=== PATIENT | female | born 1930 | race Caucasian/White ===

== ENCOUNTER 2018-12-03 14:21 | Inpatient (IN) ==
[2018-12-03] MEDS ORDERED: *HR* OxyCODONE Immed Rel 5 MG TABLET PO PRN (16:00)
[2018-12-03] MEDS ORDERED: Naloxone 0.4 MG/ML INJ IVP PRN (16:00)
[2018-12-03] MEDS ORDERED: Ondansetron 4 MG/2 ML VIAL IVP PRN (16:00)
[2018-12-03] MEDS ORDERED: *HR* HYDROcodone/Acet 5/325 mg TABLET PO PRN (16:00)
--- NOTE | 2018-12-03 16:16 | Internal Med History&Physical ---
Date of Encounter: 12/03/18 Time of Encounter: 17:14 Internal Medicine - H&P: HPI Chief complaint: Fall with L hip pain, L arm pain Admitted From: Emergency Dept History of present illness: Zayda Nixon is an 87 F w hx HTN, DM2, hypothyroidism, who p/w hip and shoulder pain after a fall. Patient making tea for herself this AM, turned and tripped over her shoelaces and had a mechanical fall from standing height, after which she noticed L hip pain and also that her left arm seemed sore. She denies dizziness, hitting head, N/V, CP, palpitations, SOB, or abd pain. Does have feeling in her left arm and leg. Denies current severe pain; says they treated her well at OSH ED. In the ED, vitals T 97.6, HR 62, RR 18, SBP 140-180, satting 96-98% on RA. Labs show WBC 12, Hb 10, Na 125, Cl 94, Cr 1, BG 320. XR humerus w closed minimally displaced avulsion fx greater tuberosity proximal L humerus c/w fx of rotator cuff tendon attachment. XR hip shows closed communited varus angulated IT fx proximal L femur. Past medical, surgical, social, and family histories reviewed and updated as below. No previous surgeries. Past Med Surg Social Fam HX - Past Medical History Medical history: diabetes, hypertension, thyroid disease - Social History Smoking Status: Never smoker Alcohol use: none Drug use: none - Family History Son Name: Age: 59 Family Member Ethnicity: Non- Living Status: Still Living Hx Family Cardiac Disorders: No Hx Family Respiratory Disorders: No Hx Family Cancer: No Hx Family GI Disorders: No Hx Family Genitourinary Disorders: No Hx Family Endocrine Disorder: No Hx Family Musculoskeletal Disorders: No Hx Family Neuromuscular Disorders: No Hx Family Neurologic Disorders: No Hx Family HEENT Disorders: No Hx Family Autoimmune Disorders: No Hx Family Reproductive Disorders: No Hx Family Psychosocial Disorders: No Hx Family Medical Disorders: No Internal Medicine - H&P: Meds Aspirin [Ecotrin] 325 mg PO DAILY 12/03/18 [History] Atorvastatin [Lipitor] 40 mg PO HS 12/03/18 [History] Furosemide [Lasix] 20 mg PO DAILY 12/03/18 [History] Glimepiride [Amaryl] 4 mg PO DAILY 12/03/18 [History] Levothyroxine [Synthroid] 25 mcg PO 0630 12/03/18 [History] Meloxicam [Mobic] 7.5 mg PO DAILY 12/03/18 [History] Metoprolol Succinate [Toprol Xl] 50 mg PO DAILY 12/03/18 [History] Omeprazole [PriLOSEC] 20 mg PO DAILY 12/03/18 [History] Ramipril [Altace] 10 mg PO DAILY 12/03/18 [History] Triamterene/HCTZ 37.5/25mg [Dyazide] 1 each PO DAILY 12/03/18 [History] Allergy/AdvReac Type Severity Reaction Status Date / Time celecoxib [From Celebrex] Allergy Hives Verified 12/03/18 12:31 codeine Allergy Hives Verified 12/03/18 12:31 All Systems PM: A 10-system review of systems was performed and is negative for pertinent findings except as documented above in the HPI. - Constitutional Vitals: Vital Signs Temp Pulse Resp BP Pulse Ox 12/03/18 17:06 98.3 F 78 16 171/80 96 Intake and Output 12/03/18 12/03/18 12/03/18 07:59 15:59 23:59 Other: Weight 72.5 kg Patient Weight 12/03/18 23:59 Weight 72.5 kg Exam: General: NAD, good eye contact, well appearing, elderly Head: Atraumatic, normocephalic. Face symmetric Eyes: EOMI, sclerae anicteric ENT: Mucous membranes dry. Normal oral mucosa. Trachea midline. Thoracic: No visible chest wall deformities. Normal breath sounds b/l, no wheezing or crackles Cardio: Normal S1 and S2, regular rate and rhythm Abdomen: Soft, nontender, nondistended. Extremities: Warm, well perfused. DP pulses 2+ b/l. No clubbing, cyanosis. No edema. L hip shortened and externally rotated, L arm in sling Skin: Intact. No rashes, bruises, or ulcers Neuro: Awake, fully oriented. Good memory, concentration, attention. Speech fluent. CN II-XII grossly intact. Strength 5/5 in b/l UE and LE - Summary of Assessment and Plan Summary of Assessment and Plan: Zayda Nixon is an 87 F w hx HTN, DM2, hypothyroidism, who p/w L [facility]R showing acute fracture L fem neck and L humerus. L hip fx: - Ortho consulted for likely OR tomorrow - SW consult - PT/OT for after surgery - supportive care with pain and nausea meds L humerus fx: - Ortho consulted Hyponatremia: hypovolemic, w hypochloremia, - will hold lasix and triamterene/hctz - give fluids overnight - recheck in AM DM2: uncontrolled, w hyperglycemia, holding glimepiride and use SSI pe rioperatively HTN: uncontrolled likely 2/2 pain, home toprol 50 daily HLD: home statin and ASA Hypothyroidism: home synthroid PPx: SCDs, then lovenox post-op Tele: yes Activity: per Ortho FEN: ADA then NPO@MN, no MIVF Lines: PIV Consults: Ortho Code: Full Dispo: patient requires inpatient eval and management at this time, anticipate 2-3 days, will likely need SNF
[2018-12-03] MEDS ORDERED: *HR* Dextrose 50 % in Water (Syg) 50 ML SYRINGE IVP PRN (17:22)
[2018-12-03] MEDS ORDERED: D5% in Water 1,000 ML IVC PRN (17:22)
[2018-12-03] MEDS ORDERED: Dextrose Gel 15 GM/37.5 ML TUBE PO PRN ×2 (17:22)
[2018-12-03] MEDS ORDERED: 0.9 % Sodium Chloride 1,000 ML IVC SCH (17:30)
--- NOTE | 2018-12-03 20:31 | Orthopedic Consult Note ---
Date of Encounter: 12/03/18 Time of Encounter: 20:26 History of Present Illness Chief complaint: Left shoulder and left hip pain HPI: Ms. Nixon is a 87 year old [id number] female sustained a fall in her home earlier today. She had immediate pain especially in her left hip and to a lesser degree in her shoulder. She ultimately presented to the emergency room where x-rays taken revealed evidence of a left hip that a left proximal humerus fracture. She is admitted for definitive management of her injuries. Patient denies dizziness, vertigo, blackouts. Patient sustained a mechanical fall resulting in the injuries. I reviewed the patient's completed history and physical exam as well as the completed medical record from both [facility] and [facility]. Pertinent orthopedic examination was a pleasant 87-year-old woman with her left upper extremity in a sling. She has tenderness about the shoulder proximal humerus. Left lower extremity is held in a shortened and rotated position. Distal neurosensory exam is grossly intact. I reviewed x-rays, left shoulder x-rays reveals a small avulsion-type fracture off the greater tuberosity region. X-rays of the left hip reveal a markedly displaced peritrochanteric-type fracture. Laboratory data includes a hemoglobin of 10.3 with a white blood cell count of 12.7. Platelet count is normal at 274. Chemistries include a low sodium of 125 with a normal BUN and creatinine. Blood sugars elevated at 300. Impression: 1. Displaced peritrochanteric fracture left proximal femur 2. Nondisplaced fracture greater tuberosity left proximal humerus Recommendation: In regards to her proximal humerus fracture no surgical intervention is anticipated. Would recommend use of a sling and gentle range of motion exercises as tolerated. Unfortunately, the femoral fracture will require surgical intervention. I discussed with the patient and her daughter that the best treatment option for her would be placement of an intramedullary nail. This would allow the fracture to be stabilized and for her to begin immediate ambulation. We discussed the surgical procedure as well as potential risks and complications including but not limited to bleeding, infection, nerve injury, stiffness, blood clots, nonunion or malunion as well as more commonly seen leg length or rotational deformities. Patient and family understand and agree to proceed with surgery as outlined. Informed consent has been signed. Anticipate proceeding with surgery tomorrow when operating time is available. Thank you very much for allowing me to see and care for Mrs. Nixon. Sincerely, Jose Baldwin,DO Past Med Surg Social Fam HX - Past Medical History Medical history: arthritis, diabetes, hypertension, thyroid disease - Social History Smoking Status: Never smoker Smokeless Tobacco Status: No Alcohol use: none Drug use: none - Family History Son Name: Age: 59 Family Member Ethnicity: Non- Living Status: Still Living Hx Family Cardiac Disorders: No Hx Family Respiratory Disorders: No Hx Family Cancer: No Hx Family GI Disorders: No Hx Family Genitourinary Disorders: No Hx Family Endocrine Disorder: No Hx Family Musculoskeletal Disorders: No Hx Family Neuromuscular Disorders: No Hx Family Neurologic Disorders: No Hx Family HEENT Disorders: No Hx Family Autoimmune Disorders: No Hx Family Reproductive Disorders: No Hx Family Psychosocial Disorders: No Hx Family Medical Disorders: No Medications and Allergies Aspirin [Ecotrin] 325 mg PO DAILY 12/03/18 [History] Atorvastatin [Lipitor] 40 mg PO HS 12/03/18 [History] Furosemide [Lasix] 20 mg PO DAILY 12/03/18 [History] Glimepiride [Amaryl] 4 mg PO DAILY 12/03/18 [History] Levothyroxine [Synthroid] 25 mcg PO 0630 12/03/18 [History] Meloxicam [Mobic] 7.5 mg PO DAILY 12/03/18 [History] Metoprolol Succinate [Toprol Xl] 50 mg PO DAILY 12/03/18 [History] Omeprazole [PriLOSEC] 20 mg PO DAILY 12/03/18 [History] Ramipril [Altace] 10 mg PO DAILY 12/03/18 [History] Triamterene/HCTZ 37.5/25mg [Dyazide] 1 each PO DAILY 12/03/18 [History] Allergy/AdvReac Type Severity Reaction Status Date / Time celecoxib [From Celebrex] Allergy Hives Verified 12/03/18 12:31 codeine Allergy Hives Verified 12/03/18 12:31 All Systems Reviewed: The remainder of the systems were reviewed and are negative Physical Exam - Constitutional Vitals: Temp Pulse Resp BP Pulse Ox 98.7 F 102 18 168/73 94 12/03/18 18:38 12/03/18 18:38 12/03/18 18:38 12/03/18 18:38 12/03/18 18:38 Results - Labs Labs: All other labs normal. - Diagnostic results Shoulder x-ray: image reviewed Hip x-ray: image reviewed Consult Discharge Plan - Plan Referrals: Julio Castillo CNP [Primary Care Provider] -
[2018-12-03] MEDS: Insulin LISPRO 300 UNITS/3 ML VIAL SQ SCH (20:36)
[2018-12-03] MEDS ORDERED: Insulin LISPRO 300 UNITS/3 ML VIAL SQ SCH (21:00)
[2018-12-03] MEDS: Acetaminophen 325 MG TABLET PO PRN (21:45)
[2018-12-04 01:38] LABS: Hematocrit 29.5 % (35.3-44.9); Hemoglobin 9.5 g/dL (11.5-15.4); Mean Corpuscular HGB Conc 32.2 g/dL (31.6-35.5); Mean Corpuscular Hemoglobin 26.9 pg (28.0-33.3); Mean Corpuscular Volume 83.6 fL (83.0-100.0); Mean Platelet Volume 11.1 fL (9.4-12.4); Platelet Count 197 K/mcL (140-400); Red Blood Count 3.53 M/mcL (3.82-4.97); White Blood Count 9.6 K/mcL (4.3-11.1)
[2018-12-04 01:45] LABS: INR 1.1; Prothrombin Time 12.7 Seconds (9.4-12.1)
[2018-12-04 02:02] LABS: BUN/Creatinine Ratio 25 (6-26); Blood Urea Nitrogen 19 mg/dL (8-23); Carbon Dioxide 19 mEq/L (23-29); Chloride 96 mEq/L (98-107); Glucose 171 mg/dL (70-105); Magnesium 1.8 mg/dL (1.6-2.6); Osmolality,Calculated 268 (280-300); Potassium 4.3 mEq/L (3.5-5.1); Sodium 126 mEq/L (136-145); eGFR For African Americans > 60 (> 60); eGFR For Non-African Americans > 60 (> 60)
[2018-12-04] MEDS: Acetaminophen 325 MG TABLET PO PRN ×2 (03:37→08:51)
[2018-12-04] MEDS ORDERED: Levothyroxine 25 MCG TABLET PO SCH (06:30)
[2018-12-04] MEDS: Insulin LISPRO 300 UNITS/3 ML VIAL SQ SCH ×2 (08:59→13:27)
[2018-12-04] MEDS ORDERED: Aspirin Enteric Coated 325 MG Tablet PO SCH (09:00)
[2018-12-04] MEDS ORDERED: Metoprolol XL (24 HR) Succ 50 MG TAB.ER.24H PO SCH (09:00)
--- NOTE | 2018-12-04 11:47 | Internal Med Progress Note ---
Hospitalist Progress Note - Encounter Date of Encounter: 12/04/18 Time of Encounter: 11:44 - Subjective Interval History: Patient was seen and examined at bed side today. She reports left shoulder pain which is aching, 7/10 in severity nonradiating. Pt also c/p left hip pain as well s/p fall. Pain is 9/10 in severity, sharp and aching, non radiating and worsened with movement of left hip. - Exam Vitals: Temp Pulse Resp BP Pulse Ox 99.5 F 78 16 138/65 95 12/04/18 07:00 12/04/18 07:00 12/04/18 07:00 12/04/18 07:00 12/04/18 07:00 Exam: General: NAD, good eye contact, well appearing, elderly Head: Atraumatic, normocephalic. Face symmetric RS: No visible chest wall deformities. Normal breath sounds b/l, no wheezing or crackles Cardio: Normal S1 and S2, regular rate and rhythm Abdomen: Soft, nontender, nondistended. Extremities: L hip shortened and externally rotated, L arm in sling. Left shoulder and left hip tenderness. Limited range of motion of left shoulder and left hip joint. Skin: Intact. No rashes, bruises, or ulcers Neuro: Awake, fully oriented. Good memory, concentration, attention. Speech fluent. CN II-XII grossly intact. Strength 5/5 in right LE and UE. Cannot perform left UE and LEexam due to pain due to fracture. - Assessment and Plan (1) Closed left hip fracture Current Visit: No Status: Acute Assessment and Plan: Patient is status post mechanical fall. Patient has a left hip x-ray done which showed markedly displaced peritrochanteric type fracture. Patient is currently on pain management. Orthopedic surgery and soft. PT and OT consult. Pt will need SNF placement after discharge. (2) Left humeral fracture Current Visit: No Status: Acute Assessment and Plan: Continue pain management. Per ortho conservative management. (3) DM2 (diabetes mellitus, type 2) Current Visit: Yes Status: Acute Assessment and Plan: Continue bolus insulin regimen. (4) HTN (hypertension) Current Visit: Yes Status: Acute Assessment and Plan: Continue metoprolol. (5) Hypothyroidism Current Visit: Yes Status: Acute Assessment and Plan: Continue Synthyroid 25 g. DVT Prophylaxis: TEDHose - Time Spent with Patient Total time spent is greater than 50% in coordination of care (as documented) at patient's floor/unit and/or counseling patient: 25 - 35 minutes Plan of Care Discussed with: patient Internal Medicine: Result - Labs CBC & Chem 7: 12/04/18 00:53 12/04/18 00:53 Labs: Short CBC 12/04/18 Range/Units 00:53 WBC 9.6 (4.3-11.1) K/mcL Hgb 9.5 L (11.5-15.4) g/dL Hct 29.5 L (35.3-44.9) % Plt Count 197 (140-400) K/mcL BMP 12/04/18 00:53 Sodium 126 L Potassium 4.3 Chloride 96 L Carbon Dioxide 19 L BUN 19 Creatinine 0.77 Glucose 171 H Calcium 9.0 - ABG Interpretation ABG results: PT/INR, D-dimer PT 12.7 Seconds (9.4-12.1) H 12/04/18 00:53 Consult Discharge Plan - Plan Referrals: Julio Castillo, [employer] [Primary Care Provider] - (1) Closed left hip fracture Qualifiers: Encounter type: initial encounter Qualified Code(s): S72.002A - Fracture of unspecified part of neck of left femur, initial encounter for closed fracture (2) Left humeral fracture Qualifiers: Encounter type: initial encounter Humerus Location: greater tuberosity Fracture type: closed Fracture alignment: nondisplaced Qualified Code(s): S42.255A - Nondisplaced fracture of greater tuberosity of left humerus, initial encounter for closed fracture (5) Hypothyroidism Qualifiers: Hypothyroidism type: acquired Qualified Code(s): E03.9 - Hypothyroidism, unspecified
[2018-12-04] MEDS ORDERED: *HR* Propofol 200 MG/20 ML VIAL IVP ONE (17:19)
[2018-12-04] MEDS ORDERED: Lidocaine -MPF 4% 5 ML AMPUL ONE (17:19)
[2018-12-04] MEDS ORDERED: Ondansetron 4 MG/2 ML VIAL ONE (17:19)
[2018-12-04] MEDS ORDERED: *HR* Succinylcholine 200 MG/10 ML VIAL IVP ONE (17:19)
[2018-12-04] MEDS ORDERED: Lidocaine -MPF 2% 2 ML VIAL ONE (17:19)
[2018-12-04] MEDS ORDERED: *HR* FentaNYL (PF) 100 MCG/2 ML VIAL ONE ×2 (17:20→20:17)
--- NOTE | 2018-12-04 18:16 | Anesthesia Evaluation PreOp ---
Date of Encounter: 12/04/18 Time of Encounter: 18:14 - Past History Planned Operation: Left Hip IM Nailing Cardiac History: HTN, Hyperlipidemia Pulmonary History: Denies Any Significant HX OCCASIONAL BABYSITTER History: Denies Any Significant HX Other Medical History: Diabetes Type II, Thyroid, Other (hyponatremia) Anesthesia History: Past Anesthesia (no prior surgery) Alcohol Use: none Drug use: none Medications and Allergies Aspirin [Ecotrin] 325 mg PO DAILY 12/03/18 [History] Atorvastatin [Lipitor] 40 mg PO HS 12/03/18 [History] Furosemide [Lasix] 20 mg PO DAILY 12/03/18 [History] Glimepiride [Amaryl] 4 mg PO DAILY 12/03/18 [History] Levothyroxine [Synthroid] 25 mcg PO 30 12/03/18 [History] Meloxicam [Mobic] 7.5 mg PO DAILY 12/03/18 [History] Metoprolol Succinate [Toprol Xl] 50 mg PO DAILY 12/03/18 [History] Omeprazole [PriLOSEC] 20 mg PO DAILY 12/03/18 [History] Ramipril [Altace] 10 mg PO DAILY 12/03/18 [History] Triamterene/HCTZ 37.5/25mg [Dyazide] 1 each PO DAILY 12/03/18 [History] Loratadine [Claritin] 1 tab PO DAILY 12/04/18 [History] Potassium Chloride [K-Tab ER] 8 meq PO DAILY 12/04/18 [History] Allergy/AdvReac Type Severity Reaction Status Date / Time celecoxib [From Celebrex] Allergy Hives Verified 12/04/18 10:49 codeine Allergy Hives Verified 12/04/18 10:49 - Meds/Allergy Pre-op Review Medications Reviewed: Yes Allergies Reviewed: Yes Beta Blockers on Current Med List: Yes If Beta Blockers taken, Date/Time (Last Dose taken): 12/04/2018 at 0851 Anesthesia Results - Labs 12/04/18 00:53 12/04/18 00:53 - Imaging EKG: report reviewed (12/04/2018 sinus rhythm) Anesthesia Exam Vital Signs/O2 Sat/Glucose, Most Recent Temp Pulse Resp BP Pulse Ox 97.6 F 78 16 139/60 96 12/04/18 15:02 12/04/18 15:02 12/04/18 15:02 12/04/18 15:02 12/04/18 15:02 Blood Glucose* 101 Height: 5'6''/1.68m Weight: 159 lbs NPO (# of Hours): 8 Pain Scale: 6 Pain Scale Used: Numeric (1 - 10) - HEENT Pupil (Motor): EOMI Mallampati: II Teeth: Edentulous Oral Opening: Greater than 3 - OCCASIONAL BABYSITTER LOC: Oriented OCCASIONAL BABYSITTER Motor: Normal RUE, Normal LUE, Normal RLE, Normal LLE, Normal Face OCCASIONAL BABYSITTER Sensory: Normal: RUE, LUE, RLE, LLE, Face - Cardiac Rhythm: Regular Murmur: None - Pulmonary Breath Sounds: bilateral Clear Respiratory Effort: Symmetrical Anesthesia Assess/Plan ASA Score: 3 Level of consciousness: Cooperative, Oriented, Tranquil Anesthetic Plan: General Monitoring Plan: Standard Monitors Recovery Plan: PACU
[2018-12-04] MEDS ORDERED: *HR* HYDROmorphone (PF) 1 MG/ML SYRINGE IVP PRN (19:24)
[2018-12-04] MEDS ORDERED: Lidocaine HCL 4 ML Topical Solution (Laryng-O-Jet Kit Sterile Pak) TP ONE (20:51)
[2018-12-04] MEDS ORDERED: Dexamethasone 4 MG/ML VIAL ONE (22:11)
[2018-12-04] MEDS ORDERED: *HR* Phenylephrine 10 MG/ML VIAL ONE (22:19)
[2018-12-04] MEDS ORDERED: *HR* Rocuronium Bromide 50 MG/5 ML VIAL ONE (22:29)
--- NOTE | 2018-12-04 23:18 | Operative Note ---
Date of procedure: 12/04/18 Pre-op diagnosis: Displaced, comminuted peritrochanteric fracture left proximal femur Post-op diagnosis: same Procedure: 1. Intramedullary nailing left hip/femur 2. Fluoroscopic guidance for IM nailing left hip/femur Implants: Synthes 12 mm x 400 mm left TFNA with a 110 mm x 11 mm helical blade and a 46 mm x 5.0 mm distal locking screw Complications: None Anesthesia: GETA Surgeon: Jose Baldwin Was there an music assistant present: No Estimated blood loss (cc): 200 Specimen: None Condition: stable Disposition: PACU Procedure in Detail: Findings: Preoperative x-rays revealed a complex comminuted peritrochanteric fracture of the left proximal femur with marked displacement. This was a very complex fracture with marked difficulty in reduction and fixation. Ultimately the fracture was able to be reduced into near anatomic position and stabilized with a long trochanteric femoral nail. Fluoroscopy was used to guide the reduction as well as placement of the nail with excellent alignment of the fracture site noted. No complicating features were encountered. Procedure: Patient was taken the operating room and while the hospital bed was administered a general anesthesia. Once adequate level anesthesia had been obtained the patient's transferred to the operating table. She was placed in left lower extremity longitudinal traction and the right lower extremity was positioned out of harm's way and well leg garcía. At this time fluoroscopy was introduced and utilized to guide a reduction. This is extremely difficult and required some hip flexion, adduction and traction and internal rotation. Position was improved considerably though not anatomic. The left hip and leg were then prepped and draped in normal standard fashion for surgery. Incision was made above the level of the trochanter dissection was carried through the subcutaneous tissue to the level of the fascia which was split and the tip of the greater trochanter was identified. Guidepin was placed and a coring type reamer was used to open up the tip of the trochanter. At this time the ball-tipped guide artemio was passed across the fracture site and down to the level of the knee. This is verified with intraoperative fluoroscopy. The canal was then essentially sounded with the flexible reamers up to and including the size 13.5. The length of the nail was measured to be a 400 mm. The 400 mm x 12 mm nail was placed on the insertion jig. It was then passed over the guidewire and care was taken to maintain a reduction on the fracture. The nail was seated. With fluoroscopic guidance and verification guidepin was placed into a central position in the femoral head. Length was measured to approximately 110. Head and neck were then reamed with the reamer and this was followed by placing the helical blade which was impacted into the subchondral bone. The helical blade was locked from rotation and then the fracture site was compressed. Insertion jig was removed. Excellent position of the proximal portion of the nails verified with multiplane are fluoroscopy. At this time attention was paid distally. The proximal most hole on the distal nail was then addressed by placing a locking screw with freehand technique utilizing fluoroscopy and "perfect circles". Multiplane fluoroscopy was now used to verify that the nail and the implants were in excellent position. Final fluoroscopic views were taken. Wounds then irrigated and closed with #1 Vicryl in the fascia and the deep subcutaneous tissue followed by multiple inverted interrupted 2-0 undyed Vicryl placing immediate subcutaneous tissue and then skin approximation with a running septic her stitches of 30 strata fix followed by skin glue and waffle foam. Patient is now transferred from the operating table hospital bed and then trans ported to the postanesthesia care unit in stable and satisfactory condition. All sponge and needle evidence for counts are correct. No specimens are sent for pathology.
--- NOTE | 2018-12-04 23:30 | Anesthesia Evaluation Post Op ---
Date of Encounter: 12/04/18 Time of Encounter: 23:30 - Vital Signs Vital Signs: Vital Signs/O2 Sat, Most Current Temp Pulse Resp BP Pulse Ox 99.8 F H 74 15 176/72 96 12/04/18 23:01 12/04/18 23:21 12/04/18 23:21 12/04/18 23:21 12/04/18 23:21 - Lungs Lungs: Clear Ascult./Percussion - Airway Airway: Non-obstructed - Cardiovascular Regular Rate - Mental Status Mental Status: Alert & Oriented, Answers Appropriately - Pain Pain Scale: 0 Pain Scale used: Numeric (1 - 10) - Nausea Vomiting Nausea Vomiting: Not Present - Hydration Hydration: NPO, Francis catheter - Discharge PostOp Status: Transfer Patient to floor
[2018-12-04] MEDS ORDERED: Acetaminophen 325 MG TABLET PO PRN (23:53)
[2018-12-04] MEDS ORDERED: Ondansetron 4 MG/2 ML VIAL IVP PRN (23:53)
[2018-12-04] MEDS ORDERED: D5% in Water 1,000 ML IVC PRN (23:53)
[2018-12-04] MEDS ORDERED: Dextrose Gel 15 GM/37.5 ML TUBE PO PRN ×2 (23:53)
[2018-12-04] MEDS ORDERED: *HR* Dextrose 50 % in Water (Syg) 50 ML SYRINGE IVP PRN (23:53)
[2018-12-04] MEDS ORDERED: Naloxone 0.4 MG/ML INJ IVP PRN (23:53)
[2018-12-05] MEDS: *HR* HYDROcodone/Acet 5/325 mg TABLET PO PRN ×2 (01:13→12:11)
[2018-12-05] MEDS ORDERED: *HR* Enoxaparin 40 MG/0.4 ML SYRINGE SQ SCH (06:00)
[2018-12-05 06:09] LABS: Basophils % 0.1 %; Hematocrit 26.5 % (35.3-44.9); Hemoglobin 8.6 g/dL (11.5-15.4); Immature Granulocytes % 0.5 % (0-4); Lymphocytes # 0.6 K/mcL (0.6-4.6); Lymphocytes % 6.9 %; Mean Corpuscular HGB Conc 32.5 g/dL (31.6-35.5); Mean Corpuscular Hemoglobin 27.6 pg (28.0-33.3); Mean Corpuscular Volume 84.9 fL (83.0-100.0); Mean Platelet Volume 10.9 fL (9.4-12.4); Monocytes # 0.6 K/mcL (0.0-1.3); Neutrophils # 7.5 K/mcL (1.6-8.9); Platelet Count 198 K/mcL (140-400); Red Blood Count 3.12 M/mcL (3.82-4.97); Red Cell Distribution Width 14.2 % (11.5-14.5); Segmented Neutrophils % 85.5 %; White Blood Count 8.7 K/mcL (4.3-11.1)
[2018-12-05 06:35] LABS: BUN/Creatinine Ratio 23 (6-26); Blood Urea Nitrogen 22 mg/dL (8-23); Calcium 8.4 mg/dL (8.6-10.3); Carbon Dioxide 24 mEq/L (23-29); Chloride 98 mEq/L (98-107); Glucose 211 mg/dL (70-105); Osmolality,Calculated 282 (280-300); Potassium 4.4 mEq/L (3.5-5.1); Sodium 131 mEq/L (136-145); eGFR For African Americans > 60 (> 60); eGFR For Non-African Americans 56 (> 60)
[2018-12-05] MEDS: Levothyroxine 25 MCG TABLET PO SCH (06:45)
[2018-12-05] MEDS: *HR* Enoxaparin 40 MG/0.4 ML SYRINGE SQ SCH (06:46)
[2018-12-05] MEDS: *HR* OxyCODONE Immed Rel 5 MG TABLET PO PRN (06:46)
[2018-12-05] MEDS: Insulin LISPRO 300 UNITS/3 ML VIAL SQ SCH ×3 (08:16→17:25)
[2018-12-05] MEDS: Furosemide 20 MG TABLET PO SCH (08:18)
[2018-12-05] MEDS: Aspirin Enteric Coated 325 MG Tablet PO SCH (08:18)
[2018-12-05] MEDS: Loratadine 10 MG TABLET PO SCH (08:18)
[2018-12-05] MEDS: Lisinopril 20 MG TABLET PO SCH (08:18)
[2018-12-05] MEDS: *HR* Glimepiride 4 MG TABLET PO SCH (08:18)
[2018-12-05] MEDS: Metoprolol XL (24 HR) Succ 50 MG TAB.ER.24H PO SCH (08:18)
--- NOTE | 2018-12-05 15:16 | Internal Med Progress Note ---
Hospitalist Progress Note - Encounter Date of Encounter: 12/05/18 Time of Encounter: 09:30 - Subjective Interval History: Patient underwent intramedullary nailing of left hip fracture done yesterday. She is stable post op and reports mild pain at surgical site. She denies palpitations, chest pain and SOB. - Exam Vitals: Temp Pulse Resp BP Pulse Ox 36.4 C 71 16 103/68 94 12/05/18 12:05 12/05/18 12:05 12/05/18 12:05 12/05/18 12:05 12/05/18 12:05 Exam: GENERAL: Not in distress. Alert and Oriented HEENT: EOMI, PERRLA MOUTH: Moist oral mucosa NECK:No JVD, No lymph nodes. CHEST AND LUNGS: Normal breath sounds, no wheezes or crackles HEART: S1 and S2 normal, no murmurs ABDOMEN: Soft, nontender, no organomegaly SKIN: Normal color, no rashes, no lesions EXTREMITIES: Clean dressing over surgical site. No active bleeding or evidence of hematoma formation observed. NEUROLOGICAL: Normal cognition, normal motor and sensory exam. - Assessment and Plan (1) Closed left hip fracture Current Visit: No Status: Acute Assessment and Plan: S/P ORIF on 12/04/2018 Patient admits mild pain at surgical site. She denies cheat pain, SOB and palpitations. To be reviewed by PT/OT to help determine next level of care (2) Acute blood loss anemia Current Visit: Yes Status: Acute Assessment and Plan: Hb drop from 9.5 to 8.6 Most likley related to intraoperative nlood loss and bleeding from fracture site. Will monitor H and H. (3) Left humeral fracture Current Visit: No Status: Acute Assessment and Plan: Continue pain management. Per ortho conservative management. (4) HTN (hypertension) Current Visit: Yes Status: Acute Assessment and Plan: Continue metoprolol. (5) DM2 (diabetes mellitus, type 2) Current Visit: Yes Status: Acute Assessment and Plan: Accucheks Insulin sliding scale (6) Hypothyroidism Current Visit: Yes Status: Acute Assessment and Plan: Continue Synthyroid 25 g. DVT Prophylaxis: SC lovenox - Time Spent with Patient Total time spent is greater than 50% in coordination of care (as documented) at patient's floor/unit and/or counseling patient: Internal Medicine: Result - Labs CBC & Chem 7: 12/05/18 05:17 12/05/18 05:17 Labs: Short CBC 12/05/18 Range/Units 05:17 WBC 8.7 (4.3-11.1) K/mcL Hgb 8.6 L (11.5-15.4) g/dL Hct 26.5 L (35.3-44.9) % Plt Count 198 (140-400) K/mcL Neutrophils # 7.5 (1.6-8.9) K/mcL BMP 12/05/18 05:17 Sodium 131 L Potassium 4.4 Chloride 98 Carbon Dioxide 24 BUN 22 Creatinine 0.95 Glucose 211 H Calcium 8.4 L - ABG Interpretation ABG results: PT/INR, D-dimer PT 12.7 Seconds (9.4-12.1) H 12/04/18 00:53 - Impressions Impressions Fluoroscopy 12/04/18 21:10 IMPRESSION: Images obtained during open reduction internal fixation of proximal left femur fracture. See procedure note for further details. D/ / Bambi Felix Cha, MD / Bambi Felix Cha, MD Interpreting Provider: Bambi Felix Cha, MD Consult Discharge Plan - Plan Referrals: Julio Castillo, BOOK CR[employer]IC [Primary Care Provider] - (1) Closed left hip fracture Qualifiers: Encounter type: initial encounter Qualified Code(s): S72.002A - Fracture of unspecified part of neck of left femur, initial encounter for closed fracture (3) Left humeral fracture Qualifiers: Encounter type: initial encounter Humerus Location: greater tuberosity Fracture type: closed Fracture alignment: nondisplaced Qualified Code(s): S42.255A - Nondisplaced fracture of greater tuberosity of left humerus, initial encounter for closed fracture (6) Hypothyroidism Qualifiers: Hypothyroidism type: acquired Qualified Code(s): E03.9 - Hypothyroidism, unspecified
--- NOTE | 2018-12-05 20:12 | Orthopedics Progress Note ---
Date of Encounter: 12/05/18 Time of Encounter: 20:10 Subjective Principal diagnosis: Peritrochanteric fracture left hip Interval history: 12/05/2018. Patient is postoperative day #1 IM nailing left peritrochanteric fracture with a long femoral nail. Patient is having anticipated pain. Vital signs are stable. Patient is afebrile. Dressings are all clean dry and intact. Neurosensory exam is intact intact. Limited strength and power in the hip secondary to pain. Hemoglobin is down to 8.6. Platelet count is normal at 198. White blood cell count normal. Impression: POD #1 IM nailing left hip fracture Recommendation: Continue with touchdown weightbearing only on the left lower extremity. If the dressings remain clean, dry and intact patient can shower. W e will need follow-up with me in about 3 weeks' time. Agree with need for short-term rehabilitation stay. Objective Vital signs: Vital Signs Temp Pulse Resp BP Pulse Ox 12/05/18 19:37 97.5 F L 75 16 104/61 95 12/05/18 15:46 97.9 F 80 16 100/65 95 12/05/18 12:05 97.6 F 71 16 103/68 94 12/05/18 08:34 91 12/05/18 08:14 98.2 F 80 16 136/71 93 12/05/18 04:39 98.5 F 64 16 144/78 98 12/05/18 03:00 98.5 F 68 14 122/66 98 12/05/18 02:07 98.7 F 71 14 110/58 93 12/05/18 01:18 97.9 F 68 16 147/74 98 12/05/18 00:37 98 12/05/18 00:34 98.5 F 67 16 153/67 98 12/04/18 23:53 98.5 F 75 14 177/75 100 12/04/18 23:31 99.7 F H 66 13 173/72 97 12/04/18 23:21 74 15 176/72 96 12/04/18 23:11 75 15 171/68 92 12/04/18 23:01 99.8 F H 74 14 170/71 98 Intake and Output 12/05/18 12/05/18 12/05/18 07:59 15:59 23:59 Intake Total 100 / 340 240 / 340 Output Total 300 / 300 Balance -200 / 40 240 / 40 Intake: IV Fluids 100 / 100 Ancef 2,000 MG In 0.9 % Sodium 100 / 100 Chloride 100 ML @ 200 mls/hr IVPB Q8HR KATIA Rx#:[id number] Oral 240 / 240 Output: Catheter 300 / 300 Other: Meal Lunch Percent of Meal Consumed 50% # Voids 1 # Bowel Movements 1 Weight 72.2 kg Blood Glucose* 178 188 Patient Weight 12/05/18 23:59 Weight 72.2 kg Incision: clean and dry - Labs CBC & BMP: 12/05/18 05:17 12/05/18 05:17 Labs: Abnormal lab results RBC 3.12 M/mcL (3.82-4.97) L 12/05/18 05:17 Hgb 8.6 g/dL (11.5-15.4) L 12/05/18 05:17 Hct 26.5 % (35.3-44.9) L 12/05/18 05:17 MCH 27.6 pg (28.0-33.3) L 12/05/18 05:17 PT 12.7 Seconds (9.4-12.1) H 12/04/18 00:53 Sodium 131 mEq/L (136-145) L 12/05/18 05:17 Chloride 96 mEq/L (98-107) L 12/04/18 00:53 Carbon Dioxide 19 mEq/L (23-29) L 12/04/18 00:53 Est GFR (Non-Af Amer) 56 (> 60) L 12/05/18 05:17 Glucose 211 mg/dL (70-105) H 12/05/18 05:17 POC Glucose 188 mg/dL (70-99) H 12/05/18 17:06 Calculated Osmolality 268 (280-300) L 12/04/18 00:53 Calcium 8.4 mg/dL (8.6-10.3) L 12/05/18 05:17 Consult Discharge Plan - Plan Referrals: Julio Castillo, NETWORK OPERATIONS SPECIALIST [Primary Care Provider] -
[2018-12-05] MEDS ORDERED: Insulin LISPRO 300 UNITS/3 ML VIAL SQ SCH (21:00)
[2018-12-06 04:10] LABS: Basophils % 0.2 %; Eosinophils % 0.2 %; Hematocrit 24.8 % (35.3-44.9); Hemoglobin 8.1 g/dL (11.5-15.4); Immature Granulocytes % 0.5 % (0-4); Lymphocytes % 17.4 %; Mean Corpuscular HGB Conc 32.7 g/dL (31.6-35.5); Mean Corpuscular Hemoglobin 27.6 pg (28.0-33.3); Mean Corpuscular Volume 84.4 fL (83.0-100.0); Mean Platelet Volume 10.4 fL (9.4-12.4); Monocytes # 1.3 K/mcL (0.0-1.3); Monocytes % 11.1 %; Neutrophils # 7.9 K/mcL (1.6-8.9); Platelet Count 205 K/mcL (140-400); Red Blood Count 2.94 M/mcL (3.82-4.97); Red Cell Distribution Width 14.5 % (11.5-14.5); Segmented Neutrophils % 70.6 %; White Blood Count 11.3 K/mcL (4.3-11.1)
[2018-12-06 04:33] LABS: Calcium 8.2 mg/dL (8.6-10.3); Potassium 4.5 mEq/L (3.5-5.1)
[2018-12-06] MEDS: *HR* Enoxaparin 40 MG/0.4 ML SYRINGE SQ SCH (05:27)
[2018-12-06] MEDS: Levothyroxine 25 MCG TABLET PO SCH (05:28)
[2018-12-06] MEDS: *HR* OxyCODONE Immed Rel 5 MG TABLET PO PRN ×3 (05:33→18:42)
[2018-12-06] MEDS: Aspirin Enteric Coated 325 MG Tablet PO SCH (08:37)
[2018-12-06] MEDS: *HR* Glimepiride 4 MG TABLET PO SCH (08:37)
[2018-12-06] MEDS: Loratadine 10 MG TABLET PO SCH (08:37)
[2018-12-06] MEDS: Lisinopril 20 MG TABLET PO SCH (08:37)
[2018-12-06] MEDS: Metoprolol XL (24 HR) Succ 50 MG TAB.ER.24H PO SCH (08:37)
[2018-12-06] MEDS: Furosemide 20 MG TABLET PO SCH (08:38)
[2018-12-06] MEDS: Insulin LISPRO 300 UNITS/3 ML VIAL SQ SCH ×3 (08:40→17:30)
[2018-12-06] MEDS: *HR* HYDROcodone/Acet 5/325 mg TABLET PO PRN (08:57)
--- NOTE | 2018-12-06 11:35 | Electrocardiograph Report ---
[place] [facility] Test Date: 2018-12-04 Pat Name: Zayda Nixon Department: 101 Room: [facility] Gender: F Camp Director: SS : 1930 Requested By: Jose Baldwin Order Number: [id number] Reading MD: Kyler Bishop Measurements Intervals [place] Rate: 74 P: 61 IL: 159 QRS: 16 QRSD: 98 T: 30 QT: 370 QTc: 397 Interpretive Statements SINUS RHYTHM wnl Electronically Signed On 12-06-2018 11:33:04 EDT by Kyler Bishop
[2018-12-06] MEDS ORDERED: 0.9 % Sodium Chloride 500 ML IVC SCH (14:00)
--- NOTE | 2018-12-06 14:00 | Internal Med Progress Note ---
Hospitalist Progress Note - Encounter Date of Encounter: 12/06/18 Time of Encounter: 08:17 - Subjective Interval History: No acute events overnight. Patient seen and examined. The patient states that she would like to stay in the hospital until her left hip heals from surgery. I explained to patient that she will need rehabilitation in order to regain function of her hip but she did not seem to like the idea of leaving the hospital - Exam Vitals: Temp Pulse Resp BP Pulse Ox 36.9 C 73 16 134/68 94 12/06/18 10:02 12/06/18 10:02 12/06/18 10:02 12/06/18 10:02 12/06/18 10:02 Exam: GENERAL: Not in distress. Alert and Oriented HEENT: EOMI, PERRLA MOUTH: Moist oral mucosa NECK:No JVD, No lymph nodes. CHEST AND LUNGS: Normal breath sounds, no wheezes or crackles HEART: S1 and S2 normal, no murmurs ABDOMEN: Soft, nontender, no organomegaly SKIN: Normal color, no rashes, no lesions EXTREMITIES: Clean dressing over surgical site. No active bleeding or evidence of hematoma formation observed. NEUROLOGICAL: Normal cognition, normal motor and sensory exam. - Assessment and Plan (1) Closed left hip fracture Current Visit: No Status: Acute Assessment and Plan: S/P ORIF on 12/04/2018 Patient admits mild pain at surgical site. She denies chest pain, SOB and palpitations. Arrangements are being made for inpatient rehabilitation after discharge. Patient likely to discharge tomorrow to a rehabilitation facility. Discussed with case management. (2) Acute blood loss anemia Current Visit: Yes Status: Acute Assessment and Plan: Hb at 8.1 g/dL today Most likley related to intraoperative nlood loss and bleeding from fracture site. Will continue to monitor H and H. (3) Left humeral fracture Current Visit: No Status: Acute Assessment and Plan: Continue pain management. Per ortho conservative management. (4) HTN (hypertension) Current Visit: Yes Status: Acute Assessment and Plan: Continue metoprolol. (5) DM2 (diabetes mellitus, type 2) Current Visit: Yes Status: Acute Assessment and Plan: Accucheks Insulin sliding scale (6) Hypothyroidism Current Visit: Yes Status: Acute Assessment and Plan: Continue Synthyroid 25 g. DVT Prophylaxis: SC lovenox - Time Spent with Patient Total time spent is greater than 50% in coordination of care (as documented) at patient's floor/unit and/or counseling patient: Internal Medicine: Result - Labs CBC & Chem 7: 12/06/18 03:53 12/06/18 03:53 Labs: Short CBC 12/06/18 Range/Units 03:53 WBC 11.3 H (4.3-11.1) K/mcL Hgb 8.1 L (11.5-15.4) g/dL Hct 24.8 L (35.3-44.9) % Plt Count 205 (140-400) K/mcL Neutrophils # 7.9 (1.6-8.9) K/mcL BMP 12/06/18 03:53 Sodium 127 L Potassium 4.5 Chloride 97 L Carbon Dioxide 23 BUN 40 H Creatinine 1.18 Glucose 177 H Calcium 8.2 L - ABG Interpretation ABG results: PT/INR, D-dimer PT 12.7 Seconds (9.4-12.1) H 12/04/18 00:53 Consult Discharge Plan - Plan Referrals: Julio Castillo, PRESSING MACHINE OPERATOR [Primary Care Provider] - (1) Closed left hip fracture Qualifiers: Encounter type: initial encounter Qualified Code(s): S72.002A - Fracture of unspecified part of neck of left femur, initial encounter for closed fracture (3) Left humeral fracture Qualifiers: Encounter type: initial encounter Humerus Location: greater tuberosity Fracture type: closed Fracture alignment: nondisplaced Qualified Code(s): S42.255A - Nondisplaced fracture of greater tuberosity of left humerus, initial encounter for closed fracture (6) Hypothyroidism Qualifiers: Hypothyroidism type: acquired Qualified Code(s): E03.9 - Hypothyroidism, unspecified
--- NOTE | 2018-12-06 16:13 | Discharge Summary ---
Date of Encounter: 12/06/18 Time of Encounter: 16:09 - Discharge Diagnosis (1) Closed left hip fracture Priority: Primary Status: Acute Qualifiers: Encounter type: initial encounter Qualified Code(s): S72.002A - Fracture of unspecified part of neck of left femur, initial encounter for closed fracture (2) Acute blood loss anemia Priority: Secondary Status: Acute (3) Left humeral fracture Priority: Secondary Status: Acute Qualifiers: Encounter type: initial encounter Humerus Location: greater tuberosity Fracture type: closed Fracture alignment: nondisplaced Qualified Code(s): S42.255A - Nondisplaced fracture of greater tuberosity of left humerus, initial encounter for closed fracture (4) HTN (hypertension) Priority: Secondary Status: Acute Qualifiers: Hypertension type: essential hypertension Qualified Code(s): I10 - Essential (primary) hypertension (5) DM2 (diabetes mellitus, type 2) Priority: Secondary Status: Acute Qualifiers: Diabetes mellitus termite control servicer insulin use: without long-term use Diabetes mellitus complication status: without complication Qualified Code(s): E11.9 - Type 2 diabetes mellitus without complications (6) Hypothyroidism Priority: Secondary Status: Acute Qualifiers: Hypothyroidism type: acquired Qualified Code(s): E03.9 - Hypothyroidism, unspecified Hospital course: Ms. Nixon is a 87 year old female Discharge discussed with: patient, family, nurse, case management - Time Spent with Patient Total time spent providing and/or coordinating discharge services: Time spent: Greater than 30 minutes (35) - Discharge Medications Prescriptions: New HYDROcodone/Acet 5/325 mg [Lewis 5-325 mg] 1 tab PO Q6H PRN 5 Days #20 tablet PRN Reason: Moderate Pain Continued Loratadine [Claritin] 1 tab PO DAILY Omeprazole [PriLOSEC] 20 mg PO DAILY Meloxicam [Mobic] 7.5 mg PO DAILY Metoprolol Succinate [Toprol Xl] 50 mg PO DAILY Glimepiride [Amaryl] 4 mg PO DAILY Ramipril [Altace] 10 mg PO DAILY Triamterene/HCTZ 37.5/25mg [Dyazide] 1 each PO DAILY Atorvastatin [Lipitor] 40 mg PO HS Aspirin [Ecotrin] 325 mg PO DAILY Levothyroxine [Synthroid] 25 mcg PO 0630 No Action Potassium Chloride [K-Tab ER] 8 meq PO DAILY Furosemide [Lasix] 20 mg PO DAILY Home Medications: Aspirin [Ecotrin] 325 mg PO DAILY 12/03/18 [History] Atorvastatin [Lipitor] 40 mg PO HS 12/03/18 [History] Furosemide [Lasix] 20 mg PO DAILY 12/03/18 [History] Glimepiride [Amaryl] 4 mg PO DAILY 12/03/18 [History] Levothyroxine [Synthroid] 25 mcg PO 0630 12/03/18 [History] Meloxicam [Mobic] 7.5 mg PO DAILY 12/03/18 [History] Metoprolol Succinate [Toprol Xl] 50 mg PO DAILY 12/03/18 [History] Omeprazole [PriLOSEC] 20 mg PO DAILY 12/03/18 [History] Ramipril [Altace] 10 mg PO DAILY 12/03/18 [History] Triamterene/HCTZ 37.5/25mg [Dyazide] 1 each PO DAILY 12/03/18 [History] Loratadine [Claritin] 1 tab PO DAILY 12/04/18 [History] Potassium Chloride [K-Tab ER] 8 meq PO DAILY 12/04/18 [History] HYDROcodone/Acet 5/325 mg [Lewis 5-325 mg] 1 tab PO Q6H PRN 5 Days #20 tablet 12/06/18 [Rx] Allergies/Adverse Reactions: Allergy/AdvReac Type Severity Reaction Status Date / Time celecoxib [From Celebrex] Allergy Hives Verified 12/04/18 10:49 codeine Allergy Hives Verified 12/04/18 10:49 Date of admission: 12/03/18 17:46 Primary care physician: Julio Castillo CNP Consults: 12/03/18 16:03 Consult to Orthopedic Surgery [CONS] Routine Consulting Provider: Jose Baldwin Reason for Consult: L hip fx, L humerus fx Call Completed: Yes 12/04/18 23:53 Consult to Occupational Therapy [CONS] Routine Comment: Evaluate, develop and implement POC Reason for Consult: post hip surgery Does patient have active BEDREST order?: No Is patient medically & hemodynamically stable?: Yes Consult to Physical Therapy [CONS] Routine Comment: Evaluate, develop and implement POC Reason for Consult: post hip surgery Does patient have active BEDREST order?: No Is patient medically & hemodynamically stable?: Yes Consult to Chocolate Refining Roller [CONS] Routine Reason for SW Consult: post -op hip fracture - Constitutional Vitals: Temp Pulse Resp BP Pulse Ox 36.9 C 73 16 134/68 94 12/06/18 10:02 12/06/18 10:02 12/06/18 10:02 12/06/18 10:02 12/06/18 10:02 Exam: GENERAL: Not in distress. Alert and Oriented HEENT: EOMI, PERRLA MOUTH: Moist oral mucosa NECK:No JVD, No lymph nodes. CHEST AND LUNGS: Normal breath sounds, no wheezes or crackles HEART: S1 and S2 normal, no murmurs ABDOMEN: Soft, nontender, no organomegaly SKIN: Normal color, no rashes, no lesions EXTREMITIES: Clean dressing over surgical site. No active bleeding or evidence of hematoma formation observed. NEUROLOGICAL: Normal cognition, normal motor and sensory exam. v - Patient Status Disposition: Transfer SNF Condition: Fair Functional capacity at discharge: wheelchair bound Overall status at discharge: patient is progressing back to baseline - Discharge Instructions Follow Up With: Julio Castillo EXTRACTOR OPERATOR SOLVENT PROCESS [Primary Care Provider] - Additional Instructions: Toe touch weight bearing to left leg - Diet and Activity Activity: as per physical therapy Diet: advance to your usual diet
--- NOTE | 2018-12-06 16:20 | Physician Discharge Referral ---
ExtendedCare Referral Info Transfer To: SNF Institutional Level of Care: Skilled - Diagnosis (1) Closed left hip fracture Priority: Primary Status: Acute (2) Acute blood loss anemia Priority: Secondary Status: Acute (3) Left humeral fracture Priority: Secondary Status: Acute (4) HTN (hypertension) Priority: Secondary Status: Acute (5) DM2 (diabetes mellitus, type 2) Priority: Secondary Status: Acute (6) Hypothyroidism Priority: Secondary Status: Acute - Transfer Medications Prescriptions: HYDROcodone/Acet 5/325 mg [[place] 5-325 mg] 1 tab PO Q6H PRN 5 Days #20 tablet PRN Reason: Moderate Pain Home Medications: Aspirin [Ecotrin] 325 mg PO DAILY 12/03/18 [History] Atorvastatin [Lipitor] 40 mg PO HS 12/03/18 [History] Furosemide [Lasix] 20 mg PO DAILY 12/03/18 [History] Glimepiride [Amaryl] 4 mg PO DAILY 12/03/18 [History] Levothyroxine [Synthroid] 25 mcg PO 0630 12/03/18 [History] Meloxicam [Mobic] 7.5 mg PO DAILY 12/03/18 [History] Metoprolol Succinate [Toprol Xl] 50 mg PO DAILY 12/03/18 [History] Omeprazole [PriLOSEC] 20 mg PO DAILY 12/03/18 [History] Ramipril [Altace] 10 mg PO DAILY 12/03/18 [History] Triamterene/HCTZ 37.5/25mg [Dyazide] 1 each PO DAILY 12/03/18 [History] Loratadine [Claritin] 1 tab PO DAILY 12/04/18 [History] Potassium Chloride [K-Tab ER] 8 meq PO DAILY 12/04/18 [History] HYDROcodone/Acet 5/325 mg [[place] 5-325 mg] 1 tab PO Q6H PRN 5 Days #20 tablet 12/06/18 [Rx] Allergies/Adverse Reactions: Allergy/AdvReac Type Severity Reaction Status Date / Time celecoxib [From Celebrex] Allergy Hives Verified 12/04/18 10:49 codeine Allergy Hives Verified 12/04/18 10:49 - Respiratory Orders Smoking Cessation: Smoking cessation has been advised. For more information, call the [place] Tobacco Quit Line at 5-689-LNGE-NOW. CERTIFICATION: I certify that the transfer of the above named patient to an Extended Care Facility is necessary for the continuing treatment of the diagnosis listed. The above information is true and accurate reflection of patient's current condition. Confidential - Redisclosure prohibited without a patient's written consent.
[2018-12-06 17:28] VITALS: BP 113/67
--- NOTE | 2018-12-06 17:58 | Orthopedics Progress Note ---
Date of Encounter: 12/06/18 Time of Encounter: 17:54 Subjective Principal diagnosis: Peritrochanteric fracture left hip Interval history: 12/05/2018. Patient is postoperative day #1 IM nailing left peritrochanteric fracture with a long femoral nail. Patient is having anticipated pain. Vital signs are stable. Patient is afebrile. Dressings are all clean dry and intact. Neurosensory exam is intact intact. Limited strength and power in the hip secondary to pain. Hemoglobin is down to 8.6. Platelet count is normal at 198. White blood cell count normal. Impression: POD #1 IM nailing left hip fracture Recommendation: Continue with touchdown weightbearing only on the left lower extremity. If the dressings remain clean, dry and intact patient can shower. W e will need follow-up with me in about 3 weeks' time. Agree with need for short-term rehabilitation stay. 12/06/2018. Patient POD #2 IM nailing left peritrochanteric fracture. Patient also with a a avulsion fracture of left greater tuberosity. No complaint referrable to the shoulder. Ambulation has been very limited thus far. Vital signs are stable. Patient is afebrile. Dressings remain clean dry and intact. Hemoglobin has dropped slightly to 8.1 g. Platelet count remains normal. White blood cell count is mildly elevated at 11.3. Impression: POD #2 IM nailing left hip fracture 2. A avulsion fracture left greater tuberosity of humerus Recommendation: Orthopedic status is stable for discharge. Continue with touchdown weightbearing on the left lower extremity. As always a dressings are dry and intact she can shower and does not require any incision care. Can start with weightbearing across the shoulder as tolerated utilizing a walker. We will need follow-up with me in about 2-3 weeks. I will not be available after today. If urgent orthopedic care is required please contact the orthopedic surgeon organic preparation technician. I will continue care as an outpatient in follow-up. Objective Vital signs: Vital Signs Temp Pulse Resp BP Pulse Ox 12/06/18 17:27 98 F 83 16 113/67 97 12/06/18 10:02 98.5 F 73 16 134/68 94 12/06/18 09:09 93 12/06/18 07:00 98.8 F 78 16 126/84 93 12/06/18 03:56 99.1 F 80 14 134/72 90 12/05/18 22:54 98.7 F 69 15 112/66 90 12/05/18 19:37 97.5 F L 75 16 104/61 95 Intake and Output 12/06/18 12/06/18 12/06/18 07:59 15:59 23:59 Intake Total 680 / 680 Output Total 500 / 500 Balance 680 / 180 -500 / 180 Intake: Oral 680 / 680 Output: Urine 500 / 500 Other: Meal Breakfast Percent of Meal Consumed 10% Weight 72.4 kg Blood Glucose* 162 191 145 Patient Weight 12/06/18 23:59 Weight 72.4 kg Incision: clean and dry - Labs CBC & BMP: 12/06/18 03:53 12/06/18 03:53 Labs: Abnormal lab results WBC 11.3 K/mcL (4.3-11.1) H 12/06/18 03:53 RBC 2.94 M/mcL (3.82-4.97) L 12/06/18 03:53 Hgb 8.1 g/dL (11.5-15.4) L 12/06/18 03:53 Hct 24.8 % (35.3-44.9) L 12/06/18 03:53 MCH 27.6 pg (28.0-33.3) L 12/06/18 03:53 PT 12.7 Seconds (9.4-12.1) H 12/04/18 00:53 Sodium 127 mEq/L (136-145) L 12/06/18 03:53 Chloride 97 mEq/L (98-107) L 12/06/18 03:53 Carbon Dioxide 19 mEq/L (23-29) L 12/04/18 00:53 BUN 40 mg/dL (8-23) H 12/06/18 03:53 Est GFR ( Amer) 53 (> 60) L 12/06/18 03:53 Est GFR (Non-Af Amer) 43 (> 60) L 12/06/18 03:53 BUN/Creatinine Ratio 34 (6-26) H 12/06/18 03:53 Glucose 177 mg/dL (70-105) H 12/06/18 03:53 POC Glucose 205 mg/dL (70-99) H 12/05/18 20:28 Calculated Osmolality 278 (280-300) L 12/06/18 03:53 Calcium 8.2 mg/dL (8.6-10.3) L 12/06/18 03:53 Consult Discharge Plan - Plan Additional Instructions: Toe touch weight bearing to left leg Referrals: Jose Baldwin DO [Non-Partnered Physician] - 12/28/18 9:30 am Julio Castillo, PARTNER [Primary Care Provider] - Prescriptions: HYDROcodone/Acet 5/325 mg [Harmony 5-325 mg] 1 tab PO Q6H PRN 5 Days #20 tablet PRN Reason: Moderate Pain
[2018-12-07] MEDS ORDERED: *HR* Enoxaparin 30 MG/0.3 ML SYRINGE SQ SCH (06:00)
== END 2018-12-06 18:46 | DRG 481 ==
LOC: PREOBSVTOIN 16:13 → 3NENU 17:46 → SUATTDRO 17:46
PROVIDERS: ADMIT Internal Medicine; ATTEND Internal Medicine

== ENCOUNTER 2018-12-08 18:41 | Inpatient (IN) ==
--- NOTE | 2018-12-08 20:23 | Internal Med History&Physical ---
<Farzana Mitchell - Last Filed: 12/09/18 01:01> Date of Encounter: 12/09/18 Time of Encounter: 20:23 Internal Medicine - H&P: HPI Chief complaint: Cardiac arrest Admitted From: Hospital to Hospital Transfer Plans for Post Hospital Care: Transfer Residential Facility History of present illness: Ms. Nixon is a 87 year old female with past medical history of diabetes, hypertension, thyroid disease who presented as a transfer from [facility] due to cardiac arrest. The patient had been a [facility] for PT/OT after a fall that resulted in left hip fracture for which she was taken to OR for intra medullary nailing of left hip due to peritrochanteric fracture. The patient had recently been complaining of left hip pain. Per medical records the patient was found to be unresponsive with no pulse and CPR was initiated. Glucose was noted to be 48 and she was given 1amp D50. It was noted that she was in V.fib. After ROSC the patient vomited and then was intubated as she was also altered. Repeat EKG showed atrial fibrillation for which she was given 20mg IV Cardizem. Next EKG showed ST elevations in V3. Then repeat EKG showed sinus rhythm. After Cardizem was given she had a systolic of 73 and was given 1L IVF and systolic improved to 92 to 102. [facility] had contacted cardiology whom recommended transferred to [facility] ICU. Patient was given 4mg versed prior to transfer. Upon my examination of the patient, she was intubated and sedated. Family were in the waiting room. The family had reported that they were at the bedside when the patient went unresponsive. They stated that the only thing she complained of was left hip pain. They stated that she had not complained of chest pain, shortness of breath, palpitations, abdominal pain. 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 Per medical records she denied smoking, drug use, alcohol use. Patient's family stated she is full code. [facility] labs on 12/08/2018: WBC 11.2, hemoglobin 7.1, platelets 215, sodium 125, potassium 3.9, magnesium 2.5, creatinine 1.12, glucose 220, AST 214, ALT 242, troponin 0.16, BNP 267, Ddimer 6032. -ABG: pH 7.29, CO2 28, O2 128, HCO3 15. -Urinalysis: blood, RBC 50-100, leukocyte esterase, WBC 50-100 -chest x-ray showing possible mediastinal widening, increased perihilar opacity that could be edema or atelectasis. Past Med Surg Social Fam HX - Past Medical History Attestation: No The following information was validated with the patient. Source: old records reviewed Medical history: arthritis, diabetes, hypertension, thyroid disease Psychiatric history: no psych history - Past Surgical History Surgical History: orthopedic, other (Left hip pinning) - Social History Smoking Status: Never smoker Smokeless Tobacco Status: No Alcohol use: none Drug use: none - Family History Son Adopted: No Family Member Ethnicity: Non- Living Status: Still Living Hx Family Cardiac Disorders: No Hx Family Respiratory Disorders: No Hx Family Cancer: No Hx Family GI Disorders: No Hx Family Endocrine Disorder: No Hx Family Neuromuscular Disorders: No Hx Family Neurologic Disorders: No Hx Family HEENT Disorders: No Hx Family Autoimmune Disorders: No Internal Medicine - H&P: Meds Aspirin [Ecotrin] 325 mg PO DAILY 12/03/18 [History] Atorvastatin [Lipitor] 40 mg PO HS 12/03/18 [History] Furosemide [Lasix] 20 mg PO DAILY 12/03/18 [History] Glimepiride [Amaryl] 4 mg PO DAILY 12/03/18 [History] Levothyroxine [Synthroid] 25 mcg PO 0630 12/03/18 [History] Meloxicam [Mobic] 7.5 mg PO DAILY 12/03/18 [History] Metoprolol Succinate [Toprol Xl] 50 mg PO DAILY 12/03/18 [History] Omeprazole [PriLOSEC] 20 mg PO DAILY 12/03/18 [History] Ramipril [Altace] 10 mg PO DAILY 12/03/18 [History] Triamterene/HCTZ 37.5/25mg [Dyazide] 1 each PO DAILY 12/03/18 [History] Loratadine [Claritin] 1 tab PO DAILY 12/04/18 [History] Potassium Chloride [K-Tab ER] 8 meq PO DAILY 12/04/18 [History] HYDROcodone/Acet 5/325 mg [Busby 5-325 mg] 1 tab PO Q4H PRN 12/06/18 [History] Allergy/AdvReac Type Severity Reaction Status Date / Time celecoxib [From Celebrex] Allergy Hives Verified 12/04/18 10:49 codeine Allergy Hives Verified 12/04/18 10:49 ROS unobtainable: due to endotracheal tube All Systems PM: A 10-system review of systems was performed and is negative for pertinent findings except as documented above in the HPI. - Constitutional Exam: Gen.: Vitals noted. No acute distress. Intubated and sedated HEENT: oropharynx clear, Normocephalic, atraumatic Neck: Supple. No adenopathy. Cardiac: RRR, no murmur, +S1/S2 Pulmonary: CTA bilaterally, no wheezes, rales or rhonchi, equal chest expansion Abdomen: soft, nontender, Bowel sounds noted, no guarding MSK: no joint swelling noted skin: incision clean and intact on left hip. No ecchymosis Extremities: no BLE edema, nontender calf, no cyanosis or clubbing Neuro: intubated and sedated Internal Med - H&P Results - Labs CBC & Chem 7: 12/08/18 21:27 12/08/18 21:27 - Assessment and Plan (1) Acute respiratory failure with hypoxia Current Visit: Yes Status: Acute Assessment and plan: Presented with acute respiratory failure with hypoxia. Required intubation at [facility] on 12/08/2018. Etiology is undetermined but concerning for PE due to recent orthopedic surgery on 12/04/18. CTA chest negative for PE. Likely contributed by patient vomiting and concern for aspiration pneumonia. She has recent hospitalization within 90 days that puts her at risk for hospital acquired pneumonia. -Initial at [facility] chest x-ray showing possible mediastinal widening, increased perihilar opacity that could be edema or atelectasis. -Repeat Chest x-ray showed no acute cardiopulmonary process. -Chest CTA demonstrating no pulmonary embolism. Trace bilateral pleural effusions. Right middle lobe opacification. 7.5 mm noncalcified right upper lobe pulmonary nodules recommending follow-up. 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 Mild cardiomegaly with atherosclerotic coronary calcification. Elevated right heart pressures. -BNP 267 -Ddimer 6032 -Initial ABG: pH 7.29, CO2 28, O2 128, HCO3 15. Acute respiratory acidosis. -Sedation with fentanyl plan: -ABG ordered -antibiotics for possible aspiration pneumonia including Zosyn and vancomycin. Will de-escalate as able -pulmonology/ critical care consulted for vent management -daily ABG -may add propofol for sedation (2) Cardiac arrest Current Visit: Yes Status: Acute Assessment and plan: Patient had cardiac arrest at [facility] for which CPR was initiated. Glucose was noted to be 48 and she was given 1amp D50. Per medical records she was noted that she was in V.fib. Repeat EKG showed atrial fibrillation was noted for which she was given Cardizem. After ROSC the patient vomited and then was intubated as she was also altered. Next EKG showed ST elevations in V3. Then repeat EKG showed sinus rhythm. It was noted after Cardizem is greater than she had a systolic of 73 and was given 1L IVF and systolic improved to 92 to 102. -Etiology for cardiac arrest is unknown. Initial concern for PE but was negative by CTA chest. Chest CTA showing elevated right heart pressures; possib le pulmonary hypertension. May be secondary to arrhythmia such as V. fib [facility] had noted. -Right IJ central line placed due to hypotension -EKG 12/08/2018 at [facility]: normal sinus rhythm, HR 81, no ST or T wave changes indicating ischemia. QT/QTC 374/411, ID 192. -Troponin 0.16 > 0.98 -Ddimer 6032 -potassium 4.4, magnesium 2.3 -TSH 1.2 -Chest CTA demonstrating no pulmonary embolism. Trace bilateral pleural effusions. Right middle lobe opacification. 7.5 mm noncalcified right upper lobe pulmonary nodules recommending follow-up. 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 Mild cardiomegaly with atherosclerotic coronary calcification. Elevated right heart pressures. plan: -trend troponin. Likely going to increase due to CPR -continue cooling protocol post cardiac arrest -cardiology consulted -echocardiogram ordered -continue cardiac telemetry (3) Aspiration pneumonia due to inhalation of vomitus Current Visit: Yes Status: Acute Assessment and plan: Concerned for aspiration pneumonia due to patient vomiting after cardiac arrest and prior to intubation. -Initial at [facility] chest x-ray showing possible mediastinal widening, increa sed perihilar opacity that could be edema or atelectasis. -Repeat Chest x-ray showed no acute cardiopulmonary process. -On mechanical ventilation plan: -continue antibiotics for presumptive aspiration pneumonia with vancomycin and Zosyn -MRSA screen ordered -chest CTA ordered -continue vent management (4) Anemia Current Visit: Yes Status: Acute Assessment and plan: Patient with normocytic anemia, hemoglobin 7.0 on admission. Baseline hemoglobin unknown. Prior to orthopedic surgery hemoglobin 10.3 on 12/03/2018. -Possibly multifactorial contributed by blood loss from surgery but also possible G.I. losses. [facility] noted that she had a stool guiac positive. No reports on past endoscopy. There was RBC on urinalysis. -MCV 88 -reticulocyte count 28.1 mildly low -no obvious active bleeding plan: -ordered 2 units PRBC -ordered type and screened -stool occult test ordered -Protonix 40 mg IV Q 12 H -monitor H&H Qualifiers: Anemia type: unspecified type Qualified Code(s): D64.9 - Anemia, unspecified (5) Elevated liver enzymes Current Visit: Yes Status: Acute Assessment and plan: Elevated liver enzymes in the setting of hypertension and cardiac arrest. The hypotension likely caused liver injury. No history of cirrhosis or liver dis ease. -AST 548, ALT 278 -alkaline phosphatase 84 -PT 12.5, INR 1.1 -platelets 261 plan: -continue IV fluids -liver ultrasound ordered -continue conservative management -will monitor LFT (6) Hyponatremia Current Visit: No Status: Acute Assessment and plan: Hypotonic hyponatremia. Appears euvolemic. Daughter noted patient had poor oral intake On admission sodium 126. Patient had received 2L IVF prior to transfer and urine studies. Baseline sodium unknown. -sodium 127 -Osmolality 277 > 280 -urine osmolality 472, creatinine 62, sodium 55.9 plan -IVR rate 100ml/hr ordered -will continue to monitor sodium q2h (7) Abnormal urinalysis Current Visit: Yes Status: Acute Assessment and plan: Per reports patient had been asymptomatic with no dysuria. -Urinalysis showing blood, RBC 50-100, leukocyte esterase, WBC 50-100. -No Jose Enrique hematuria plan: -urine culture collected at [facility]. Will await results (8) Closed left hip fracture Current Visit: No Status: Acute Assessment and plan: Patient is status post intramedullary nailing of left hip after peritrochanteric fracture on 12/04/2018. Qualifiers: Encounter type: initial encounter Qualified Code(s): S72.002A - Fracture of unspecified part of neck of left femur, initial encounter for closed fracture (9) DM2 (diabetes mellitus, type 2) Current Visit: No Status: Chronic Assessment and plan: Patient has history of diabetes on oral treatment. Patient was noted to be hypoglycemic with glucose of 48 prior to cardiac arrest. -Glucose 203 -continue low-dose sliding scale insulin -continue Accu check -NPO Qualifiers: Diabetes mellitus snf insulin use: without snf use Diabetes mellitus complication status: without complication Qualified Code(s): E11.9 - Type 2 diabetes mellitus without complications (10) Hypothyroidism Current Visit: No Status: Acute Assessment and plan: Patient with known hypothyroidism taking levothyroxine. -TSH ordered -will continue medication once verified by pharmacy Qualifiers: Hypothyroidism type: acquired Qualified Code(s): E03.9 - Hypothyroidism, unspecified (11) HTN (hypertension) Current Visit: No Status: Acute Assessment and plan: History of hypertension taking triamterene/HCTZ, ramipril, potassium, Toprol, Lasix, atorvastatin, aspirin. Patient has been hypotensive on admission. -BP 112/57 -will hold antihypertensive medications as the patient has been noted to be hypotensive. Will order PRN's if needed Qualifiers: Hypertension type: essential hypertension Qualified Code(s): I10 - Essential (primary) hypertension (12) DVT prophylaxis Current Visit: Yes Status: Acute Assessment and plan: EPCD due to anemia - Time Spent With Patient Total time spent is greater than 50% in coordination of care (as documented) at patient's floor/unit and/or counseling patient: <India Bynum - Last Filed: 12/09/18 06:19> Date of Encounter: 12/09/18 Internal Medicine - H&P: HPI History of present illness: Ms. Nixon is a 87 year old female All Systems PM: A 10-system review of systems was performed and is negative for pertinent findings except as documented above in the HPI. - Constitutional Vitals: Temp Pulse Resp BP Pulse Ox 96.4 F L 78 15 80/50 97 12/09/18 04:00 12/09/18 04:00 12/09/18 04:06 12/09/18 04:06 12/09/18 04:06 Internal Med - H&P Results - Labs CBC & Chem 7: 12/08/18 21:27 12/09/18 01:16 Labs: Short CBC 12/08/18 Range/Units 21:27 WBC 9.0 (4.3-11.1) K/mcL Hgb 7.0 L (11.5-15.4) g/dL Hct 22.7 L (35.3-44.9) % Plt Count 261 (140-400) K/mcL Neutrophils # 7.1 (1.6-8.9) K/mcL BMP 12/08/18 12/09/18 21:27 01:16 Sodium 127 L 129 L Potassium 4.4 Chloride 100 Carbon Dioxide 15 L BUN 42 H Creatinine 1.04 Glucose 203 H Calcium 7.4 L Cardiac Enzymes 12/08/18 Range/Units 21:27 Troponin I 0.98 H* (< 0.04) ng/mL Liver Function 12/08/18 Range/Units 21:27 Total Bilirubin 0.8 (0.3-1.0) mg/dL AST 548 H (13-39) Units/L ALT 278 H (7-52) Units/L Alkaline Phosphatase 84 (34-104) Units/L Albumin 2.7 L (3.5-5.7) g/dL - Impressions ITS Impressions Chest X-Ray 12/08/18 20:46 IMPRESSION: Interval repositioning of an endotracheal tube, terminating 1.7 cm above the audrey. D/ /08/2018 21:58:22 Hussain Schwartz MD / zeina Interpreting Provider: Hussain Schwartz MD Chest CTA 12/08/18 21:20 IMPRESSION: 1. No evidence of pulmonary embolic disease. 2. Trace bilateral pleural effusions. Dependent bilateral lower lobe and right middle lobe opacification, likely atelectasis although infiltrate is not excluded. 3. 7.5 mm noncalcified right upper lobe pulmonary nodule. Imaging follow-up recommendations below. 4. 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 Differential considerations include a thymic cyst. Consider imaging follow-up in 6 months time. 5. Mild cardiomegaly with atherosclerotic coronary calcification. Elevated right heart pressures. D/ / Ariel Cronin MD / Ariel Cronin MD Interpreting Provider: Ariel Cronin MD Chest X-Ray 12/08/18 22:17 IMPRESSION: No acute cardiopulmonary disease. Central line tip in the proximal right atrium, 3 cm beyond the cavoatrial junction. Endotracheal tube tip 11 mm above the audrey, consider withdrawal 2 cm. D/ / Ariel Cronin MD / Ariel Cronin MD Interpreting Provider: Ariel Cronin MD - Assessment and Plan (1) Closed left hip fracture Current Visit: No Status: Acute Qualifiers: Encounter type: initial encounter Qualified Code(s): S72.002A - Fracture of unspecified part of neck of left femur, initial encounter for closed fracture (2) HTN (hypertension) Current Visit: No Status: Acute Qualifiers: Hypertension type: essential hypertension Qualified Code(s): I10 - Essential (primary) hypertension (3) DM2 (diabetes mellitus, type 2) Current Visit: No Status: Chronic Qualifiers: Diabetes mellitus snf insulin use: without snf use Diabetes mellitus complication status: without complication Qualified Code(s): E11.9 - Type 2 diabetes mellitus without complications (4) Hypothyroidism Current Visit: No Status: Acute Qualifiers: Hypothyroidism type: acquired Qualified Code(s): E03.9 - Hypothyroidism, unspecified (5) Hyponatremia Current Visit: No Status: Acute (6) Acute respiratory failure with hypoxia Current Visit: Yes Status: Acute (7) Cardiac arrest Current Visit: Yes Status: Acute (8) Aspiration pneumonia due to inhalation of vomitus Current Visit: Yes Status: Acute (9) Anemia Current Visit: Yes Status: Acute Qualifiers: Anemia type: unspecified type Qualified Code(s): D64.9 - Anemia, unspecified (10) Elevated liver enzymes Current Visit: Yes Status: Acute (11) Abnormal urinalysis Current Visit: Yes Status: Acute (12) DVT prophylaxis Current Visit: Yes Status: Acute - Time Spent With Patient Total time spent is greater than 50% in coordination of care (as documented) at patient's floor/unit and/or counseling patient: - Attending Attestation Patient seen and examined independently face to face 10:10pm , including review of objective data including labs. I agree with plan of care as documented below by the resident. Fast Exam performed at bedside showed no A/p: Acute hypoxic respiratory failure with elevated A-A gap. CTA showed no PE. Likely Concern for HCAP due to pneumonia >2 days post admission increased risk of developing ARDS. Agree with Echo, and antibiotic therapy. Post-Cardiac arrest continue hypothermia for Neuroprotection. Shock: Etiology Cardiac, septic, hypovolemic. Central line placed and on levophed. Fluids given. Acute Anemia: FAST exam at bedside showed no active bleeding, Retic count low, BUN high. Continue IV PPI BID, HH trending and transfuse Hgb. Patient received 1 unit of RBC. CCT spent more than 39 minutes.
[2018-12-08] MEDS ORDERED: Naloxone 0.4 MG/ML INJ IVP PRN (20:24)
[2018-12-08] MEDS ORDERED: Artificial Tears SOLN 15 ML BOTTLE BOTH EYES PRN (20:29)
[2018-12-08] MEDS: FentaNYL (PF) 1,000 MCG in 0.9 % Sodium Chloride 80 ML IVC SCH (21:09)
[2018-12-08] MEDS ORDERED: Isovue-370 500 ML BOTTLE IVP ONE (21:20)
[2018-12-08 21:43] LABS: Eosinophils % 0.1 %; Hematocrit 22.7 % (35.3-44.9); Immature Granulocytes % 0.9 % (0-4); Lymphocytes % 10.2 %; Mean Corpuscular HGB Conc 30.8 g/dL (31.6-35.5); Mean Corpuscular Hemoglobin 27.1 pg (28.0-33.3); Mean Platelet Volume 10.4 fL (9.4-12.4); Monocytes % 9.7 %; Platelet Count 261 K/mcL (140-400); Red Blood Count 2.58 M/mcL (3.82-4.97); Red Cell Distribution Width 14.8 % (11.5-14.5); Segmented Neutrophils % 79.1 %
[2018-12-08 21:44] LABS: Lymphocytes # 0.9 K/mcL (0.6-4.6); Monocytes # 0.9 K/mcL (0.0-1.3); Neutrophils # 7.1 K/mcL (1.6-8.9)
[2018-12-08 21:53] LABS: Immature Reticulocyte % 28.8 % (11.0-38.0); Retculocyte # 0.07 M/mcL (0.05-0.10); Reticulocyte % 2.6 % (1.6-2.8)
[2018-12-08 22:01] LABS: Alanine Aminotransferase 278 Units/L (7-52); Albumin 2.7 g/dL (3.5-5.7); Alkaline Phosphatase 84 Units/L (34-104); Aspartate Amino Transferase 548 Units/L (13-39); BUN/Creatinine Ratio 40 (6-26); Bilirubin,Total 0.8 mg/dL (0.3-1.0); Blood Urea Nitrogen 42 mg/dL (8-23); Calcium 7.4 mg/dL (8.6-10.3); Carbon Dioxide 15 mEq/L (23-29); Chloride 100 mEq/L (98-107); Globulin 2.6 g/dL (2.4-3.5); Glucose 203 mg/dL (70-105); Magnesium 2.3 mg/dL (1.6-2.6); Osmolality,Calculated 280 (280-300); Potassium 4.4 mEq/L (3.5-5.1); Sodium 127 mEq/L (136-145); Total Protein 5.3 g/dL (6.4-8.9); eGFR For African Americans > 60 (> 60); eGFR For Non-African Americans 50 (> 60)
[2018-12-08 22:14] LABS: Sodium, Urine 55.9 mEq/L
[2018-12-08 22:14] LABS: Troponin I 0.98 ng/mL (< 0.04)
[2018-12-08 22:18] LABS: Platelet Estimate Normal (Normal)
[2018-12-08 22:21] LABS: Burr Cells 1+ (Not Present)
[2018-12-08 22:24] LABS: Acanthocytes 1+ (Not Present); Polychromasia 1+ (Not Present)
[2018-12-08 22:33] LABS: INR 1.1; Prothrombin Time 12.5 Seconds (9.4-12.1)
[2018-12-08] MEDS: Chlorhexidine Rinse 15 ML MOUTHWASH MM SCH ×2 (22:41→23:41)
--- NOTE | 2018-12-08 22:55 | Procedure Note ---
<Farzana Mitchell - Last Filed: 12/08/18 22:51> Date of procedure: 12/08/18 Pre-op diagnosis: hypotension Post-op diagnosis: same Procedure: Date: 12/08/2018 Time: 22:07 Indication: Hemodynamic monitoring/Intravenous access Resident: Farzana Mitchell Attending: Dr. Bynum A time-out was completed verifying correct patient, procedure, site, positioning, and special equipment if applicable. The patient was placed in a dependent position appropriate for central line placement based on the vein to be cannulated. The patients right neck was prepped and draped in sterile fashion. 1% Lidocaine was used to anesthetize the surrounding skin area. A triple lumen 9-Swazi Cordis catheter was introduced into the the internal jugular vein using the Seldinger technique and under ultrasound guidance. The catheter was threaded smoothly over the guide wire and appropriate blood return was obtained. Each lumen of the catheter was evacuated of air and flushed with sterile saline. The catheter was then sutured in place to the skin and a sterile dressing applied. Perfusion to the extremity distal to the point of catheter insertion was checked and found to be adequate. Dr. Bynum was present for the entire procedure. Estimated Blood Loss: 2cc The patient tolerated the procedure well and there were no complications. Follow up CXR was ordered. Anesthesia: local Surgeon: Farzana Mitchell Was there an construction administrative assistant present: Yes Bath Steward: India Bynum Estimated blood loss (cc): 2 Specimen: none Pathology: none sent Condition: critical Disposition: ICU <India Bynum - Last Filed: 12/08/18 23:19> Procedure: I was present with resident. I discussed the case with the resident and agree with the residents note. Chest x-ray reviewed showed no pneumothorax, or complications. ET tube was retracted.
[2018-12-08] MEDS ORDERED: Dextrose Gel 15 GM/37.5 ML TUBE PO PRN ×2 (23:09)
[2018-12-08] MEDS ORDERED: *HR* Dextrose 50 % in Water (Syg) 50 ML SYRINGE IVP PRN (23:09)
[2018-12-08] MEDS ORDERED: D5% in Water 1,000 ML IVC PRN (23:09)
[2018-12-08] MEDS: Piperacillin/Tazobactam 3.375 GM in 0.9 % Sodium Chloride Mini Bag 100 ML IVPB SCH (23:41)
[2018-12-08] MEDS ORDERED: 0.9 % Sodium Chloride 250 ML ONE (23:45)
[2018-12-09] MEDS: Insulin LISPRO 300 UNITS/3 ML VIAL SQ SCH ×6 (00:05→23:59)
[2018-12-09] MEDS: Artificial Tears SOLN 15 ML BOTTLE BOTH EYES SCH ×7 (00:05→23:59)
[2018-12-09 00:30] LABS: Thyroid Stimulating Hormone 1.258 mcIU/mL (0.340-5.600)
[2018-12-09] MEDS: 0.9 % Sodium Chloride 1,000 ML IVC SCH ×3 (01:56→20:26)
[2018-12-09] MEDS: Norepinephrine 4 MG in 0.9 % Sodium Chloride 250 ML IVC SCH ×2 (03:30→10:00)
[2018-12-09] MEDS: FentaNYL (PF) 1,000 MCG in 0.9 % Sodium Chloride 80 ML IVC SCH ×3 (03:32→21:24)
[2018-12-09 05:21] LABS: ABG Base Excess -5 mEq/L (-2 to 3); ABG HCO3 20 mEq/L (21-27); ABG Oxygen Saturation 99 % (95-98); ABG PCO2 38 mmHg (35-45); ABG PH 7.34 pH Units (7.32-7.45); ABG PO2 121 mmHg (85-104); ABG TCO2 22 mEq/L (20-26); Blood Gas Modality PRVC; Blood Gas PEEP 5 cm H2O; Blood Gas VT 450 cc
[2018-12-09 05:25] LABS: Basophils % 0.1 %; Eosinophils # 0.1 K/mcL (0.0-0.6); Eosinophils % 1.3 %; Hematocrit 26.4 % (35.3-44.9); Hemoglobin 8.4 g/dL (11.5-15.4); Immature Granulocytes % 0.6 % (0-4); Lymphocytes # 1.7 K/mcL (0.6-4.6); Lymphocytes % 17.1 %; Mean Corpuscular HGB Conc 31.8 g/dL (31.6-35.5); Mean Corpuscular Hemoglobin 27.7 pg (28.0-33.3); Mean Corpuscular Volume 87.1 fL (83.0-100.0); Mean Platelet Volume 9.9 fL (9.4-12.4); Monocytes # 1.2 K/mcL (0.0-1.3); Monocytes % 11.4 %; Nucleated Red Blood Cells 0.2 /100 WBC (0); Platelet Count 236 K/mcL (140-400); Red Blood Count 3.03 M/mcL (3.82-4.97); Red Cell Distribution Width 14.7 % (11.5-14.5); Segmented Neutrophils % 69.5 %; White Blood Count 10.1 K/mcL (4.3-11.1)
[2018-12-09 05:43] LABS: Troponin I 5.02 ng/mL (< 0.04)
[2018-12-09] MEDS: Pantoprazole 40 MG VIAL IVP SCH ×2 (06:03→17:26)
[2018-12-09 06:15] LABS: Platelet Estimate Normal (Normal)
[2018-12-09] MEDS ORDERED: Ringers Solution, Lactated 1,000 ML IVC ONE ×2 (06:15→06:45)
[2018-12-09 06:58] LABS: Alanine Aminotransferase 230 Units/L (7-52); Albumin 2.7 g/dL (3.5-5.7); Alkaline Phosphatase 91 Units/L (34-104); Aspartate Amino Transferase 425 Units/L (13-39); BUN/Creatinine Ratio 46 (6-26); Bilirubin,Total 1.2 mg/dL (0.3-1.0); Blood Urea Nitrogen 45 mg/dL (8-23); Calcium 7.6 mg/dL (8.6-10.3); Carbon Dioxide 17 mEq/L (23-29); Chloride 105 mEq/L (98-107); Globulin 2.6 g/dL (2.4-3.5); Glucose 132 mg/dL (70-105); Osmolality,Calculated 283 (280-300); Potassium 4.1 mEq/L (3.5-5.1); Sodium 130 mEq/L (136-145); Total Protein 5.3 g/dL (6.4-8.9); eGFR For African Americans > 60 (> 60); eGFR For Non-African Americans 54 (> 60)
[2018-12-09] MEDS ORDERED: Amiodarone Premix 360 MG/200 ML BAG IVC ONE (07:46)
[2018-12-09] MEDS: Piperacillin/Tazobactam 3.375 GM in 0.9 % Sodium Chloride Mini Bag 100 ML IVPB SCH ×3 (07:48→23:59)
--- NOTE | 2018-12-09 07:49 | Pulmonology Consult Note ---
<Vamsi Haywood F - Last Filed: 12/09/18 07:48> Date of Encounter: 12/09/18 Time of Encounter: 07:48 History of Present Illness Consult date: 12/09/18 Requesting physician: Nabeel Devine Reason for consult: hypoxemia Chief complaint: cardiac arrest Past Med Surg Social Fam HX - Past Medical History Source: unable to obtain, old records reviewed, nursing notes reviewed Medical history: arthritis, diabetes, hypertension, thyroid disease Psychiatric history: no psych history - Past Surgical History Surgical History: orthopedic, other (Left hip pinning) - Social History Smoking Status: Never smoker Smokeless Tobacco Status: No Alcohol use: none Drug use: none - Family History Son Adopted: No Family Member Ethnicity: Non- Living Status: Still Living Hx Family Cardiac Disorders: No Hx Family Respiratory Disorders: No Hx Family Cancer: No Hx Family GI Disorders: No Hx Family Endocrine Disorder: No Hx Family Neuromuscular Disorders: No Hx Family Neurologic Disorders: No Hx Family HEENT Disorders: No Hx Family Autoimmune Disorders: No Medications and Allergies Aspirin [Ecotrin] 325 mg PO DAILY 12/03/18 [History] Atorvastatin [Lipitor] 40 mg PO HS 12/03/18 [History] Furosemide [Lasix] 20 mg PO DAILY 12/03/18 [History] Glimepiride [Amaryl] 4 mg PO DAILY 12/03/18 [History] Levothyroxine [Synthroid] 25 mcg PO 0630 12/03/18 [History] Meloxicam [Mobic] 7.5 mg PO DAILY 12/03/18 [History] Metoprolol Succinate [Toprol Xl] 50 mg PO DAILY 12/03/18 [History] Omeprazole [PriLOSEC] 20 mg PO DAILY 12/03/18 [History] Ramipril [Altace] 10 mg PO DAILY 12/03/18 [History] Triamterene/HCTZ 37.5/25mg [Dyazide] 1 each PO DAILY 12/03/18 [History] Loratadine [Claritin] 1 tab PO DAILY 12/04/18 [History] Potassium Chloride [K-Tab ER] 8 meq PO DAILY 12/04/18 [History] HYDROcodone/Acet 5/325 mg [Shandaken 5-325 mg] 1 tab PO Q4H PRN 12/06/18 [History] Allergy/AdvReac Type Severity Reaction Status Date / Time celecoxib [From Celebrex] Allergy Hives Verified 12/04/18 10:49 codeine Allergy Hives Verified 12/04/18 10:49 ROS unobtainable: due to endotracheal tube All Systems: The remainder of the systems were reviewed and are negative Physical Examination Vital Signs: Vital Signs, Last 4 Hours Temp Pulse Resp BP Pulse Ox 12/09/18 07:00 78 22 86/50 99 12/09/18 06:00 96.1 F L 95 28 139/58 96 12/09/18 05:15 22 100 12/09/18 05:00 96.1 F L 82 18 103/49 100 12/09/18 04:06 15 80/50 97 12/09/18 04:00 96.4 F L 81 17 87/63 100 Ventilator Settings Ventilator Settings: Ventilator Settings, Last 8 Hours Ventilator Tidal Volume 450 Setting Ventilator Tidal Volume 450 Setting Ventilator Tidal Volume 450 Setting Ventilator Tidal Volume 450 Setting Ventilator Tidal Volume 450 Setting Ventilator Tidal Volume 450 Setting Ventilator Tidal Volume 450 Setting Ventilator Tidal Volume 450 Setting Ventilator Tidal Volume 450 Setting Ventilator Tidal Volume 450 Setting Ventilator Tidal Volume 450 Setting Ventilator Tidal Volume 450 Setting Ventilator Respiratory Rate 14 Setting Ventilator Respiratory Rate 14 Setting Ventilator Respiratory Rate 14 Setting Ventilator Respiratory Rate 14 Setting Ventilator Respiratory Rate 14 Setting Ventilator Respiratory Rate 14 Setting Ventilator Respiratory Rate 14 Setting Ventilator Respiratory Rate 14 Setting Ventilator Respiratory Rate 14 Setting Ventilator Respiratory Rate 14 Setting Ventilator Respiratory Rate 14 Setting Ventilator Respiratory Rate 14 Setting Actual Respiratory Rate 23 Actual Respiratory Rate 21 Actual Respiratory Rate 20 Actual Respiratory Rate 18 Actual Respiratory Rate 17 Actual Respiratory Rate 18 Actual Respiratory Rate 18 Actual Respiratory Rate 19 Actual Respiratory Rate 18 Actual Respiratory Rate 19 Actual Respiratory Rate 18 Positive End Expiratory 5 Pressure Positive End Expiratory 5 Pressure Positive End Expiratory 5 Pressure Positive End Expiratory 5 Pressure Positive End Expiratory 5 Pressure Positive End Expiratory 5 Pressure Positive End Expiratory 5 Pressure Positive End Expiratory 5 Pressure Positive End Expiratory 5 Pressure Positive End Expiratory 5 Pressure Positive End Expiratory 5 Pressure Positive End Expiratory 5 Pressure Peak Inspiratory Airway 7.2 Pressure Peak Inspiratory Airway 8.4 Pressure Peak Inspiratory Airway 25 Pressure Peak Inspiratory Airway 32 Pressure Peak Inspiratory Airway 7.5 Pressure Peak Inspiratory Airway 15 Pressure Peak Inspiratory Airway 8.5 Pressure Peak Inspiratory Airway 7.7 Pressure Peak Inspiratory Airway 5.6 Pressure Results - Laboratory Findings CBC and BMP: 12/09/18 05:00 12/09/18 05:00 ABG ABG pH 7.34 pH Units (7.32-7.45) 12/09/18 05:15 ABG pCO2 38 mmHg (35-45) 12/09/18 05:15 ABG pO2 121 mmHg (85-104) H 12/09/18 05:15 ABG O2 Saturation 99 % (95-98) H 12/09/18 05:15 PT/INR, D-dimer PT 12.5 Seconds (9.4-12.1) H 12/08/18 21:27 Abnormal lab findings: Abnormal lab results RBC 3.03 M/mcL (3.82-4.97) L 12/09/18 05:00 Hgb 8.4 g/dL (11.5-15.4) L 12/09/18 05:00 Hct 26.4 % (35.3-44.9) L 12/09/18 05:00 MCH 27.7 pg (28.0-33.3) L 12/09/18 05:00 MCHC 30.8 g/dL (31.6-35.5) L 12/08/18 21:27 RDW 14.7 % (11.5-14.5) H 12/09/18 05:00 Nucleated RBCs/100 WBC 0.2 /100 WBC (0) H 12/09/18 05:00 Polychromasia 1+ (Not Present) A 12/08/18 21:27 Anna Cells 1+ (Not Present) A 12/08/18 21:27 Acanthocytes (Spur) 1+ (Not Present) A 12/08/18 21:27 Retic Hgb Equivalent 28.1 pg (28.61-36.33) L 12/08/18 21:27 PT 12.5 Seconds (9.4-12.1) H 12/08/18 21:27 ABG pO2 121 mmHg (85-104) H 12/09/18 05:15 ABG HCO3 20 mEq/L (21-27) L 12/09/18 05:15 ABG O2 Saturation 99 % (95-98) H 12/09/18 05:15 ABG Base Excess -5 mEq/L (-2 to 3) L 12/09/18 05:15 Sodium 130 mEq/L (136-145) L 12/09/18 05:00 Carbon Dioxide 17 mEq/L (23-29) L 12/09/18 05:00 BUN 45 mg/dL (8-23) H 12/09/18 05:00 Est GFR (Non-Af Amer) 54 (> 60) L 12/09/18 05:00 BUN/Creatinine Ratio 46 (6-26) H 12/09/18 05:00 Glucose 132 mg/dL (70-105) H 12/09/18 05:00 POC Glucose 180 mg/dL (70-99) H 12/08/18 23:33 Lactic Acid 3.4 mmol/L (0.5-2.2) H 12/08/18 21:27 Calcium 7.6 mg/dL (8.6-10.3) L 12/09/18 05:00 Total Bilirubin 1.2 mg/dL (0.3-1.0) H 12/09/18 05:00 AST 425 Units/L (13-39) H 12/09/18 05:00 ALT 230 Units/L (7-52) H 12/09/18 05:00 Troponin I 5.02 ng/mL (< 0.04) H* 12/09/18 05:00 Serum Total Protein 5.3 g/dL (6.4-8.9) L 12/09/18 05:00 Albumin 2.7 g/dL (3.5-5.7) L 12/09/18 05:00 Albumin/Globulin Ratio 1.0 (1.1-2.2) L 12/09/18 05:00 Crossmatch See Detail 12/08/18 21:27 - Microbiology Findings Microbiology Findings: Microbiology, Last 48 Hours 12/09/18 00:48 Blood Culture - Preliminary Peripheral Venipuncture Culture is incubating and being continuously monitored for growth. Final report to follow. - Clinical Findings Intake & Output: Intake & Output 12/08/18 12/08/18 12/09/18 15:59 23:59 07:59 Intake Total 800.0 / 800.0 Output Total 650 / 650 400 / 400 Balance -650 / -650 400.0 / 400.0 Weight 80 kg 80 kg Consult Discharge Plan - Plan Referrals: Julio Castillo, CLINICAL LABORATORY MANAGER [Primary Care Provider] - <Mandy Narvaez - Last Filed: 12/09/18 08:16> Date of Encounter: 12/09/18 All Systems: The remainder of the systems were reviewed and are negative Physical Examination Vital Signs: Vital Signs, Last 4 Hours Temp Pulse Resp BP Pulse Ox 12/09/18 07:00 78 22 86/50 99 12/09/18 06:00 96.1 F L 95 28 139/58 96 12/09/18 05:15 22 100 12/09/18 05:00 96.1 F L 82 18 103/49 100 Ventilator Settings Ventilator Settings: Ventilator Settings, Last 8 Hours Ventilator Tidal Volume 450 Setting Ventilator Tidal Volume 450 Setting Ventilator Tidal Volume 450 Setting Ventilator Tidal Volume 450 Setting Ventilator Tidal Volume 450 Setting Ventilator Tidal Volume 450 Setting Ventilator Tidal Volume 450 Setting Ventilator Tidal Volume 450 Setting Ventilator Tidal Volume 450 Setting Ventilator Tidal Volume 450 Setting Ventilator Tidal Volume 450 Setting Ventilator Respiratory Rate 14 Setting Ventilator Respiratory Rate 14 Setting Ventilator Respiratory Rate 14 Setting Ventilator Respiratory Rate 14 Setting Ventilator Respiratory Rate 14 Setting Ventilator Respiratory Rate 14 Setting Ventilator Respiratory Rate 14 Setting Ventilator Respiratory Rate 14 Setting Ventilator Respiratory Rate 14 Setting Ventilator Respiratory Rate 14 Setting Ventilator Respiratory Rate 14 Setting Actual Respiratory Rate 23 Actual Respiratory Rate 21 Actual Respiratory Rate 20 Actual Respiratory Rate 18 Actual Respiratory Rate 17 Actual Respiratory Rate 18 Actual Respiratory Rate 18 Actual Respiratory Rate 19 Actual Respiratory Rate 18 Actual Respiratory Rate 19 Positive End Expiratory 5 Pressure Positive End Expiratory 5 Pressure Positive End Expiratory 5 Pressure Positive End Expiratory 5 Pressure Positive End Expiratory 5 Pressure Positive End Expiratory 5 Pressure Positive End Expiratory 5 Pressure Positive End Expiratory 5 Pressure Positive End Expiratory 5 Pressure Positive End Expiratory 5 Pressure Positive End Expiratory 5 Pressure Peak Inspiratory Airway 7.2 Pressure Peak Inspiratory Airway 8.4 Pressure Peak Inspiratory Airway 25 Pressure Peak Inspiratory Airway 32 Pressure Peak Inspiratory Airway 7.5 Pressure Peak Inspiratory Airway 15 Pressure Peak Inspiratory Airway 8.5 Pressure Peak Inspiratory Airway 7.7 Pressure Results - Laboratory Findings CBC and BMP: 12/09/18 05:00 12/09/18 05:00 ABG ABG pH 7.34 pH Units (7.32-7.45) 12/09/18 05:15 ABG pCO2 38 mmHg (35-45) 12/09/18 05:15 ABG pO2 121 mmHg (85-104) H 12/09/18 05:15 ABG O2 Saturation 99 % (95-98) H 12/09/18 05:15 PT/INR, D-dimer PT 12.5 Seconds (9.4-12.1) H 12/08/18 21:27 Abnormal lab findings: Abnormal lab results RBC 3.03 M/mcL (3.82-4.97) L 12/09/18 05:00 Hgb 8.4 g/dL (11.5-15.4) L 12/09/18 05:00 Hct 26.4 % (35.3-44.9) L 12/09/18 05:00 MCH 27.7 pg (28.0-33.3) L 12/09/18 05:00 MCHC 30.8 g/dL (31.6-35.5) L 12/08/18 21:27 RDW 14.7 % (11.5-14.5) H 12/09/18 05:00 Nucleated RBCs/100 WBC 0.2 /100 WBC (0) H 12/09/18 05:00 Polychromasia 1+ (Not Present) A 12/08/18 21:27 Keno Cells 1+ (Not Present) A 12/08/18 21:27 Acanthocytes (Spur) 1+ (Not Present) A 12/08/18 21:27 Retic Hgb Equivalent 28.1 pg (28.61-36.33) L 12/08/18 21:27 PT 12.5 Seconds (9.4-12.1) H 12/08/18 21:27 ABG pO2 121 mmHg (85-104) H 12/09/18 05:15 ABG HCO3 20 mEq/L (21-27) L 12/09/18 05:15 ABG O2 Saturation 99 % (95-98) H 12/09/18 05:15 ABG Base Excess -5 mEq/L (-2 to 3) L 12/09/18 05:15 Sodium 130 mEq/L (136-145) L 12/09/18 05:00 Carbon Dioxide 17 mEq/L (23-29) L 12/09/18 05:00 BUN 45 mg/dL (8-23) H 12/09/18 05:00 Est GFR (Non-Af Amer) 54 (> 60) L 12/09/18 05:00 BUN/Creatinine Ratio 46 (6-26) H 12/09/18 05:00 Glucose 132 mg/dL (70-105) H 12/09/18 05:00 POC Glucose 180 mg/dL (70-99) H 12/08/18 23:33 Lactic Acid 3.4 mmol/L (0.5-2.2) H 12/08/18 21:27 Calcium 7.6 mg/dL (8.6-10.3) L 12/09/18 05:00 Total Bilirubin 1.2 mg/dL (0.3-1.0) H 12/09/18 05:00 AST 425 Units/L (13-39) H 12/09/18 05:00 ALT 230 Units/L (7-52) H 12/09/18 05:00 Troponin I 5.02 ng/mL (< 0.04) H* 12/09/18 05:00 Serum Total Protein 5.3 g/dL (6.4-8.9) L 12/09/18 05:00 Albumin 2.7 g/dL (3.5-5.7) L 12/09/18 05:00 Albumin/Globulin Ratio 1.0 (1.1-2.2) L 12/09/18 05:00 Crossmatch See Detail 12/08/18 21:27 - Microbiology Findings Microbiology Findings: Microbiology, Last 48 Hours 12/09/18 00:48 Blood Culture - Preliminary Peripheral Venipuncture Culture is incubating and being continuously monitored for growth. Final report to follow. - Clinical Findings Intake & Output: Intake & Output 12/08/18 12/09/18 12/09/18 23:59 07:59 15:59 Intake Total 800.0 / 800.0 Output Total 650 / 650 400 / 400 Balance -650 / -650 400.0 / 400.0 Weight 80 kg 80 kg - Attending Attestation I examined this patient and my medical decision-making was reviewed with the Resident Physician. I agree with the documented findings, disposition and treatment plan as described except to the extent set forth below. Patient seen and examined. Labs, radiology, chart personally reviewed. Agree with resident's history and physical, assessment, plan with following comments: TAILINGS MAN: Patient follows commands that is on sedation and it appears to be she would have good neurological outcome, continue sedation and I will start rewarming since patient seems to be neurologically intact for now and keep some sedation for the comfort. Pulmonary: Acceptable oxygenation and ventilation. As soon as body temperature normalized and after cardiology evaluation and then will consider spontaneous breathing trial and hopefully she will be extubated the next 24 hours. Cardiovascular: Status post cardiac arrest and patient needs to be on amiodarone and awaiting for cardiology evaluation. GI: Nutrition per dietary and GI prophylaxis per routine Heme: DVT prophylaxis per routine ID: Unlikely infectious. Renal; urine out put and renal function reviewed Endorcine: blood glucose is monitored Lines: all lines checked and no evidence of infections Skin: skin care to prevent pressure ulcers per nursing routine care Dispo: ICU Code: Full. ICU team met with the family and I have explained to them that prognosis seems to be good and in my opinion this is hopefully reversible and not terminal for that reason her CODE STATUS was reversed to be full code at this time. Prognosis. Fair. I spent 45 min of Critical Care time with this patient. It involved decision making of high complexity to assess, manipulate, and support vital organ system failure and/or to prevent further life threatening deterioration of the patient' s condition. The time involved in the performance of separately reportable procedures was not counted toward critical care time.
[2018-12-09] MEDS ORDERED: 0.9 % Sodium Chloride 1,000 ML IVC ONE (08:30)
[2018-12-09] MEDS: Hydrocortisone Sodium Succ 100 MG/2 ML VIAL IVP SCH ×4 (09:01→23:59)
--- NOTE | 2018-12-09 09:14 | Internal Med Progress Note ---
Hospitalist Progress Note - Encounter Date of Encounter: 12/09/18 Time of Encounter: 07:30 - Subjective Interval History: Patient admitted overnight in transfer from [facility]. Patient had a VFib arrest, received CPR, defibrillation once, and meds with ROSC. She was then transferred to [facility] ICU last night. This morning, I rounded on her with Dr. Narvaez and MDR team. She was exhibiting some purposeful activity and following commands this morning. Dr. Narvaez recommended re-warming her now and we met with family. Patient had prior expressed wishes of DNR. However, given her independent lifestyle and good quality of life prior to her hip fracture, Dr. Narvaez recommended changing her to full code at this time while we try to re-warm her and pursue cardiac work-up. Family agreed. About an hour later, patient became hypotensive and bradycardic. She is now on maximal Levophed support. I am bolusing her with IVF, giving stress dose steroids, and may add second pressor if necessary. I then met with family again to inform them of her current status. If she continues to decline despite maximal support, then we may have to revert back to DNR code status and consider comfort measures only. For now, we will continue current aggressive measures, and I will update family throughout the day. - Exam Vitals: Temp Pulse Resp BP Pulse Ox 97.0 F L 75 22 86/52 99 12/09/18 08:00 12/09/18 08:00 12/09/18 08:19 12/09/18 08:19 12/09/18 08:19 Exam: General: sedated, intubated, on cooling protocol with active re-warming HEENT: ETT/OG in place; neck supple Chest: coarse breath sounds; crackles; RRR with ectopy noted Abdomen: soft, NT, ND, + BS Ext: no edema; cool extremities; delayed cap refill Neuro: sedated; responds to painful and loud verbal commands Skin: cool extremities; dry - Assessment and Plan (1) Cardiac arrest Current Visit: Yes Status: Acute Assessment and Plan: 1. Amiodarone added this morning due to runs of NSVT and cardiac arrest last night. 2. Troponin is elevated. 3. ECHO ordered. 4. Discussed with cardiology. 5. Discussed with family and updated status. 6. Active re-warming initiated. (2) Aspiration pneumonia due to inhalation of vomitus Current Visit: Yes Status: Acute Assessment and Plan: 1. Active re-warming initiated. 2. Continue vent management for now per pulmonary. 3. Continue antibiotics and pulmonary support. Follow cultures and de-escalate as necessary. (3) NSTEMI (non-ST elevated myocardial infarction) Current Visit: Yes Status: Acute Assessment and Plan: 1. Trend troponins, EKG's, ECHO. 2. Cardiology consult. 3. Will start ACS dosing of heparin. 4. ASA, STATIN. (4) Anemia Current Visit: Yes Status: Acute Assessment and Plan: 1. Suspect post-op blood loss from her recent surgery and dilutional effect. 2. NO report or sign of GI blood loss. Will order stool hemoccult. 3. Trend H/H and transfuse PRBC as needed, especially in the setting of NTESMI. (5) DVT prophylaxis Current Visit: Yes Status: Acute Assessment and Plan: 1. Heparin drip as above. - Time Spent with Patient Total time spent is greater than 50% in coordination of care (as documented) at patient's floor/unit and/or counseling patient: 25 - 35 minutes Plan of Care Discussed with: other (Dr. Narvaez, MDR team, family) Internal Medicine: Result - Labs CBC & Chem 7: 12/09/18 05:00 12/09/18 05:00 Labs: Short CBC 12/08/18 12/09/18 Range/Units 21:27 05:00 WBC 9.0 10.1 (4.3-11.1) K/mcL Hgb 7.0 L 8.4 L (11.5-15.4) g/dL Hct 22.7 L 26.4 L (35.3-44.9) % Plt Count 261 236 (140-400) K/mcL Neutrophils # 7.1 7.0 (1.6-8.9) K/mcL BMP 12/08/18 12/09/18 12/09/18 21:27 01:16 05:00 Sodium 127 L 129 L 130 L Potassium 4.4 4.1 Chloride 100 105 Carbon Dioxide 15 L 17 L BUN 42 H 45 H Creatinine 1.04 0.98 Glucose 203 H 132 H Calcium 7.4 L 7.6 L Cardiac Enzymes 12/08/18 12/09/18 Range/Units 21:27 05:00 Troponin I 0.98 H* 5.02 H* (< 0.04) ng/mL Liver Function 12/08/18 12/09/18 Range/Units 21:27 05:00 Total Bilirubin 0.8 1.2 H (0.3-1.0) mg/dL AST 548 H 425 H (13-39) Units/L ALT 278 H 230 H (7-52) Units/L Alkaline Phosphatase 84 91 (34-104) Units/L Albumin 2.7 L 2.7 L (3.5-5.7) g/dL - ABG Interpretation ABG results: ABG ABG pH 7.34 pH Units (7.32-7.45) 12/09/18 05:15 ABG pCO2 38 mmHg (35-45) 12/09/18 05:15 ABG pO2 121 mmHg (85-104) H 12/09/18 05:15 ABG O2 Saturation 99 % (95-98) H 12/09/18 05:15 PT/INR, D-dimer PT 12.5 Seconds (9.4-12.1) H 12/08/18 21:27 - Impressions Impressions Chest X-Ray 12/08/18 20:46 IMPRESSION: Interval repositioning of an endotracheal tube, terminating 1.7 cm above the audrey. D/ : / 12/08/2018 21:58:22 Hussain Schwartz MD / zeina Interpreting Provider: Hussain Schwartz MD Chest CTA 12/08/18 21:20 IMPRESSION: 1. No evidence of pulmonary embolic disease. 2. Trace bilateral pleural effusions. Dependent bilateral lower lobe and right middle lobe opacification, likely atelectasis although infiltrate is not excluded. 3. 7.5 mm noncalcified right upper lobe pulmonary nodule. Imaging follow-up recommendations below. 4. 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 Differential considerations include a thymic cyst. Consider imaging follow-up in 6 months time. 5. Mild cardiomegaly with atherosclerotic coronary calcification. Elevated right heart pressures. D/ / 12/09/2018 07:25:30 Ariel Cronin MD / rogelio Interpreting Provider: Ariel Cronin MD Chest X-Ray 12/08/18 22:17 IMPRESSION: No acute cardiopulmonary disease. Central line tip in the proximal right atrium, 3 cm beyond the cavoatrial junction. Endotracheal tube tip 11 mm above the audrey, consider withdrawal 2 cm. D/ / Ariel Cronin MD / Ariel Cronin MD Interpreting Provider: Ariel Cronin MD Consult Discharge Plan - Plan Referrals: Julio Castillo, FRAME CATCHER [Primary Care Provider] - ___ (4) Anemia Qualifiers: Anemia type: unspecified type Qualified Code(s): D64.9 - Anemia, unspecified
[2018-12-09 09:20] LABS: VBG Ionized Calcium 1.11 mmol/L (1.15-1.35)
[2018-12-09] MEDS ORDERED: *HR* Heparin 5,000 UNIT/ML VIAL IVP ONE (09:31)
[2018-12-09] MEDS ORDERED: *HR* Heparin 5,000 UNIT/ML VIAL IVP PRN ×4 (09:31→14:11)
[2018-12-09 09:34] LABS: BUN/Creatinine Ratio 39 (6-26); Blood Urea Nitrogen 40 mg/dL (8-23); Calcium 7.1 mg/dL (8.6-10.3); Carbon Dioxide 16 mEq/L (23-29); Chloride 106 mEq/L (98-107); Glucose 209 mg/dL (70-105); Magnesium 2.1 mg/dL (1.6-2.6); Osmolality,Calculated 288 (280-300); Potassium 4.3 mEq/L (3.5-5.1); Sodium 131 mEq/L (136-145); eGFR For African Americans > 60 (> 60); eGFR For Non-African Americans 51 (> 60)
[2018-12-09 09:41] LABS: Troponin I 6.07 ng/mL (< 0.04)
[2018-12-09] MEDS ORDERED: Heparin 25,000 UNIT/250 ML D5W 25,000 UNIT/250 ML IV.SOLN IVC SCH ×2 (09:45→14:15)
[2018-12-09] MEDS ORDERED: Aspirin 81 MG TAB.CHEW PO SCH (09:45)
[2018-12-09 10:54] LABS: INR 1.1; Prothrombin Time 12.4 Seconds (9.4-12.1)
[2018-12-09 10:56] LABS: Heparin anti-factor XA UFH 0.03 IU/mL (0.30-0.70)
[2018-12-09] MEDS ORDERED: Calcium Gluconate 2,000 MG in 0.9 % Sodium Chloride 100 ML IVPB ONE (11:13)
--- NOTE | 2018-12-09 12:29 | Cardiology Consult Note ---
Date of Encounter: 12/09/18 Time of Encounter: 12:26 Assessment and Plan (1) Cardiac arrest Current Visit: Yes Status: Acute Preserved ejection fraction on echocardiogram, EKG currently showing no signs of ST elevation, suspicion of ST elevations during significant tachycardia after epinephrine likely rate related. Troponins mild to moderately elevated however not significant likely not a result of a primary ischemic event. And ELIDA to monitor and will follow-up along with pulmonary critical care as patient continues to be significantly anemic with respiratory insufficiency. No current plans for any cardiac procedures. Discussion w patient/family: The assessment and plan as outlined above was discussed with the patient and/or family members who expressed understanding and agreement. All questions were answered. Thank you for involving us in the care of your patient. Please call with any questions. History of Present Illness Consult date: 12/09/18 Consult reason: Arrest at outside facility Chief complaint: Sedated on vent History of present illness: Ms. Nixon is a 87 year old female with no significant history status post- surgery for hip fracture and while in rehabilitation patient was talking to family members and became unresponsive, CPR was initiated and V. fib arrest was shocked as per documentation. Patient was intubated and transferred to [facility] for further evaluation. Initial troponin 1.0 with a current peak of 6.0 possibly demand ischemia or secondary to CPR. EKG after epinephrine administration and significant tachycardia was suspicious for po ssible inferior ST elevations. Early members state patient prior to her unresponsiveness did not complain of chest pain and had no history of recent chest pain or exertional shortness of breath prior to her surgery. EKG prior to surgery was unremarkable. EKG currently also shows subtle borderline ST changes otherwise unremarkable. Unlikely ischemic event with [id number] troponins at this time. Echocardiogram obtained shows preserved ejection fraction with no regional wall motion abnormalities. Ischemic event highly unlikely as primary culprit. Patient noted to have severe anemia currently being worked up by pulmonary critical care at this time. No current plans for any cardiac procedures or interventions. Patient continues to be on pressor support and intubated. Past Med Surg Social Fam HX - Past Medical History Medical history: arthritis, diabetes, hypertension, thyroid disease Psychiatric history: no psych history - Past Surgical History Surgical History: orthopedic, other (Left hip pinning) - Social History Smoking Status: Never smoker Smokeless Tobacco Status: No Alcohol use: none Drug use: none - Family History Son Adopted: No Family Member Ethnicity: Non- Living Status: Still Living Hx Family Cardiac Disorders: No Hx Family Respiratory Disorders: No Hx Family Cancer: No Hx Family GI Disorders: No Hx Family Endocrine Disorder: No Hx Family Neuromuscular Disorders: No Hx Family Neurologic Disorders: No Hx Family HEENT Disorders: No Hx Family Autoimmune Disorders: No Medications and Allergies Aspirin [Ecotrin] 325 mg PO DAILY 12/03/18 [History] Atorvastatin [Lipitor] 40 mg PO HS 12/03/18 [History] Furosemide [Lasix] 20 mg PO DAILY 12/03/18 [History] Glimepiride [Amaryl] 4 mg PO DAILY 12/03/18 [History] Levothyroxine [Synthroid] 25 mcg PO 0630 12/03/18 [History] Meloxicam [Mobic] 7.5 mg PO DAILY 12/03/18 [History] Metoprolol Succinate [Toprol Xl] 50 mg PO DAILY 12/03/18 [History] Omeprazole [PriLOSEC] 20 mg PO DAILY 12/03/18 [History] Ramipril [Altace] 10 mg PO DAILY 12/03/18 [History] Triamterene/HCTZ 37.5/25mg [Dyazide] 1 tab PO DAILY 12/03/18 [History] Loratadine [Claritin] 1 tab PO DAILY 12/04/18 [History] Potassium Chloride [K-Tab ER] 8 meq PO DAILY 12/04/18 [History] HYDROcodone/Acet 5/325 mg [[place]onda 5-325 mg] 1 tab PO Q4H PRN 12/06/18 [History] Allergy/AdvReac Type Severity Reaction Status Date / Time celecoxib [From Celebrex] Allergy Hives Verified 12/04/18 10:49 codeine Allergy Hives Verified 12/04/18 10:49 All Systems Review: The remainder of the systems were reviewed and are negative Physical Examination Vital Signs, Last 4 Hours Temp Pulse Resp BP Pulse Ox 12/09/18 11:00 98.8 F 90 17 124/60 100 12/09/18 10:33 18 109/44 98 12/09/18 10:00 98.8 F 90 17 124/60 98 12/09/18 09:57 97.6 F 90 15 104/49 98 12/09/18 09:00 97.3 F L 85 16 87/37 99 General: Conversant, No Apparent Distress HEENT: Atraumatic, Normocephaly, Mucus Membranes Moist Neck: No JVD, Normal carotid pulses Cardiac: Reg Rate and Rhythm, Normal S1 and S2, No Murmur Lungs: Normal Breath Sounds, No Wheeze, Rales, Rhonchi Neuro: Alert and responsive, No focal deficits noted Abdomen: Soft, Non-Tender Skin: No rashes noted on visualized skin Musculoskeletal: No Chest Wall Tenderness Extremities: No Clubbing, No Cyanosis, No Edema, Normal Pulses Other: Sedated on the vent Results 12/09/18 05:00 12/09/18 08:58 Lab Results 12/08/18 12/08/18 12/08/18 21:27 21:27 21:27 WBC 9.0 Hgb 7.0 L Hct 22.7 L Plt Count 261 INR 1.1 Sodium 127 L Potassium 4.4 Chloride 100 Carbon Dioxide 15 L BUN 42 H Creatinine 1.04 Glucose 203 H Calcium 7.4 L Magnesium 2.3 Total Bilirubin 0.8 AST 548 H ALT 278 H Alkaline Phosphatase 84 Troponin I 0.98 H* TSH 1.258 12/09/18 12/09/18 12/09/18 01:16 05:00 05:00 WBC 10.1 Hgb 8.4 L Hct 26.4 L Plt Count 236 INR Sodium 129 L 130 L Potassium 4.1 Chloride 105 Carbon Dioxide 17 L BUN 45 H Creatinine 0.98 Glucose 132 H Calcium 7.6 L Magnesium Total Bilirubin 1.2 H AST 425 H ALT 230 H Alkaline Phosphatase 91 Troponin I 5.02 H* TSH 12/09/18 12/09/18 08:58 09:31 WBC Hgb Hct Plt Count INR 1.1 Sodium 131 L Potassium 4.3 Chloride 106 Carbon Dioxide 16 L BUN 40 H Creatinine 1.02 Glucose 209 H Calcium 7.1 L Magnesium 2.1 Total Bilirubin AST ALT Alkaline Phosphatase Troponin I 6.07 H* TSH Consult Discharge Plan - Plan Referrals: Julio Castillo, ENGINEER SPECIALIST [Primary Care Provider] -
[2018-12-09] MEDS: Norepinephrine 8 MG in 0.9 % Sodium Chloride 250 ML IVC SCH (13:10)
[2018-12-09] MEDS ORDERED: Aminoglycoside Consult 1 EACH MC ONE (13:10)
[2018-12-09] MEDS: Aspirin 81 MG TAB.CHEW PO SCH (14:46)
[2018-12-09 15:51] LABS: Hematocrit 29.7 % (35.3-44.9); Hemoglobin 9.6 g/dL (11.5-15.4); Mean Corpuscular HGB Conc 32.3 g/dL (31.6-35.5); Mean Corpuscular Hemoglobin 28.2 pg (28.0-33.3); Mean Corpuscular Volume 87.4 fL (83.0-100.0); Platelet Count 269 K/mcL (140-400); Red Cell Distribution Width 14.6 % (11.5-14.5); White Blood Count 10.1 K/mcL (4.3-11.1)
[2018-12-09 15:59] LABS: Heparin anti-factor XA UFH 0.14 IU/mL (0.30-0.70)
[2018-12-09 16:00] LABS: INR 1.2; Prothrombin Time 13.6 Seconds (9.4-12.1)
[2018-12-09] MEDS: Amiodarone Premix 360 MG/200 ML BAG IVC SCH (18:24)
[2018-12-09] MEDS: Chlorhexidine Rinse 15 ML MOUTHWASH MM SCH (20:25)
[2018-12-10] MEDS: Artificial Tears SOLN 15 ML BOTTLE BOTH EYES SCH ×5 (03:34→19:15)
[2018-12-10] MEDS: Insulin LISPRO 300 UNITS/3 ML VIAL SQ SCH ×5 (03:34→19:30)
[2018-12-10 04:00] LABS: Basophils % 0.1 %; Hematocrit 27.5 % (35.3-44.9); Hemoglobin 8.9 g/dL (11.5-15.4); Immature Granulocytes % 1.3 % (0-4); Lymphocytes # 1.1 K/mcL (0.6-4.6); Lymphocytes % 9.2 %; Mean Corpuscular HGB Conc 32.4 g/dL (31.6-35.5); Mean Corpuscular Hemoglobin 28.1 pg (28.0-33.3); Mean Corpuscular Volume 86.8 fL (83.0-100.0); Monocytes # 0.8 K/mcL (0.0-1.3); Monocytes % 6.4 %; Nucleated Red Blood Cells 0.2 /100 WBC (0); Platelet Count 263 K/mcL (140-400); Red Blood Count 3.17 M/mcL (3.82-4.97); Red Cell Distribution Width 15.1 % (11.5-14.5); White Blood Count 11.9 K/mcL (4.3-11.1)
[2018-12-10 04:07] LABS: Albumin 2.3 g/dL (3.5-5.7); Albumin/Globulin Ratio 0.9 (1.1-2.2); Bilirubin,Total 0.8 mg/dL (0.3-1.0); Calcium 7.9 mg/dL (8.6-10.3); Globulin 2.5 g/dL (2.4-3.5); Magnesium 2.3 mg/dL (1.6-2.6); Phosphorous 3.2 mg/dL (2.7-4.5); Potassium 4.3 mEq/L (3.5-5.1); Total Protein 4.8 g/dL (6.4-8.9)
[2018-12-10 04:10] LABS: Troponin I 7.02 ng/mL (< 0.04)
[2018-12-10 04:23] LABS: Neutrophils # 9.9 K/mcL (1.6-8.9)
[2018-12-10 04:41] LABS: ABG Base Excess -8 mEq/L (-2 to 3); ABG HCO3 17 mEq/L (21-27); ABG Oxygen Saturation 97 % (95-98); ABG PCO2 32 mmHg (35-45); ABG PH 7.34 pH Units (7.32-7.45); ABG PO2 92 mmHg (85-104); ABG TCO2 18 mEq/L (20-26); Blood Gas Modality ASSIST CONTROL; Blood Gas PEEP 5 cm H2O; Blood Gas VT 450 cc
[2018-12-10] MEDS: Hydrocortisone Sodium Succ 100 MG/2 ML VIAL IVP SCH ×3 (04:59→17:46)
[2018-12-10] MEDS: Pantoprazole 40 MG VIAL IVP SCH ×2 (04:59→17:46)
[2018-12-10 05:04] LABS: Burr Cells 3+ (Not Present); Ovalocytes 2+ (Not Present)
[2018-12-10 05:05] LABS: Platelet Estimate Normal (Normal); Tear Drop Cells 2+ (Not Present)
[2018-12-10] MEDS: Amiodarone Premix 360 MG/200 ML BAG IVC SCH ×2 (06:28→18:23)
[2018-12-10] MEDS: FentaNYL (PF) 1,000 MCG in 0.9 % Sodium Chloride 80 ML IVC SCH (07:16)
[2018-12-10] MEDS: 0.9 % Sodium Chloride 1,000 ML IVC SCH (07:17)
[2018-12-10] MEDS: Piperacillin/Tazobactam 3.375 GM in 0.9 % Sodium Chloride Mini Bag 100 ML IVPB SCH ×2 (07:18→16:43)
[2018-12-10] MEDS: Chlorhexidine Rinse 15 ML MOUTHWASH MM SCH ×2 (07:44→19:15)
[2018-12-10] MEDS: Aspirin 81 MG TAB.CHEW PO SCH (07:47)
--- NOTE | 2018-12-10 09:08 | Pulmonology Progress Note ---
<Vamsi Haywood - Last Filed: 12/10/18 11:41> Date of Encounter: 12/10/18 Time of Encounter: 09:07 Assessment and Plan (1) Acute respiratory failure with hypoxia Current Visit: Yes Status: Acute Acute respiratory failure with hypoxia likely due to cardiac arrest. Etiology of arrest is unclear, likely cardiac/ischemic. Was intubated/sedated. CTA was negative for PE. Recently hospitalized and had recent surgery, increased risk for hospital-acquired pneumonia. CXR shows stable bibasilar atelectasis. Plan: - Started on vancomycin and Zosyn on 12/08 - Pulmonary consultation for vent management - Stopped MIVFs, will diurese with 20mg IV lasix - Successful CPAP trial/SBT, extubated today - Will continue to monitor vitals and respiratory status (2) Cardiac arrest Current Visit: Yes Status: Acute Arrested at [facility] after recent hip surgery and was in rehabilitation. Initially in V. fib arrest. Patient was defibrillated once and ROSC achieved. Also in afib, started amiodarone drip. Has been NSR since. Targeted temp management was initiated, was rewarmed on 12/09 due to improving neuro status. Plan: - Cardiology consulted - Echo showed LVEF of 65%, mild LV diastolic dysfunction, moderate TR, no pulmonary hypertension - Trend troponins, elevation likely due to ischemia versus CPR versus epinephrine - Heparin SQ q12 for AC, DVT ppx - Cont stress dose steroids 50mg q6; likely taper over the next several days - On amiodarone gtt for rate control, previous afib - Continue monitoring with telemetry (3) Aspiration pneumonia due to inhalation of vomitus Current Visit: Yes Status: Acute Concern for aspiration PNA d/t [place] after cardiac arrest. Also concern for hospital-acquired PNA d/t recent surgery and rehab. Plan: - Cont zosyn - Stopped vancomycin - MRSA negative - Blood cultures pending - Extubated, off ventilator today (4) Acute blood loss anemia Current Visit: Yes Status: Acute Hgb of 7 upon admission. Transfused 1 unit PRBCs. Had some blood noted in NG tube. EGD showed gastric ulcer that was cauterized. Hgb has been stable. Plan: - Surgery consulted for EGD - Continue to monitor for bleeding - Transfuse if Hgb <7 - F/u FOBT - Protonix 40 mg IV BID for GI ppx (5) Elevated liver enzymes Current Visit: Yes Status: Acute Likely to d/t hypotension/hypoperfusion. Plan: - AST/ALT still elevated today - Will continue to monitor with LFTs - Liver ultrasound pending (6) NSTEMI (non-ST elevated myocardial infarction) Current Visit: Yes Status: Acute Elevated troponins during cardiac arrest. Likely demand, rate-related vs. CPR related damage. Plan: - Cont to trend troponins - Cards consulted - Recs that risk of heparin gtt outweighs the benefits, pawan with recent bleeding - Started on heparin SQ for DVT ppx, stopped heparin gtt (7) HTN (hypertension) Current Visit: Yes Status: Chronic Chronic issue. Plan: - Currently normotensive - Will cont miguel meds if need and once more stable Qualifiers: Hypertension type: essential hypertension Qualified Code(s): I10 - Essential (primary) hypertension (8) DM2 (diabetes mellitus, type 2) Current Visit: Yes Status: Chronic Chronic issue. Plan: - Accuchecks - SSI Qualifiers: Diabetes mellitus fpc insulin use: without fpc use Diabetes mellitus complication status: without complication Qualified Code(s): E11.9 - Type 2 diabetes mellitus without complications (9) Hypothyroidism Current Visit: Yes Status: Chronic Chronic issue. Plan: - Verify and cont home meds when stable Qualifiers: Hypothyroidism type: acquired Qualified Code(s): E03.9 - Hypothyroidism, unspecified (10) DVT prophylaxis Current Visit: Yes Status: Acute DVT PPX: EPCDs, hep SQ Analgesia: none Sedation: none SBT: completed Glycemic control: SSI Activity: as tolerated Fluids: none Electrolytes: replete as necessary Nutrition: CLD GI ppx: PPI Lines: 1x R IJ CVC, Consults: pulm, cardio, surgery Code: FULL Dispo: ICU Subjective Principal diagnosis: Cardiac arrest Interval history: Patient was seen and examined at bedside. No acute events overnight. Currently intubated and sedated. Does not appear to be in any discomfort or pain. Patient is responding to commands. Completed spontaneous breathing trial today after decreasing analgesia and sedation. Extubated this morning. Objective PUL Vital signs: Last Vital Signs Temp 97.4 F L 12/10/18 07:00 Pulse 65 12/10/18 08:00 Resp 17 12/10/18 08:00 BP 127/68 12/10/18 08:00 Pulse Ox 97 12/10/18 08:00 General appearance: no acute distress Eyes: nonicteric ENT: oropharynx moist Effort: normal Auscultation: bilateral: clear Cardiovascular: regular rate and rhythm Gastrointestinal: normoactive bowel sounds, non-distended Integumentary: normal Extremities: no cyanosis, no edema, no clubbing Musculoskeletal: no deformities, ROM normal unable to assess due to mental status Ventilator Settings Ventilator Settings: Ventilator Settings, Last 8 Hours Ventilator Tidal Volume 450 Setting Ventilator Tidal Volume 450 Setting Ventilator Tidal Volume 450 Setting Ventilator Tidal Volume 450 Setting Ventilator Tidal Volume 450 Setting Ventilator Tidal Volume 450 Setting Ventilator Tidal Volume 450 Setting Ventilator Tidal Volume 450 Setting Ventilator Tidal Volume 450 Setting Ventilator Tidal Volume 450 Setting Ventilator Tidal Volume 450 Setting Ventilator Tidal Volume 450 Setting Ventilator Respiratory Rate 14 Setting Ventilator Respiratory Rate 14 Setting Ventilator Respiratory Rate 14 Setting Ventilator Respiratory Rate 14 Setting Ventilator Respiratory Rate 14 Setting Ventilator Respiratory Rate 14 Setting Ventilator Respiratory Rate 14 Setting Ventilator Respiratory Rate 14 Setting Ventilator Respiratory Rate 14 Setting Ventilator Respiratory Rate 14 Setting Ventilator Respiratory Rate 14 Setting Ventilator Respiratory Rate 14 Setting Actual Respiratory Rate 18 Actual Respiratory Rate 18 Actual Respiratory Rate 18 Actual Respiratory Rate 17 Actual Respiratory Rate 17 Actual Respiratory Rate 16 Actual Respiratory Rate 14 Actual Respiratory Rate 14 Actual Respiratory Rate 14 Actual Respiratory Rate 17 Actual Respiratory Rate 15 Positive End Expiratory 5 Pressure Positive End Expiratory 5 Pressure Positive End Expiratory 5 Pressure Positive End Expiratory 5 Pressure Positive End Expiratory 5 Pressure Positive End Expiratory 5 Pressure Positive End Expiratory 5 Pressure Positive End Expiratory 5 Pressure Positive End Expiratory 5 Pressure Positive End Expiratory 5 Pressure Positive End Expiratory 5 Pressure Positive End Expiratory 5 Pressure Peak Inspiratory Airway 25 Pressure Peak Inspiratory Airway 25 Pressure Peak Inspiratory Airway 25 Pressure Peak Inspiratory Airway 21 Pressure Peak Inspiratory Airway 21 Pressure Peak Inspiratory Airway 21 Pressure Peak Inspiratory Airway 21 Pressure Peak Inspiratory Airway 22 Pressure Peak Inspiratory Airway 25 Pressure Peak Inspiratory Airway 22 Pressure Peak Inspiratory Airway 19 Pressure Results - Laboratory Findings CBC and BMP: 12/10/18 09:10 12/10/18 03:29 ABG ABG pH 7.34 pH Units (7.32-7.45) 12/10/18 04:38 ABG pCO2 32 mmHg (35-45) L 12/10/18 04:38 ABG pO2 92 mmHg (85-104) 12/10/18 04:38 ABG O2 Saturation 97 % (95-98) 12/10/18 04:38 PT/INR, D-dimer PT 13.6 Seconds (9.4-12.1) H 12/09/18 15:35 Abnormal lab findings: Abnormal lab results WBC 11.9 K/mcL (4.3-11.1) H 12/10/18 03:29 RBC 3.17 M/mcL (3.82-4.97) L 12/10/18 03:29 Hgb 8.9 g/dL (11.5-15.4) L 12/10/18 03:29 Hct 27.5 % (35.3-44.9) L 12/10/18 03:29 MCH 27.7 pg (28.0-33.3) L 12/09/18 05:00 MCHC 30.8 g/dL (31.6-35.5) L 12/08/18 21:27 RDW 15.1 % (11.5-14.5) H 12/10/18 03:29 Neutrophils # 9.9 K/mcL (1.6-8.9) H 12/10/18 03:29 Nucleated RBCs/100 WBC 0.2 /100 WBC (0) H 12/10/18 03:29 Polychromasia 1+ (Not Present) A 12/08/18 21:27 Tear Drop Cells 2+ (Not Present) A 12/10/18 03:29 Ovalocytes 2+ (Not Present) A 12/10/18 03:29 Anna Cells 3+ (Not Present) A 12/10/18 03:29 Acanthocytes (Spur) 1+ (Not Present) A 12/08/18 21:27 Retic Hgb Equivalent 28.1 pg (28.61-36.33) L 12/08/18 21:27 PT 13.6 Seconds (9.4-12.1) H 12/09/18 15:35 Heparin Anti-Xa, Unfract 0.14 IU/mL (0.30-0.70) L 12/09/18 15:35 ABG pCO2 32 mmHg (35-45) L 12/10/18 04:38 ABG pO2 121 mmHg (85-104) H 12/09/18 05:15 ABG HCO3 17 mEq/L (21-27) L 12/10/18 04:38 ABG Total CO2 18 mEq/L (20-26) L 12/10/18 04:38 ABG O2 Saturation 99 % (95-98) H 12/09/18 05:15 ABG Base Excess -8 mEq/L (-2 to 3) L 12/10/18 04:38 Sodium 132 mEq/L (136-145) L 12/10/18 03:29 Chloride 109 mEq/L (98-107) H 12/10/18 03:29 Carbon Dioxide 18 mEq/L (23-29) L 12/10/18 03:29 BUN 46 mg/dL (8-23) H 12/10/18 03:29 Creatinine 1.22 mg/dL (0.60-1.20) H 12/10/18 03:29 Est GFR ( Amer) 51 (> 60) L 12/10/18 03:29 Est GFR (Non-Af Amer) 42 (> 60) L 12/10/18 03:29 BUN/Creatinine Ratio 38 (6-26) H 12/10/18 03:29 Glucose 233 mg/dL (70-105) H 12/10/18 03:29 POC Glucose 220 mg/dL (70-99) H 12/09/18 23:38 Lactic Acid 3.4 mmol/L (0.5-2.2) H 12/08/18 21:27 Calcium 7.9 mg/dL (8.6-10.3) L 12/10/18 03:29 Venous Ioniz Calcium 1.11 mmol/L (1.15-1.35) L 12/09/18 09:14 Total Bilirubin 1.2 mg/dL (0.3-1.0) H 12/09/18 05:00 AST 427 Units/L (13-39) H 12/10/18 03:29 ALT 428 Units/L (7-52) H 12/10/18 03:29 Alkaline Phosphatase 134 Units/L (34-104) H 12/10/18 03:29 Troponin I 7.02 ng/mL (< 0.04) H* 12/10/18 03:29 Serum Total Protein 4.8 g/dL (6.4-8.9) L 12/10/18 03:29 Albumin 2.3 g/dL (3.5-5.7) L 12/10/18 03:29 Albumin/Globulin Ratio 0.9 (1.1-2.2) L 12/10/18 03:29 Crossmatch See Detail 12/08/18 21:27 - Microbiology Findings Microbiology Findings: Microbiology, Last 48 Hours 12/09/18 00:48 Blood Culture - Preliminary Peripheral Venipuncture Culture is incubating and being continuously monitored for growth. Final report to follow. - Clinical Findings Intake & Output: Intake & Output 12/09/18 12/10/18 12/10/18 23:59 07:59 15:59 Intake Total 2069.5 / 7104.5 1329.2 / 1329.2 Output Total 100 / 700 375 / 375 Balance 1969.5 / 6404.5 954.2 / 954.2 Weight 86.3 kg Consult Discharge Plan - Plan Referrals: Julio Castillo, SAILING MASTER [Primary Care Provider] - <Rosalie Goldsmith - Last Filed: 12/10/18 23:08> Date of Encounter: 12/10/18 Objective PUL Vital signs: Last Vital Signs Temp 98.4 F 12/10/18 19:16 Pulse 62 12/10/18 23:00 Resp 16 12/10/18 23:00 BP 98/52 12/10/18 23:00 Pulse Ox 97 12/10/18 23:00 Results - Laboratory Findings CBC and BMP: 12/10/18 09:10 12/10/18 03:29 ABG ABG pH 7.34 pH Units (7.32-7.45) 12/10/18 04:38 ABG pCO2 32 mmHg (35-45) L 12/10/18 04:38 ABG pO2 92 mmHg (85-104) 12/10/18 04:38 ABG O2 Saturation 97 % (95-98) 12/10/18 04:38 PT/INR, D-dimer PT 13.6 Seconds (9.4-12.1) H 12/09/18 15:35 Abnormal lab findings: Abnormal lab results WBC 11.9 K/mcL (4.3-11.1) H 12/10/18 03:29 RBC 3.17 M/mcL (3.82-4.97) L 12/10/18 03:29 Hgb 9.2 g/dL (11.5-15.4) L 12/10/18 09:10 Hct 28.2 % (35.3-44.9) L 12/10/18 09:10 MCH 27.7 pg (28.0-33.3) L 12/09/18 05:00 MCHC 30.8 g/dL (31.6-35.5) L 12/08/18 21:27 RDW 15.1 % (11.5-14.5) H 12/10/18 03:29 Neutrophils # 9.9 K/mcL (1.6-8.9) H 12/10/18 03:29 Nucleated RBCs/100 WBC 0.2 /100 WBC (0) H 12/10/18 03:29 Polychromasia 1+ (Not Present) A 12/08/18 21:27 Tear Drop Cells 2+ (Not Present) A 12/10/18 03:29 Ovalocytes 2+ (Not Present) A 12/10/18 03:29 Anna Cells 3+ (Not Present) A 12/10/18 03:29 Acanthocytes (Spur) 1+ (Not Present) A 12/08/18 21:27 Retic Hgb Equivalent 28.1 pg (28.61-36.33) L 12/08/18 21:27 PT 13.6 Seconds (9.4-12.1) H 12/09/18 15:35 Heparin Anti-Xa, Unfract 0.14 IU/mL (0.30-0.70) L 12/09/18 15:35 ABG pCO2 32 mmHg (35-45) L 12/10/18 04:38 ABG pO2 121 mmHg (85-104) H 12/09/18 05:15 ABG HCO3 17 mEq/L (21-27) L 12/10/18 04:38 ABG Total CO2 18 mEq/L (20-26) L 12/10/18 04:38 ABG O2 Saturation 99 % (95-98) H 12/09/18 05:15 ABG Base Excess -8 mEq/L (-2 to 3) L 12/10/18 04:38 Sodium 132 mEq/L (136-145) L 12/10/18 03:29 Chloride 109 mEq/L (98-107) H 12/10/18 03:29 Carbon Dioxide 18 mEq/L (23-29) L 12/10/18 03:29 BUN 46 mg/dL (8-23) H 12/10/18 03:29 Creatinine 1.22 mg/dL (0.60-1.20) H 12/10/18 03:29 Est GFR ( Amer) 51 (> 60) L 12/10/18 03:29 Est GFR (Non-Af Amer) 42 (> 60) L 12/10/18 03:29 BUN/Creatinine Ratio 38 (6-26) H 12/10/18 03:29 Glucose 233 mg/dL (70-105) H 12/10/18 03:29 POC Glucose 220 mg/dL (70-99) H 12/09/18 23:38 Lactic Acid 3.4 mmol/L (0.5-2.2) H 12/08/18 21:27 Calcium 7.9 mg/dL (8.6-10.3) L 12/10/18 03:29 Venous Ioniz Calcium 1.11 mmol/L (1.15-1.35) L 12/09/18 09:14 Total Bilirubin 1.2 mg/dL (0.3-1.0) H 12/09/18 05:00 AST 427 Units/L (13-39) H 12/10/18 03:29 ALT 428 Units/L (7-52) H 12/10/18 03:29 Alkaline Phosphatase 134 Units/L (34-104) H 12/10/18 03:29 Troponin I 7.02 ng/mL (< 0.04) H* 12/10/18 03:29 Serum Total Protein 4.8 g/dL (6.4-8.9) L 12/10/18 03:29 Albumin 2.3 g/dL (3.5-5.7) L 12/10/18 03:29 Albumin/Globulin Ratio 0.9 (1.1-2.2) L 12/10/18 03:29 Crossmatch See Detail 12/08/18 21:27 - Microbiology Findings Microbiology Findings: Microbiology, Last 48 Hours 12/09/18 00:48 Blood Culture - Preliminary Peripheral Venipuncture Culture is incubating and being continuously monitored for growth. Final report to follow. - Clinical Findings Intake & Output: Intake & Output 12/10/18 12/10/18 12/10/18 07:59 15:59 23:59 Intake Total 1329.2 / 2411.2 542 / 2411.2 540 / 2411.2 Output Total 375 / 1375 800 / 1375 200 / 1375 Balance 954.2 / 1036.2 -258 / 1036.2 340 / 1036.2 Weight 86.3 kg - Attending Attestation I saw and evaluated this patient and my medical decision-making was reviewed with the Resident Physician. I agree with the documented findings, disposition and treatment plan as described except to the extent set forth below. We independently had [id number] contact with the patient I spent 45 minutes of Critical Care time with this patient. It involved decision making of high complexity to assess, manipulate, and support vital organ system failure and/or to prevent further life threatening deterioration of the patient's condition. The time involved in the performance of separately reportable procedures was not counted toward critical care time. Patient seen and examined at bedside Labs, radiology, chart personally reviewed. Management was reviewed during multidisciplinary critical care rounds. STEM MAKER: Patient is slightly lethargic but awake and follows commands the patient passes the spontaneous breathing trial will extubate her to nasal cannula. Pulm: Patient has acceptable oxygenation and ventilation patient has background of diastolic heart failure the CT chest shows bilateral pleural effusion signs of hydrostatic pulmonary edema will do gentle diuresis after he is stable off vasopressors. Cards: Patient developed cardiac arrest V. fib arrest with troponin leak to up to 7 echocardiogram shows diastolic heart failure no regional wall motion of now. Has no evidence of ischemic cardiomyopathy systolic function is preserved cardiology was consulted gave opinion that this can be a type II MIs supply demand mismatch no indication for cardiac catheterization. FEN-GI: Advance diet as tolerated once extubated Renal: Labs and output were reviewed ID: To cover with broad-spectrum antibiotics for aspiration. Heme/Onc: Labs Reviewed Endo: Glucose Monitored Integ/MSK: Skin Care per routine ICU Nursing Protocol to prevent ulcers. Lines: All lines examined without evidence of infection : Dispo: critically ill high chance of respiratory decline. CODE: Full code patient was DNR CCA before the intubation will need to speak with the family. Before we change her CODE STATUS
[2018-12-10 09:23] LABS: Hematocrit 28.2 % (35.3-44.9); Hemoglobin 9.2 g/dL (11.5-15.4)
--- NOTE | 2018-12-10 10:37 | Electrocardiograph Report ---
[address] [address] Test Date: 2018-12-08 Pat Name: Zayda Nixon Department: 109 Room: [facility] Gender: F Decorating Instructor: : 1930 Requested By: Farzana Mitchell Order Number: [id number] Reading MD: Rick Louie Measurements Intervals Armstrong Rate: 81 P: 73 DE: 192 QRS: 1 QRSD: 105 T: 23 QT: 374 QTc: 411 Interpretive Statements SINUS RHYTHM Electronically Signed On 12-10-2018 10:35:46 EDT by Rick Louie
--- NOTE | 2018-12-10 10:57 | Cardiology Progress Note ---
Date of Encounter: 12/10/18 Time of Encounter: 09:00 Assessment and Plan (1) Cardiac arrest Current Visit: Yes Status: Acute Reported vfib arrest at [facility] s/p x3 rounds of CPR, epi, defibrillation. Etiology remains unclear however do not suspect ischemic as EF is preserved with normal wall motion. ECG without acute ischemic changes. s/p 2 units of PRBC, on heparin gtt. Discussed with Dr. Louie; will d/c heparin gtt as risk outweighs benefit--has now infused for nearly 24 hours. Will start heparin SC for DVT prophylaxis. Patient is not a candidate for Cardiac rehab. Patient was reportedly DNRCC-A prior to event. Continue conservative medical therapy. Continue asa, statin, BB. (2) NSTEMI (non-ST elevated myocardial infarction) Current Visit: Yes Status: Acute Plan as above. Discussion w patient/family: The assessment and plan as outlined above was discussed with the patient and/or family members who expressed understanding and agreement. All questions were answered. Thank you for involving us in the care of your patient. Please call with any questions. The patient will be discussed and reviewed with Dr. Louie; changes to be made accordingly. Subjective Principal diagnosis: Cardiac arrest Interval history: Seen and examined. Patient intubated/sedated. On CPAP trial this AM. Follows simple verbal commands (squeezing hands). Objective Vital Signs, Last 4 Hours Temp Pulse Resp BP Pulse Ox 12/10/18 10:00 65 14 126/64 96 12/10/18 09:28 10 12/10/18 09:00 68 11 117/70 96 12/10/18 08:00 65 17 127/68 97 12/10/18 07:22 17 110/57 97 12/10/18 07:00 97.4 F L 65 17 110/57 97 General: Other (intubated/sedated) HEENT: Atraumatic, Normocephaly Cardiac: Reg Rate and Rhythm, Normal S1 and S2 Lungs: Other (coarse anterior only) Neuro: Other (sedated) Abdomen: Soft Skin: No rashes noted on visualized skin Extremities: Other (generalized, edema noted to bilateral hands, feet) Results 12/10/18 09:10 12/10/18 03:29 Lab Results 12/09/18 12/09/18 12/09/18 09:31 15:35 15:35 WBC 10.1 Hgb 9.6 L Hct 29.7 L Plt Count 269 INR 1.1 1.2 Sodium Potassium Chloride Carbon Dioxide BUN Creatinine Glucose Calcium Magnesium Total Bilirubin AST ALT Alkaline Phosphatase Troponin I 12/10/18 12/10/18 12/10/18 03:29 03:29 09:10 WBC 11.9 H Hgb 8.9 L 9.2 L Hct 27.5 L 28.2 L Plt Count 263 INR Sodium 132 L Potassium 4.3 Chloride 109 H Carbon Dioxide 18 L BUN 46 H Creatinine 1.22 H Glucose 233 H Calcium 7.9 L Magnesium 2.3 Total Bilirubin 0.8 AST 427 H ALT 428 H Alkaline Phosphatase 134 H Troponin I 7.02 H* Active Medications Acetaminophen (Tylenol Susp) 650 mg GTUBE Q6HR [facility] Stop: 06/10/19 00:01 Last Admin: 12/10/18 04:59 Dose: 650 mg Documented by: Artificial Tears (Akwa Tears) 1 drop BOTH EYES Q2HR PRN; Protocol PRN Reason: Dry Eyes Stop: 06/09/19 20:30 Artificial Tears (Akwa Tears) 1 drop BOTH EYES Q4HR [facility]; Protocol Stop: 06/10/19 00:01 Last Admin: 12/10/18 07:19 Dose: 1 drop Documented by: Aspirin (Aspirin) 81 mg PO DAILY [facility] Stop: 06/10/19 14:13 Last Admin: 12/10/18 07:47 Dose: 81 mg Documented by: Chlorhexidine Gluconate (Chlorhexidine Rinse) 15 ml MM BID [facility] Stop: 06/09/19 21:01 Last Admin: 12/10/18 07:44 Dose: 15 ml Documented by: Dextrose/Water (Dextrose 50% (Syg)) 25 ml IVP AD PRN PRN Reason: Hypoglycemia Stop: 06/09/19 23:10 Glucagon (Glucagen) 1 mg IM ONCE PRN PRN Reason: Hypoglycemia Stop: 06/09/19 23:10 Glucose (Gluctose) 15 gm PO ONCE PRN PRN Reason: Hypoglycemia Stop: 06/09/19 23:10 Glucose (Gluctose) 30 gm PO ONCE PRN PRN Reason: Hypoglycemia Stop: 06/09/19 23:10 Heparin Sodium (Porcine) (Heparin) 5,000 unit SQ Q12HCO [facility]; Protocol Stop: 06/11/19 18:01 Hydrocortisone Sodium Succinate (Solu-Cortef) 50 mg IVP Q6HR [facility] Stop: 06/11/19 12:01 Fentanyl Citrate 1,000 mcg/ (Sodium Chloride) 100 mls @ 5 mls/hr IVC CONT [facility]; Protocol Stop: 06/09/19 20:31 Last Titration: 12/10/18 09:00 Dose: 50 mcg/hr, 5 mls/hr Documented by: Piperacillin Sod/Tazobactam (Sod 3.375 gm/ Sodium Chloride) 100 mls @ 25 mls/hr IVPB Q8HR [facility] Stop: 06/10/19 00:01 Last Admin: 12/10/18 07:18 Dose: 25 mls/hr Documented by: Dextrose (Dextrose 5%) 1,000 mls @ 100 mls/hr IVC .Q10H PRN PRN Reason: HYPOGLYCEMIA Stop: 06/09/19 23:10 Propofol (Diprivan) 1,000 mg in 100 mls @ 2.4 mls/hr IVC .Q24H [facility]; Protocol Stop: 06/10/19 06:16 Last Admin: 12/10/18 04:09 Dose: Not Given Documented by: Amiodarone HCl/Dextrose (Amiodarone Drip Premix 360mg/200ml) 360 mg in 200 mls @ 16.667 mls/hr IVC CONT [facility] Stop: 06/10/19 14:01 Last Admin: 12/10/18 06:28 Dose: 0.5 mg/min, 16.7 mls/hr Documented by: Norepinephrine Bitartrate 8 mg (/ Sodium Chloride) 258 mls @ 38.7 mls/hr IVC CONT [facility]; Protocol Stop: 06/10/19 11:21 Last Titration: 12/10/18 09:30 Dose: 0 mcg/min, 0 mls/hr Documented by: Insulin Human Lispro (Humalog) 0 units SQ Q4HR [facility]; Protocol Stop: 06/10/19 16:01 Last Admin: 12/10/18 07:19 Dose: 4 units Documented by: Naloxone HCl (Narcan) 0.4 mg IVP Q2MPRN PRN PRN Reason: SEE COMMENTS Stop: 06/09/19 20:25 Pantoprazole Sodium (Protonix) 40 mg IVP Q12HR [facility] Stop: 06/10/19 06:01 Last Admin: 12/10/18 04:59 Dose: 40 mg Documented by: - Imaging and Cardiology Echo: report reviewed Other Results: x1 episoe of NSVT, 4 beats - EKG Interpretation EKG results cardiology: personally reviewed Consult Discharge Plan - Plan Referrals: Julio Castillo, ANGELO [Primary Care Provider] -
[2018-12-10] MEDS: Norepinephrine 8 MG in 0.9 % Sodium Chloride 250 ML IVC SCH (11:59)
[2018-12-10] MEDS ORDERED: Furosemide 20 MG/2 ML VIAL IVP ONE (13:30)
--- NOTE | 2018-12-10 15:46 | Electrocardiograph Report ---
[address] [address] Test Date: 2018-12-09 Pat Name: Zayda Nixon Department: 109 Room: [facility] Gender: F National Sales Consultant: : [id number] Requested By: Farzana Mitchell Order Number: [id number] Reading MD: Rick Louie Measurements Intervals [place] Rate: 98 P: 112 MS: 153 QRS: -8 QRSD: 85 T: 61 QT: 337 QTc: 393 Interpretive Statements SINUS RHYTHM WITH FREQUENT VENTRICULAR PREMATURE COMPLEXES LOW QRS VOLTAGE IN PRECORDIAL LEADS NONSPECIFIC ST-T CHANGES Electronically Signed On 12-10-2018 15:44:57 EDT by Rick Louie
--- NOTE | 2018-12-10 17:04 | AcuteCareSurgery Progress Note ---
Date of Encounter: 12/10/18 Time of Encounter: 07:45 - Assessment and Plan (1) Gastric ulcer Current Visit: Yes Status: Acute H&H stable. S/P EGD with cauterization. Surgery will sign off. Please, reconsult as needed. Thank you for allowing us to participate in this patient's care. 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 S/P NC. POD#1 EGD. EGD reveals gastric ulcer. Ulcer is cauterized. Objective Vital Signs - Last 8 Hours Temp Pulse Resp BP Pulse Ox 12/10/18 16:00 69 22 143/68 97 12/10/18 15:00 71 23 136/66 97 12/10/18 14:00 72 22 124/65 97 12/10/18 13:00 70 16 121/66 97 12/10/18 12:00 70 18 122/63 96 12/10/18 11:12 97.6 F 12/10/18 11:00 65 16 116/70 97 12/10/18 10:00 65 14 126/64 96 12/10/18 09:28 10 Intake and Output 12/10/18 12/10/18 12/10/18 07:59 15:59 23:59 Intake Total 1329.2 / 1871.2 542 / 1871.2 Output Total 375 / 1175 800 / 1175 Balance 954.2 / 696.2 -258 / 696.2 Intake: IV Fluids 1329.2 / 1861.2 532 / 1861.2 0.9 % Sodium Chloride 1,000 ML 895 / 1195 300 / 1195 @ 100 mls/hr IVC .Q10H [facility] Rx#: [id number] Amiodarone Drip Premix 360mg/ 133.2 / 133.2 200mL 360 mg In 200 ml @ 0.5 MG /MIN 16.667 mls/hr IVC CONT [facility] Rx#:[id number] FentaNYL (PF) 1,000 MCG In 0.9 100.0 / 115.0 15 / 115.0 % Sodium Chloride 80 ML @ 50 MCG/HR 5 mls/hr IVC CONT [facility] Rx #:[id number] Heparin 25,000 UNIT/250 ML D5W 51.5 / 128.5 77 / 128.5 25,000 unit In 250 ml @ 12 UNIT /KG/HR 9.6 mls/hr IVC .Q24H [facility] Rx#:[id number] Levophed 8 MG In 0.9 % Sodium 35.6 / 75.6 40 / 75.6 Chloride 250 ML @ 20 MCG/MIN 38 .7 mls/hr IVC CONT [facility] Rx#: [id number] Diprivan 1,000 mg In 100 ml @ 5 13.9 / 13.9 MCG/KG/MIN 2.4 mls/hr IVC . Q24H [facility] Rx#:[id number] Zosyn 3.375 GM In 0.9 % Sodium 100 / 200 100 / 200 Chloride (Mini-Bag +) 100 ML @ 25 mls/hr IVPB Q8HR [facility] Rx#: [id number] Oral 10 10 Output: Catheter 275 / 1075 800 / 1075 Gastric Drainage 100 / 100 Other: Weight 86.3 kg Blood Glucose* 198 145 Patient Weight 12/10/18 23:59 Weight 86.3 kg - General physical appearance other (sedated on vent) - ENT no congestion, dry mucosa - Neck Neck exam: trachea midline - Respiratory other (decreased BS bilaterally) - Cardiovascular Cardiovascular exam: Present: RRR (low BP) - Abdomen Abdomen: Present: bowel sounds present, soft, non tender Additional Comments: NGT without bloody drainage - Neurologic other (sedated) - Labs 12/10/18 09:10 12/10/18 03:29 Diabetes panel 12/10/18 Range/Units 03:29 Sodium 132 L (136-145) mEq/L Potassium 4.3 (3.5-5.1) mEq/L Chloride 109 H (98-107) mEq/L Carbon Dioxide 18 L (23-29) mEq/L BUN 46 H (8-23) mg/dL Creatinine 1.22 H (0.60-1.20) mg/dL Glucose 233 H (70-105) mg/dL Calcium 7.9 L (8.6-10.3) mg/dL AST 427 H (13-39) Units/L ALT 428 H (7-52) Units/L Alkaline Phosphatase 134 H (34-104) Units/L Albumin 2.3 L (3.5-5.7) g/dL Calcium panel 12/10/18 Range/Units 03:29 Calcium 7.9 L (8.6-10.3) mg/dL Phosphorus 3.2 (2.7-4.5) mg/dL Albumin 2.3 L (3.5-5.7) g/dL Pituitary panel 12/10/18 Range/Units 03:29 Sodium 132 L (136-145) mEq/L Potassium 4.3 (3.5-5.1) mEq/L Chloride 109 H (98-107) mEq/L Carbon Dioxide 18 L (23-29) mEq/L BUN 46 H (8-23) mg/dL Creatinine 1.22 H (0.60-1.20) mg/dL Glucose 233 H (70-105) mg/dL Calcium 7.9 L (8.6-10.3) mg/dL Adrenal panel 12/10/18 Range/Units 03:29 Sodium 132 L (136-145) mEq/L Potassium 4.3 (3.5-5.1) mEq/L Chloride 109 H (98-107) mEq/L Carbon Dioxide 18 L (23-29) mEq/L BUN 46 H (8-23) mg/dL Creatinine 1.22 H (0.60-1.20) mg/dL Glucose 233 H (70-105) mg/dL Calcium 7.9 L (8.6-10.3) mg/dL Total Bilirubin 0.8 (0.3-1.0) mg/dL AST 427 H (13-39) Units/L ALT 428 H (7-52) Units/L Alkaline Phosphatase 134 H (34-104) Units/L Albumin 2.3 L (3.5-5.7) g/dL Consult Discharge Plan - Plan Referrals: Julio Castillo, ANGELO [Primary Care Provider] -
[2018-12-10] MEDS: *HR* Heparin 5,000 UNIT/ML VIAL SQ SCH (17:46)
[2018-12-11] MEDS: Insulin LISPRO 300 UNITS/3 ML VIAL SQ SCH ×6 (00:19→20:04)
[2018-12-11] MEDS: Piperacillin/Tazobactam 3.375 GM in 0.9 % Sodium Chloride Mini Bag 100 ML IVPB SCH ×3 (00:19→17:48)
[2018-12-11 04:43] LABS: Basophils % 0.1 %; Hematocrit 25.8 % (35.3-44.9); Hemoglobin 8.5 g/dL (11.5-15.4); Lymphocytes # 1.4 K/mcL (0.6-4.6); Lymphocytes % 8.9 %; Mean Corpuscular HGB Conc 32.9 g/dL (31.6-35.5); Mean Corpuscular Hemoglobin 28.1 pg (28.0-33.3); Mean Corpuscular Volume 85.1 fL (83.0-100.0); Mean Platelet Volume 9.6 fL (9.4-12.4); Monocytes # 1.1 K/mcL (0.0-1.3); Monocytes % 6.9 %; Neutrophils # 13.3 K/mcL (1.6-8.9); Platelet Count 244 K/mcL (140-400); Red Blood Count 3.03 M/mcL (3.82-4.97); Red Cell Distribution Width 15.4 % (11.5-14.5); Segmented Neutrophils % 82.1 %; White Blood Count 16.2 K/mcL (4.3-11.1)
[2018-12-11 05:12] LABS: Albumin 2.3 g/dL (3.5-5.7); Bilirubin,Total 0.5 mg/dL (0.3-1.0); Globulin 2.4 g/dL (2.4-3.5); Magnesium 2.2 mg/dL (1.6-2.6); Phosphorous 2.8 mg/dL (2.7-4.5); Potassium 3.4 mEq/L (3.5-5.1); Total Protein 4.7 g/dL (6.4-8.9); Troponin I 5.42 ng/mL (< 0.04)
[2018-12-11] MEDS: *HR* Heparin 5,000 UNIT/ML VIAL SQ SCH ×2 (06:11→17:52)
[2018-12-11] MEDS: Pantoprazole 40 MG VIAL IVP SCH ×2 (06:11→17:48)
[2018-12-11] MEDS: Amiodarone Premix 360 MG/200 ML BAG IVC SCH (06:11)
[2018-12-11] MEDS ORDERED: Potassium Chloride Elixir 20 MEQ/15 ML UDC PO ONE (07:34)
--- NOTE | 2018-12-11 07:35 | Pulmonology Progress Note ---
<Vamsi Haywood - Last Filed: 12/11/18 11:04> Date of Encounter: 12/11/18 Time of Encounter: 07:35 Assessment and Plan (1) Acute respiratory failure with hypoxia Current Visit: Yes Status: Acute Acute respiratory failure with hypoxia likely due to cardiac arrest. Etiology of arrest is unclear, likely cardiac/ischemic. Was intubated/sedated. CTA was negative for PE. Recently hospitalized after surgery/rehab, increased risk for hospital-acquired pneumonia. CXR shows stable bibasilar atelectasis. Plan: - Started on vancomycin and Zosyn on 12/08; stopped vanc - Pulmonary consultation for vent management (now extubated) - Stopped MIVFs, will diurese with 20mg IV lasix - Successful CPAP trial/SBT, extubated today - Will continue to monitor vitals and respiratory status (2) Cardiac arrest Current Visit: Yes Status: Acute Arrested at [place] after recent hip surgery and was in rehabilitation. Initially in V. fib arrest. Patient was defibrillated once and ROSC achieved. Also in afib, started amiodarone drip. Has been NSR since. Targeted temp management was initiated, was rewarmed on 12/09 due to improving neuro status. Plan: - Cardiology consulted - Echo showed LVEF of 65%, mild LV diastolic dysfunction, moderate TR, no pulmonary hypertension - Trend troponins, elevation likely due to ischemia versus CPR versus epinephrine - Heparin SQ q12 for AC, DVT ppx - Cont stress dose steroids 50mg q6; likely taper over the next several days - On amiodarone gtt for rate control, previous afib; per cards recs, may change to PO amiodarone - Continue monitoring with telemetry (3) Aspiration pneumonia due to inhalation of vomitus Current Visit: Yes Status: Acute Concern for aspiration PNA d/t [place] after cardiac arrest. Also concern for hospital-acquired PNA d/t recent surgery and rehab. Plan: - Cont zosyn - Stopped vancomycin - MRSA negative - Blood cultures pending - Extubated, off ventilator today (4) Acute blood loss anemia Current Visit: Yes Status: Acute Hgb of 7 upon admission. Transfused 1 unit PRBCs. Had some blood noted in NG tube. EGD showed gastric ulcer that was cauterized. Hgb has been stable. Plan: - Surgery consulted for EGD, now signed off - Continue to monitor for bleeding - Transfuse if Hgb <7 - F/u FOBT - Protonix 40 mg IV BID for GI ppx (5) Elevated liver enzymes Current Visit: Yes Status: Acute Likely to d/t hypotension/hypoperfusion. Liver ultrasound showed GB sludge, possible biliary obstruction. Plan: - AST/ALT elevated but downtrending - Will continue to monitor with LFTs (6) NSTEMI (non-ST elevated myocardial infarction) Current Visit: Yes Status: Acute Elevated troponins during cardiac arrest. Likely demand, rate-related vs. CPR related damage. Plan: - Cont to trend troponins, now downtrending - Cards consulted - Recs that risk of heparin gtt outweighs the benefits, pawan with recent bleeding - Started on heparin SQ for DVT ppx, stopped heparin gtt (7) HTN (hypertension) Current Visit: Yes Status: Chronic Chronic issue. Plan: - Currently normotensive - Will cont miguel meds if need and once more stable Qualifiers: Hypertension type: essential hypertension Qualified Code(s): I10 - Essential (primary) hypertension (8) DM2 (diabetes mellitus, type 2) Current Visit: Yes Status: Chronic Chronic issue. Plan: - Accuchecks - SSI Qualifiers: Diabetes mellitus terminal system operator insulin use: without terminal system operator use Diabetes mellitus complication status: without complication Qualified Code(s): E11.9 - Type 2 diabetes mellitus without complications (9) Hypothyroidism Current Visit: Yes Status: Chronic Chronic issue. Plan: - Cont home meds when stable Qualifiers: Hypothyroidism type: acquired Qualified Code(s): E03.9 - Hypothyroidism, unspecified (10) DVT prophylaxis Current Visit: Yes Status: Acute DVT PPX: EPCDs, hep SQ Analgesia: none Sedation: none SBT: completed Glycemic control: SSI Activity: as tolerated Fluids: none Electrolytes: replete as necessary Nutrition: CLD GI ppx: PPI Lines: 1x R IJ CVC, EPIV, ace Consults: pulm, cardio, surgery Code: FULL Dispo: ICU Subjective Principal diagnosis: Cardiac arrest Interval history: Patient was seen and examined at bedside. No acute events overnight. Extubated yesterday. Patient is responding to commands and is AAOx3. Patient feels like she is improving and denies any chest pain, dyspnea, palpitations, nausea, vomiting, fevers, or chills. Is tolerating clear liquids. Objective PUL Vital signs: Last Vital Signs Temp 98.3 F 12/11/18 07:34 Pulse 64 12/11/18 07:00 Resp 14 12/11/18 07:00 BP 123/53 12/11/18 07:00 Pulse Ox 98 12/11/18 07:00 General appearance: no acute distress Eyes: nonicteric ENT: oropharynx moist Neck: supple Effort: normal Auscultation: bilateral: clear Cardiovascular: regular rate and rhythm Gastrointestinal: normoactive bowel sounds, non-distended Integumentary: normal Extremities: no cyanosis, no edema, no clubbing Musculoskeletal: no deformities, ROM normal normal mental status, non-focal exam, motor strength normal and symmetric mood appropriate, affect normal Results - Laboratory Findings CBC and BMP: 12/11/18 04:20 12/11/18 04:20 ABG ABG pH 7.34 pH Units (7.32-7.45) 12/10/18 04:38 ABG pCO2 32 mmHg (35-45) L 12/10/18 04:38 ABG pO2 92 mmHg (85-104) 12/10/18 04:38 ABG O2 Saturation 97 % (95-98) 12/10/18 04:38 PT/INR, D-dimer PT 13.6 Seconds (9.4-12.1) H 12/09/18 15:35 Abnormal lab findings: Abnormal lab results WBC 16.2 K/mcL (4.3-11.1) H 12/11/18 04:20 RBC 3.03 M/mcL (3.82-4.97) L 12/11/18 04:20 Hgb 8.5 g/dL (11.5-15.4) L 12/11/18 04:20 Hct 25.8 % (35.3-44.9) L 12/11/18 04:20 MCH 27.7 pg (28.0-33.3) L 12/09/18 05:00 MCHC 30.8 g/dL (31.6-35.5) L 12/08/18 21:27 RDW 15.4 % (11.5-14.5) H 12/11/18 04:20 Neutrophils # 13.3 K/mcL (1.6-8.9) H 12/11/18 04:20 Nucleated RBCs/100 WBC 0.2 /100 WBC (0) H 12/10/18 03:29 Polychromasia 1+ (Not Present) A 12/08/18 21:27 Tear Drop Cells 2+ (Not Present) A 12/10/18 03:29 Ovalocytes 2+ (Not Present) A 12/10/18 03:29 [place] Cells 3+ (Not Present) A 12/10/18 03:29 Acanthocytes (Spur) 1+ (Not Present) A 12/08/18 21:27 Retic Hgb Equivalent 28.1 pg (28.61-36.33) L 12/08/18 21:27 PT 13.6 Seconds (9.4-12.1) H 12/09/18 15:35 Heparin Anti-Xa, Unfract 0.14 IU/mL (0.30-0.70) L 12/09/18 15:35 ABG pCO2 32 mmHg (35-45) L 12/10/18 04:38 ABG pO2 121 mmHg (85-104) H 12/09/18 05:15 ABG HCO3 17 mEq/L (21-27) L 12/10/18 04:38 ABG Total CO2 18 mEq/L (20-26) L 12/10/18 04:38 ABG O2 Saturation 99 % (95-98) H 12/09/18 05:15 ABG Base Excess -8 mEq/L (-2 to 3) L 12/10/18 04:38 Sodium 132 mEq/L (136-145) L 12/10/18 03:29 Potassium 3.4 mEq/L (3.5-5.1) L 12/11/18 04:20 Chloride 109 mEq/L (98-107) H 12/10/18 03:29 Carbon Dioxide 19 mEq/L (23-29) L 12/11/18 04:20 BUN 49 mg/dL (8-23) H 12/11/18 04:20 Creatinine 1.39 mg/dL (0.60-1.20) H 12/11/18 04:20 Est GFR ( Amer) 43 (> 60) L 12/11/18 04:20 Est GFR (Non-Af Amer) 36 (> 60) L 12/11/18 04:20 BUN/Creatinine Ratio 35 (6-26) H 12/11/18 04:20 Glucose 162 mg/dL (70-105) H 12/11/18 04:20 POC Glucose 211 mg/dL (70-99) H 12/10/18 23:18 Lactic Acid 3.4 mmol/L (0.5-2.2) H 12/08/18 21:27 Calcium 8.0 mg/dL (8.6-10.3) L 12/11/18 04:20 Venous Ioniz Calcium 1.11 mmol/L (1.15-1.35) L 12/09/18 09:14 Total Bilirubin 1.2 mg/dL (0.3-1.0) H 12/09/18 05:00 AST 158 Units/L (13-39) H 12/11/18 04:20 ALT 299 Units/L (7-52) H 12/11/18 04:20 Alkaline Phosphatase 123 Units/L (34-104) H 12/11/18 04:20 Troponin I 5.42 ng/mL (< 0.04) H* 12/11/18 04:20 Serum Total Protein 4.7 g/dL (6.4-8.9) L 12/11/18 04:20 Albumin 2.3 g/dL (3.5-5.7) L 12/11/18 04:20 Albumin/Globulin Ratio 1.0 (1.1-2.2) L 12/11/18 04:20 Crossmatch See Detail 12/08/18 21:27 - Clinical Findings Intake & Output: Intake & Output 12/10/18 12/10/18 12/11/18 15:59 23:59 07:59 Intake Total 542 / 2411.2 540 / 2411.2 300 / 300 Output Total 800 / 1475 300 / 1475 400 / 400 Balance -258 / 936.2 240 / 936.2 -100 / -100 Weight 92.8 kg Consult Discharge Plan - Plan Referrals: Julio Castillo, [facility] [Primary Care Provider] - <Rosalie Goldsmith - Last Filed: 12/11/18 21:33> Date of Encounter: 12/11/18 Objective PUL Vital signs: Last Vital Signs Temp 98.3 F 12/11/18 19:20 Pulse 72 12/11/18 19:20 Resp 20 12/11/18 19:20 BP 138/71 12/11/18 19:20 Pulse Ox 96 12/11/18 19:20 Results - Laboratory Findings CBC and BMP: 12/11/18 04:20 12/11/18 04:20 ABG ABG pH 7.34 pH Units (7.32-7.45) 12/10/18 04:38 ABG pCO2 32 mmHg (35-45) L 12/10/18 04:38 ABG pO2 92 mmHg (85-104) 12/10/18 04:38 ABG O2 Saturation 97 % (95-98) 12/10/18 04:38 PT/INR, D-dimer PT 13.6 Seconds (9.4-12.1) H 12/09/18 15:35 Abnormal lab findings: Abnormal lab results WBC 16.2 K/mcL (4.3-11.1) H 12/11/18 04:20 RBC 3.03 M/mcL (3.82-4.97) L 12/11/18 04:20 Hgb 8.5 g/dL (11.5-15.4) L 12/11/18 04:20 Hct 25.8 % (35.3-44.9) L 12/11/18 04:20 MCH 27.7 pg (28.0-33.3) L 12/09/18 05:00 MCHC 30.8 g/dL (31.6-35.5) L 12/08/18 21:27 RDW 15.4 % (11.5-14.5) H 12/11/18 04:20 Neutrophils # 13.3 K/mcL (1.6-8.9) H 12/11/18 04:20 Nucleated RBCs/100 WBC 0.2 /100 WBC (0) H 12/10/18 03:29 Polychromasia 1+ (Not Present) A 12/08/18 21:27 Tear Drop Cells 2+ (Not Present) A 12/10/18 03:29 Ovalocytes 2+ (Not Present) A 12/10/18 03:29 [place] Cells 3+ (Not Present) A 12/10/18 03:29 Acanthocytes (Spur) 1+ (Not Present) A 12/08/18 21:27 Retic Hgb Equivalent 28.1 pg (28.61-36.33) L 12/08/18 21:27 PT 13.6 Seconds (9.4-12.1) H 12/09/18 15:35 Heparin Anti-Xa, Unfract 0.14 IU/mL (0.30-0.70) L 12/09/18 15:35 ABG pCO2 32 mmHg (35-45) L 12/10/18 04:38 ABG pO2 121 mmHg (85-104) H 12/09/18 05:15 ABG HCO3 17 mEq/L (21-27) L 12/10/18 04:38 ABG Total CO2 18 mEq/L (20-26) L 12/10/18 04:38 ABG O2 Saturation 99 % (95-98) H 12/09/18 05:15 ABG Base Excess -8 mEq/L (-2 to 3) L 12/10/18 04:38 Sodium 132 mEq/L (136-145) L 12/10/18 03:29 Potassium 3.4 mEq/L (3.5-5.1) L 12/11/18 04:20 Chloride 109 mEq/L (98-107) H 12/10/18 03:29 Carbon Dioxide 19 mEq/L (23-29) L 12/11/18 04:20 BUN 49 mg/dL (8-23) H 12/11/18 04:20 Creatinine 1.39 mg/dL (0.60-1.20) H 12/11/18 04:20 Est GFR ( Amer) 43 (> 60) L 12/11/18 04:20 Est GFR (Non-Af Amer) 36 (> 60) L 12/11/18 04:20 BUN/Creatinine Ratio 35 (6-26) H 12/11/18 04:20 Glucose 162 mg/dL (70-105) H 12/11/18 04:20 POC Glucose 211 mg/dL (70-99) H 12/10/18 23:18 Lactic Acid 3.4 mmol/L (0.5-2.2) H 12/08/18 21:27 Calcium 8.0 mg/dL (8.6-10.3) L 12/11/18 04:20 Venous Ioniz Calcium 1.11 mmol/L (1.15-1.35) L 12/09/18 09:14 Total Bilirubin 1.2 mg/dL (0.3-1.0) H 12/09/18 05:00 AST 158 Units/L (13-39) H 12/11/18 04:20 ALT 299 Units/L (7-52) H 12/11/18 04:20 Alkaline Phosphatase 123 Units/L (34-104) H 12/11/18 04:20 Troponin I 5.42 ng/mL (< 0.04) H* 12/11/18 04:20 Serum Total Protein 4.7 g/dL (6.4-8.9) L 12/11/18 04:20 Albumin 2.3 g/dL (3.5-5.7) L 12/11/18 04:20 Albumin/Globulin Ratio 1.0 (1.1-2.2) L 12/11/18 04:20 Crossmatch See Detail 12/08/18 21:27 - Clinical Findings Intake & Output: Intake & Output 12/11/18 12/11/18 12/11/18 07:59 15:59 23:59 Intake Total 300 / 515 215 / 515 Output Total 400 / 725 150 / 725 175 / 725 Balance -100 / -210 65 / -210 -175 / -210 - Attending Attestation Attending Attestation I saw and evaluated this patient and my medical decision-making was reviewed with the Resident Physician. I agree with the documented findings, disposition and treatment plan as described except to the extent set forth below. We independently had [id number] contact with the patient Patient seen and examined at bedside Labs, radiology, chart personally reviewed. Management was reviewed during multidisciplinary critical care rounds. BALLISTICS TESTER: Patient is following commands no evidence of focal neurological deficit. Pulm: Patient has acceptable oxygenation and ventilation patient has background of diastolic heart failure to continue gentle diuresis. Cards: Patient developed cardiac arrest V. fib arrest with troponin leak to up to 7 echocardiogram shows diastolic heart failure no regional wall motion of now. Has no evidence of ischemic cardiomyopathy systolic function is preserved cardiology was consulted gave opinion that this can be a type II MIs supply demand mismatch no indication for cardiac catheterization. 12/11 patient did not have any arrhythmias according to heading and priming operator to change the amiodarone to be done about beta blockers. FEN-GI: Advance diet as tolerated Renal: Labs and output were reviewed ID: To cover with broad-spectrum antibiotics for aspiration. To deescalate antibiotics according to clinical response Heme/Onc: Labs Reviewed Endo: Glucose Monitored Integ/MSK: Skin Care per routine ICU Nursing Protocol to prevent ulcers. Lines: All lines examined without evidence of infection : Dispo: can be transferred to medical telemetry CODE: Full code patient was DNR CCA before the intubation will need to speak with the family. Before we change her CODE STATUS. Family was not available to talk .
[2018-12-11] MEDS: Aspirin 81 MG TAB.CHEW PO SCH (08:34)
--- NOTE | 2018-12-11 11:07 | Cardiology Progress Note ---
Date of Encounter: 12/11/18 Time of Encounter: 09:20 Assessment and Plan (1) Cardiac arrest Current Visit: Yes Status: Acute Reported vfib arrest at SNF s/p x3 rounds of CPR, epi, defibrillation x1. Etiology remains unclear however do not suspect ischemic as EF is preserved with normal wall motion. ECGs without acute ischemic changes. s/p 2 units of PRBC for GI bleed. S/p cauterization of gastric ulcer yesterday. She was treated with heparin gtt for 24 hours and now on SQ heparin. On amiodarone gtt after reported vfib arrest. I will discuss laborer marine terminal recommendations with Dr. Brandt. Noted 3-5 beats NSVT at times. Currently NSR. Patient is not a candidate for Cardiac rehab. Findings discussed with patient. C R/B/A vs medical management discussed. Patient prefers conservative medical therapy. She does not want to undergo medical procedures at this time. Continue asa, statin, BB. Please call with changes. Cardiology will sign off. (2) NSTEMI (non-ST elevated myocardial infarction) Current Visit: Yes Status: Acute Plan as above. Troponin elevation up to 7.02. Currently not candidate for cardiac rehab. Discussion w patient/family: The assessment and plan as outlined above was discussed with the patient and/or family members who expressed understanding and agreement. All questions were answered. Thank you for involving us in the care of your patient. Please call with any questions. Subjective Principal diagnosis: Cardiac arrest Interval history: Ms. Nixon is now extubated and alert and oriented. Denies chest pain. Denies SOB. States she was feeling her usual self up until cardiac arrest. Objective Vital Signs, Last 4 Hours Temp Pulse Resp BP Pulse Ox 12/11/18 09:00 66 23 127/53 97 12/11/18 08:00 62 20 135/60 98 12/11/18 07:34 98.3 F General: Conversant, No Apparent Distress HEENT: Atraumatic, Normocephaly, Mucus Membranes Moist Neck: No JVD, Normal carotid pulses Cardiac: Reg Rate and Rhythm, Normal S1 and S2, No Murmur Lungs: Normal Breath Sounds, No Wheeze, Rales, Rhonchi Neuro: Alert and responsive, No focal deficits noted Abdomen: Soft, Non-Tender Skin: No rashes noted on visualized skin Musculoskeletal: No Chest Wall Tenderness Extremities: No Clubbing, No Cyanosis, Normal Pulses, Other (Trace edema) Results 12/11/18 04:20 12/11/18 04:20 Lab Results 12/11/18 12/11/18 04:20 04:20 WBC 16.2 H Hgb 8.5 L Hct 25.8 L Plt Count 244 Sodium 136 Potassium 3.4 L Chloride 107 Carbon Dioxide 19 L BUN 49 H Creatinine 1.39 H Glucose 162 H Calcium 8.0 L Magnesium 2.2 Total Bilirubin 0.5 AST 158 H ALT 299 H Alkaline Phosphatase 123 H Troponin I 5.42 H* - Imaging and Cardiology Echo: report reviewed - EKG Interpretation EKG results cardiology: personally reviewed Consult Discharge Plan - Plan Referrals: Julio Castillo, PREPARATION PLANT SUPERVISOR [Primary Care Provider] -
[2018-12-11] MEDS ORDERED: Dextrose Gel 15 GM/37.5 ML TUBE PO PRN ×2 (18:24)
[2018-12-11] MEDS ORDERED: *HR* Dextrose 50 % in Water (Syg) 50 ML SYRINGE IVP PRN (18:24)
[2018-12-11] MEDS ORDERED: D5% in Water 1,000 ML IVC PRN (18:24)
[2018-12-11] MEDS ORDERED: Naloxone 0.4 MG/ML INJ IVP PRN (18:24)
[2018-12-12] MEDS ORDERED: Piperacillin/Tazobactam 3.375 GM in 0.9 % Sodium Chloride Mini Bag 100 ML IVPB SCH
[2018-12-12] MEDS: Insulin LISPRO 300 UNITS/3 ML VIAL SQ SCH ×5 (01:29→20:17)
[2018-12-12 02:43] LABS: Basophils % 0.1 %; Eosinophils # 0.1 K/mcL (0.0-0.6); Eosinophils % 0.5 %; Hematocrit 29.6 % (35.3-44.9); Hemoglobin 9.4 g/dL (11.5-15.4); Immature Granulocytes % 1.5 % (0-4); Lymphocytes # 2.5 K/mcL (0.6-4.6); Lymphocytes % 17.8 %; Mean Corpuscular HGB Conc 31.8 g/dL (31.6-35.5); Mean Corpuscular Hemoglobin 28.2 pg (28.0-33.3); Mean Corpuscular Volume 88.9 fL (83.0-100.0); Mean Platelet Volume 9.7 fL (9.4-12.4); Monocytes # 1.1 K/mcL (0.0-1.3); Neutrophils # 10.2 K/mcL (1.6-8.9); Platelet Count 232 K/mcL (140-400); Red Blood Count 3.33 M/mcL (3.82-4.97); Red Cell Distribution Width 15.7 % (11.5-14.5); Segmented Neutrophils % 72.1 %; White Blood Count 14.2 K/mcL (4.3-11.1)
[2018-12-12 02:58] LABS: Albumin 2.6 g/dL (3.5-5.7); Bilirubin,Total 0.7 mg/dL (0.3-1.0); Calcium 7.9 mg/dL (8.6-10.3); Globulin 2.6 g/dL (2.4-3.5); Magnesium 2.1 mg/dL (1.6-2.6); Potassium 3.4 mEq/L (3.5-5.1); Total Protein 5.2 g/dL (6.4-8.9)
[2018-12-12] MEDS ORDERED: *HR* Heparin 5,000 UNIT/ML VIAL SQ SCH (06:00)
[2018-12-12] MEDS ORDERED: Levothyroxine 25 MCG TABLET PO SCH (06:30)
[2018-12-12] MEDS: Pantoprazole 40 MG VIAL IVP SCH ×2 (06:31→18:19)
[2018-12-12] MEDS: Levothyroxine 25 MCG TABLET PO SCH (06:32)
--- NOTE | 2018-12-12 08:41 | Internal Med Progress Note ---
Hospitalist Progress Note - Encounter Date of Encounter: 12/12/18 Time of Encounter: 08:41 - Subjective Interval History: Was initially transferred due to cardiac arrest at rehab with recent hip fracture. Transferred out of ICU. Seen and examined at bedside this morning. No acute overnight events. Patient seen and examined this morning temperature. No acute overnight events. Denies new complaints. Feeling tired. Denies any chest pain abdominal pain nausea vomiting diarrhea. Reported having a bowel movement. complains of some chest soareness - Exam Vitals: Temp Pulse Resp BP Pulse Ox 97.7 F 77 18 165/73 99 12/12/18 07:07 12/12/18 07:07 12/12/18 07:07 12/12/18 07:07 12/12/18 07:07 Exam: General: In no acute distress. appears tired. Respiratory exam: CTAB. no accessory muscle use, rales, rhonchi, wheezes Cardiovascular exam: RRR, +S1, +S2. no murmur, gallop, rubs. GI/Abdominal exam: Non-tender, Non-distended, normal bowel sounds, soft, no peritoneal signs. Extremities exam: trace pedal edema, no calf tenderness, Rt IJ TLC removed with dressing Neurological exam: CN II-XII intact, AO X3, no focal deficits. Skin exam: No skin rash - Assessment and Plan (1) Closed left hip fracture Current Visit: Yes Status: Acute (2) HTN (hypertension) Current Visit: Yes Status: Chronic (3) DM2 (diabetes mellitus, type 2) Current Visit: Yes Status: Chronic (4) Hypothyroidism Current Visit: Yes Status: Chronic (5) Hyponatremia Current Visit: No Status: Acute (6) Acute respiratory failure with hypoxia Current Visit: Yes Status: Acute (7) Cardiac arrest Current Visit: Yes Status: Acute (8) Aspiration pneumonia due to inhalation of vomitus Current Visit: Yes Status: Acute (9) Anemia Current Visit: Yes Status: Acute (10) Elevated liver enzymes Current Visit: Yes Status: Acute (11) Abnormal urinalysis Current Visit: Yes Status: Acute (12) DVT prophylaxis Current Visit: Yes Status: Acute - Summary of Assessment and Plan Summary of Assessment and Plan: Assessment Acute Aspiration pneumonia vfib arrest acute hypoxic respiratory failure acute blood loss anemia Gastric ulcer NSTEMI Elevated LFT KYLER Chronic DM HTN hypothyroid Plan - Unclear etiology of cardiac arrest. Cardiology not suspecting ischemic etiology. no WMA on echo. Off amiodarone drip. Heparin drip stopped given anemia due to blood loss from gastric ulcer. LHC discussed by cardiology but patient want medical management. Cardiology signed off. continue aspirin, statin and metoprolol - Hb stable after blood transfusion of 2 PRBC. Gastric ulcer likely due to NSAID use, cauterized by surgery. Monitor Hb and other signs of bleeding. Will stop meloxicam and high dose aspirin on discharge. c/w PPI for now - BP stable with some high reading. continue to monitor on metoprolol. amdioarone stopped. Home NICOLE and HCTZ on hold - c/w SSI and accuchecks. BG slightly low this morning. - Elevated LFT with Liver US with sludge and/or stone. No wall thickening or pericholecystic fluid, has mild prominenc of biliary ducts intra/extrahepatic. AST/ALT improving but ALK phos still high. If not improving in 1-2 days will c onsider GI evaluation. Of note she said that she likely would refuse surgical intervention at this time - c/w zosyn for aspiration pneumonia for 2 more days. blood culture with no growth. WBC improving. - PT/OT consult - Time Spent with Patient Total time spent is greater than 50% in coordination of care (as documented) at patient's floor/unit and/or counseling patient: Internal Medicine: Result - Labs CBC & Chem 7: 12/12/18 01:30 12/12/18 01:30 Labs: Short CBC 12/12/18 Range/Units 01:30 WBC 14.2 H (4.3-11.1) K/mcL Hgb 9.4 L (11.5-15.4) g/dL Hct 29.6 L (35.3-44.9) % Plt Count 232 (140-400) K/mcL Neutrophils # 10.2 H (1.6-8.9) K/mcL BMP 12/12/18 01:30 Sodium 137 Potassium 3.4 L Chloride 109 H Carbon Dioxide 19 L BUN 43 H Creatinine 1.22 H Glucose 73 Calcium 7.9 L Liver Function 12/12/18 Range/Units 01:30 Total Bilirubin 0.7 (0.3-1.0) mg/dL AST 88 H (13-39) Units/L ALT 248 H (7-52) Units/L Alkaline Phosphatase 124 H (34-104) Units/L Albumin 2.6 L (3.5-5.7) g/dL - ABG Interpretation ABG results: ABG ABG pH 7.34 pH Units (7.32-7.45) 12/10/18 04:38 ABG pCO2 32 mmHg (35-45) L 12/10/18 04:38 ABG pO2 92 mmHg (85-104) 12/10/18 04:38 ABG O2 Saturation 97 % (95-98) 12/10/18 04:38 PT/INR, D-dimer PT 13.6 Seconds (9.4-12.1) H 12/09/18 15:35 Consult Discharge Plan - Plan Referrals: Julio Castillo, DIRECTOR PART [Primary Care Provider] - (1) Closed left hip fracture Qualifiers: Encounter type: initial encounter Qualified Code(s): S72.002A - Fracture of unspecified part of neck of left femur, initial encounter for closed fracture (2) HTN (hypertension) Qualifiers: Hypertension type: essential hypertension Qualified Code(s): I10 - Essential (primary) hypertension (3) DM2 (diabetes mellitus, type 2) Qualifiers: Diabetes mellitus intermodal customer service insulin use: without intermodal customer service use Diabetes mellitus complication status: without complication Qualified Code(s): E11.9 - Type 2 diabetes mellitus without complications (4) Hypothyroidism Qualifiers: Hypothyroidism type: acquired Qualified Code(s): E03.9 - Hypothyroidism, unspecified (9) Anemia Qualifiers: Anemia type: unspecified type Qualified Code(s): D64.9 - Anemia, unspecified
[2018-12-12] MEDS: Aspirin 81 MG TAB.CHEW PO SCH (09:09)
[2018-12-12] MEDS ORDERED: 0.9 % Sodium Chloride 1,000 ML IVC SCH ×2 (09:15→13:15)
--- NOTE | 2018-12-12 09:45 | Internal Med Progress Note ---
Hospitalist Progress Note - Encounter Date of Encounter: 12/12/18 - Exam Vitals: Temp Pulse Resp BP Pulse Ox 97.7 F 77 18 165/73 99 12/12/18 07:07 12/12/18 07:07 12/12/18 07:07 12/12/18 07:07 12/12/18 07:07 - Assessment and Plan (1) Closed left hip fracture Current Visit: Yes Status: Acute (2) HTN (hypertension) Current Visit: Yes Status: Chronic (3) DM2 (diabetes mellitus, type 2) Current Visit: Yes Status: Chronic (4) Hypothyroidism Current Visit: Yes Status: Chronic (5) Hyponatremia Current Visit: No Status: Acute (6) Acute respiratory failure with hypoxia Current Visit: Yes Status: Acute (7) Cardiac arrest Current Visit: Yes Status: Acute (8) Aspiration pneumonia due to inhalation of vomitus Current Visit: Yes Status: Acute (9) Anemia Current Visit: Yes Status: Acute (10) Elevated liver enzymes Current Visit: Yes Status: Acute (11) Abnormal urinalysis Current Visit: Yes Status: Acute (12) DVT prophylaxis Current Visit: Yes Status: Acute - Time Spent with Patient Total time spent is greater than 50% in coordination of care (as documented) at patient's floor/unit and/or counseling patient: Internal Medicine: Result - Labs CBC & Chem 7: 12/12/18 01:30 12/12/18 01:30 Labs: Short CBC 12/12/18 Range/Units 01:30 WBC 14.2 H (4.3-11.1) K/mcL Hgb 9.4 L (11.5-15.4) g/dL Hct 29.6 L (35.3-44.9) % Plt Count 232 (140-400) K/mcL Neutrophils # 10.2 H (1.6-8.9) K/mcL BMP 12/12/18 01:30 Sodium 137 Potassium 3.4 L Chloride 109 H Carbon Dioxide 19 L BUN 43 H Creatinine 1.22 H Glucose 73 Calcium 7.9 L Liver Function 12/12/18 Range/Units 01:30 Total Bilirubin 0.7 (0.3-1.0) mg/dL AST 88 H (13-39) Units/L ALT 248 H (7-52) Units/L Alkaline Phosphatase 124 H (34-104) Units/L Albumin 2.6 L (3.5-5.7) g/dL - ABG Interpretation ABG results: ABG ABG pH 7.34 pH Units (7.32-7.45) 12/10/18 04:38 ABG pCO2 32 mmHg (35-45) L 12/10/18 04:38 ABG pO2 92 mmHg (85-104) 12/10/18 04:38 ABG O2 Saturation 97 % (95-98) 12/10/18 04:38 PT/INR, D-dimer PT 13.6 Seconds (9.4-12.1) H 12/09/18 15:35 Consult Discharge Plan - Plan Referrals: Julio Castillo, PRESSURE SEALER AND TESTER [Primary Care Provider] - (1) Closed left hip fracture Qualifiers: Encounter type: initial encounter Qualified Code(s): S72.002A - Fracture of unspecified part of neck of left femur, initial encounter for closed fracture (2) HTN (hypertension) Qualifiers: Hypertension type: essential hypertension Qualified Code(s): I10 - Essential (primary) hypertension (3) DM2 (diabetes mellitus, type 2) Qualifiers: Diabetes mellitus terminal supervisor insulin use: without terminal supervisor use Diabetes mellitus complication status: without complication Qualified Code(s): E11.9 - Type 2 diabetes mellitus without complications (4) Hypothyroidism Qualifiers: Hypothyroidism type: acquired Qualified Code(s): E03.9 - Hypothyroidism, unspecified (9) Anemia Qualifiers: Anemia type: unspecified type Qualified Code(s): D64.9 - Anemia, unspecified
--- NOTE | 2018-12-12 10:44 | Event Note ---
Date of Encounter: 12/12/18 Time of Encounter: 10:30 - Cardiology Event Note Telemetry reviewed; one short episode of AT overnight; no VT or NSVT noted. Continue BB. Please refer to progress note 12/11 for full recommendations. Discussed with Dr. Louie; will sign-off.
[2018-12-12] MEDS: Piperacillin/Tazobactam 3.375 GM in 0.9 % Sodium Chloride Mini Bag 100 ML IVPB SCH ×2 (12:47→18:13)
[2018-12-13] MEDS: Piperacillin/Tazobactam 3.375 GM in 0.9 % Sodium Chloride Mini Bag 100 ML IVPB SCH ×3 (00:44→19:19)
[2018-12-13] MEDS ORDERED: *HR* Heparin 5,000 UNIT/ML VIAL IVP PRN ×2 (00:48)
--- NOTE | 2018-12-13 00:57 | Event Note ---
Date of Encounter: 12/12/18 Time of Encounter: 23:48 Alerted by patient's nurse GUMARO Castellon the patient HAD unilateral upper extremity venous duplex exam done. Positive DVT in the right brachial proximal level. Positive SVT in both the right cephalic vein upper and lower arm. Positive SVT in the basilic vein upper arm level only. DVT is above the EPIV. Patient is status post EGD with gastric ulcer cauterization on 12/10/18. Patient's initial Hgb was dropping but has remained stable post-procedure and post-blood transfusion. Discussed patient w/Dr. Gamez w/recommendation to consult Surgery for their recommendations regarding heparin gtt d/t patient's post-cauterization status two days ago. Paged Dr. John who was contractor broomcorn threshing w/recommendation to begin standard dose heparin gtt since the pt. was stable but not do an initial bolus. I appreciate the recommendations and direction as always. Timed H/Hs ordered. Nurse informed of this plan and instructed to continue monitoring this pt. for signs of bleeding and alert me immediately of any adverse changes.
[2018-12-13 01:39] LABS: Basophils % 0.1 %; Eosinophils # 0.1 K/mcL (0.0-0.6); Eosinophils % 0.7 %; Hemoglobin 9.5 g/dL (11.5-15.4); Immature Granulocytes % 1.6 % (0-4); Lymphocytes # 1.5 K/mcL (0.6-4.6); Lymphocytes % 12.8 %; Mean Corpuscular HGB Conc 32.8 g/dL (31.6-35.5); Mean Corpuscular Hemoglobin 28.3 pg (28.0-33.3); Mean Corpuscular Volume 86.3 fL (83.0-100.0); Mean Platelet Volume 9.8 fL (9.4-12.4); Monocytes # 0.8 K/mcL (0.0-1.3); Monocytes % 6.4 %; Neutrophils # 9.2 K/mcL (1.6-8.9); Platelet Count 218 K/mcL (140-400); Red Blood Count 3.36 M/mcL (3.82-4.97); Red Cell Distribution Width 16.1 % (11.5-14.5); Segmented Neutrophils % 78.4 %; White Blood Count 11.7 K/mcL (4.3-11.1)
[2018-12-13 01:54] LABS: INR 1.1; Prothrombin Time 12.3 Seconds (9.4-12.1)
[2018-12-13 01:58] LABS: Heparin anti-factor XA UFH 0.02 IU/mL (0.30-0.70)
[2018-12-13 02:01] LABS: BUN/Creatinine Ratio 32 (6-26); Blood Urea Nitrogen 32 mg/dL (8-23); Calcium 8.4 mg/dL (8.6-10.3); Carbon Dioxide 21 mEq/L (23-29); Chloride 107 mEq/L (98-107); Glucose 148 mg/dL (70-105); Osmolality,Calculated 290 (280-300); Potassium 3.4 mEq/L (3.5-5.1); Sodium 135 mEq/L (136-145); eGFR For African Americans > 60 (> 60); eGFR For Non-African Americans 52 (> 60)
[2018-12-13] MEDS: Heparin 25,000 UNIT/250 ML D5W 25,000 UNIT/250 ML IV.SOLN IVC SCH (02:38)
[2018-12-13] MEDS: Levothyroxine 25 MCG TABLET PO SCH (06:01)
[2018-12-13] MEDS: Pantoprazole 40 MG VIAL IVP SCH (06:01)
[2018-12-13 06:13] LABS: Hemoglobin 9.4 g/dL (11.5-15.4)
[2018-12-13] MEDS ORDERED: *HR* OxyCODONE Immed Rel 5 MG TABLET PO ONE (06:59)
--- NOTE | 2018-12-13 08:20 | Internal Med Progress Note ---
Hospitalist Progress Note - Encounter Date of Encounter: 12/13/18 Time of Encounter: 08:20 - Subjective Interval History: Patient seen and examined this morning. No acute overnight events. Denies new complaints. Denies any chest pain shortness of breath nausea vomiting or diarrhea. Still very weak. Denies any abdominal pain. - Exam Vitals: Temp Pulse Resp BP Pulse Ox 98 F 88 20 202/102 95 12/13/18 06:49 12/13/18 06:49 12/13/18 06:49 12/13/18 06:49 12/13/18 06:49 Exam: General: In no acute distress. appears tired. Respiratory exam: CTAB. no accessory muscle use, rales, rhonchi, wheezes Cardiovascular exam: RRR, +S1, +S2. no murmur, gallop, rubs. GI/Abdominal exam: Non-tender, Non-distended, normal bowel sounds, soft, no peritoneal signs. ace in place Extremities exam: trace pedal edema, no calf tenderness, Rt IJ TLC removed with dressing, Lt arm sling, dressing on Lt hip. b/l UE swelling Neurological exam: CN II-XII intact, AO X3, no focal deficits within limited exam Skin exam: No skin rash - Assessment and Plan (1) Closed left hip fracture Current Visit: Yes Status: Acute (2) HTN (hypertension) Current Visit: Yes Status: Chronic (3) DM2 (diabetes mellitus, type 2) Current Visit: Yes Status: Chronic (4) Hypothyroidism Current Visit: Yes Status: Chronic (5) Hyponatremia Current Visit: No Status: Acute (6) Acute respiratory failure with hypoxia Current Visit: Yes Status: Acute (7) Cardiac arrest Current Visit: Yes Status: Acute (8) Aspiration pneumonia due to inhalation of vomitus Current Visit: Yes Status: Acute (9) Anemia Current Visit: Yes Status: Acute (10) Elevated liver enzymes Current Visit: Yes Status: Acute (11) Abnormal urinalysis Current Visit: Yes Status: Acute (12) DVT prophylaxis Current Visit: Yes Status: Acute - Summary of Assessment and Plan Summary of Assessment and Plan: Assessment Acute Aspiration pneumonia vfib arrest acute hypoxic respiratory failure acute blood loss anemia Gastric ulcer NSTEMI Elevated LFT KYLER DVT in Rt brachial proximal and SVT in rt cephalic Chronic DM HTN hypothyroid Plan - Unclear etiology of cardiac arrest. Cardiology not suspecting ischemic etiology. no WMA on echo. Off amiodarone drip. LHC discussed by cardiology but patient want medical management. Cardiology signed off. continue aspirin, statin and metoprolol - Hb stable after blood transfusion of 2 PRBC. Gastric ulcer likely due to NSAID use, cauterized by surgery. Will stop meloxicam and high dose aspirin on discharge. c/w PPI daily. However patient found to have acute DVT on right brachial proximal. Patient was started on heparin drip overnight after discussion with surgery. Monitor Hb and other signs of bleeding. Will switch to eliquis on dischage. - BP stable with some high reading likely due to pain. continue to monitor on metoprolol. amdioarone stopped. Home NICOLE and HCTZ on hold. Huggins start pain medication prn as it may be contributory. - c/w SSI and accuchecks. Hold home glimepiride. - Elevated LFT with Liver US with sludge and/or stone. No wall thickening or pericholecystic fluid, has mild prominenc of biliary ducts intra/extrahepatic. AST/ALT improving but ALK phos still high. Will consult GI for need for further evaluation. However she said that she likely would refuse surgical intervention at this time if not urgently needed. - Finish zosyn for aspiration pneumonia till tomorrow. blood culture with no growth. WBC improving. - PT/OT consult. Recommending Swing bed. Internal Medicine: Result - Labs CBC & Chem 7: 12/13/18 09:49 12/13/18 01:24 Labs: Short CBC 12/13/18 12/13/18 Range/Units 01:24 05:49 WBC 11.7 H (4.3-11.1) K/mcL Hgb 9.5 L 9.4 L (11.5-15.4) g/dL Hct 29.0 L 28.0 L (35.3-44.9) % Plt Count 218 (140-400) K/mcL Neutrophils # 9.2 H (1.6-8.9) K/mcL BMP 12/13/18 01:24 Sodium 135 L Potassium 3.4 L Chloride 107 Carbon Dioxide 21 L BUN 32 H Creatinine 1.00 Glucose 148 H Calcium 8.4 L - ABG Interpretation ABG results: ABG ABG pH 7.34 pH Units (7.32-7.45) 12/10/18 04:38 ABG pCO2 32 mmHg (35-45) L 12/10/18 04:38 ABG pO2 92 mmHg (85-104) 12/10/18 04:38 ABG O2 Saturation 97 % (95-98) 12/10/18 04:38 PT/INR, D-dimer PT 12.3 Seconds (9.4-12.1) H 12/13/18 01:24 Consult Discharge Plan - Plan Referrals: Julio Castillo, DELIVERY TABLE FEEDER [Primary Care Provider] - (1) Closed left hip fracture Qualifiers: Encounter type: initial encounter Qualified Code(s): S72.002A - Fracture of unspecified part of neck of left femur, initial encounter for closed fracture (2) HTN (hypertension) Qualifiers: Hypertension type: essential hypertension Qualified Code(s): I10 - Essential (primary) hypertension (3) DM2 (diabetes mellitus, type 2) Qualifiers: Diabetes mellitus halfway insulin use: without halfway use Diabetes mellitus complication status: without complication Qualified Code(s): E11.9 - Type 2 diabetes mellitus without complications (4) Hypothyroidism Qualifiers: Hypothyroidism type: acquired Qualified Code(s): E03.9 - Hypothyroidism, unspecified (9) Anemia Qualifiers: Anemia type: unspecified type Qualified Code(s): D64.9 - Anemia, unspecified
[2018-12-13] MEDS: Insulin LISPRO 300 UNITS/3 ML VIAL SQ SCH ×4 (08:48→20:27)
[2018-12-13] MEDS: Aspirin 81 MG TAB.CHEW PO SCH (08:54)
[2018-12-13 10:09] LABS: Hematocrit 27.8 % (35.3-44.9); Hemoglobin 9.1 g/dL (11.5-15.4)
[2018-12-13 11:39] LABS: Alanine Aminotransferase 174 Units/L (7-52); Albumin 2.6 g/dL (3.5-5.7); Alkaline Phosphatase 112 Units/L (34-104); Aspartate Amino Transferase 46 Units/L (13-39); Bilirubin,Direct 0.3 mg/dL (0.0-0.2); Bilirubin,Indirect 0.8 mg/dL (0.0-1.2); Bilirubin,Total 1.1 mg/dL (0.3-1.0); Globulin 2.7 g/dL (2.4-3.5); Total Protein 5.3 g/dL (6.4-8.9)
[2018-12-13 14:23] LABS: Hematocrit 29.6 % (35.3-44.9)
[2018-12-13] MEDS: *HR* OxyCODONE/APAP 5/325 TABLET PO PRN (17:41)
[2018-12-13 18:38] LABS: Hematocrit 30.1 % (35.3-44.9)
[2018-12-13 22:04] LABS: Hematocrit 28.1 % (35.3-44.9); Hemoglobin 9.3 g/dL (11.5-15.4)
[2018-12-14] MEDS: Heparin 25,000 UNIT/250 ML D5W 25,000 UNIT/250 ML IV.SOLN IVC SCH (00:57)
[2018-12-14] MEDS: Piperacillin/Tazobactam 3.375 GM in 0.9 % Sodium Chloride Mini Bag 100 ML IVPB SCH ×2 (00:58→10:18)
[2018-12-14] MEDS: *HR* OxyCODONE/APAP 5/325 TABLET PO PRN ×2 (02:23→16:06)
[2018-12-14 03:07] LABS: Basophils % 0.1 %; Eosinophils # 0.2 K/mcL (0.0-0.6); Eosinophils % 1.8 %; Hematocrit 27.5 % (35.3-44.9); Immature Granulocytes % 1.4 % (0-4); Lymphocytes # 1.9 K/mcL (0.6-4.6); Lymphocytes % 16.8 %; Mean Corpuscular HGB Conc 32.7 g/dL (31.6-35.5); Mean Corpuscular Hemoglobin 28.1 pg (28.0-33.3); Mean Corpuscular Volume 85.9 fL (83.0-100.0); Mean Platelet Volume 10.2 fL (9.4-12.4); Monocytes # 0.7 K/mcL (0.0-1.3); Monocytes % 6.3 %; Neutrophils # 8.5 K/mcL (1.6-8.9); Platelet Count 256 K/mcL (140-400); Red Cell Distribution Width 16.1 % (11.5-14.5); Segmented Neutrophils % 73.6 %; White Blood Count 11.5 K/mcL (4.3-11.1)
[2018-12-14 03:28] LABS: Alanine Aminotransferase 106 Units/L (7-52); Albumin 2.5 g/dL (3.5-5.7); Alkaline Phosphatase 91 Units/L (34-104); Aspartate Amino Transferase 23 Units/L (13-39); BUN/Creatinine Ratio 30 (6-26); Blood Urea Nitrogen 26 mg/dL (8-23); Calcium 7.9 mg/dL (8.6-10.3); Carbon Dioxide 20 mEq/L (23-29); Chloride 106 mEq/L (98-107); Globulin 2.5 g/dL (2.4-3.5); Glucose 131 mg/dL (70-105); Osmolality,Calculated 285 (280-300); Potassium 3.2 mEq/L (3.5-5.1); Sodium 134 mEq/L (136-145); eGFR For African Americans > 60 (> 60); eGFR For Non-African Americans > 60 (> 60)
[2018-12-14] MEDS: Levothyroxine 25 MCG TABLET PO SCH (05:57)
[2018-12-14] MEDS: Insulin LISPRO 300 UNITS/3 ML VIAL SQ SCH ×2 (07:30→16:29)
[2018-12-14] MEDS ORDERED: Pantoprazole 40 MG VIAL IVP SCH (09:00)
[2018-12-14] MEDS: Aspirin 81 MG TAB.CHEW PO SCH (10:20)
[2018-12-14] MEDS ORDERED: *HR* Enoxaparin 100 MG/ML SYRINGE SQ SCH (10:45)
--- NOTE | 2018-12-14 11:14 | Gastroenterology Consult Note ---
<Murphy Mendoza - Last Filed: 12/14/18 11:12> Date of Encounter: 12/14/18 Time of Encounter: 09:30 - Assessment and plan (1) Elevated liver enzymes Status: Acute Assessment and plan: Likely secondary to shock liver due to cardiac arrest. TB 0.8--1.2--0.8--0.5--0.7--1.1--1 AST 548--425--427--158--88--46--23 ALT 278--230--428--299--248--174--106 AP 84--91--134--123--124--112--91 Continue to monitor hepatic panel daily. RUQ US showed sludge and/or small nonshadowing stones within distended gallblad cele, no gallbladder wall thickening or pericholecystic fluid, CBD 8-9 mm. No indication for invasive procedure at this time. (2) Anemia Status: Acute Assessment and plan: Hgb 7 on admission and Hgb 9 today. Continue to monitor CBC and transfuse PRBC as needed. EGD 12/[address] Hayes with oozing gastric ulcer, treated with APC. Qualifiers: Anemia type: unspecified type Qualified Code(s): D64.9 - Anemia, unspecified (3) Gastric ulcer Status: Acute Assessment and plan: Recommend Carafate TID. Qualifiers: Gastric ulcer chronicity: unspecified ulcer chronicity Gastric ulcer complication status: with hemorrhage Qualified Code(s): K25.4 - Chronic or unspecified gastric ulcer with hemorrhage - Time Spent With Patient Total time spent is greater than 50% in coordination of care (as documented) at patient's floor/unit and/or counseling patient: GI History of Present Illness - Data of Consult Patient: new to practice Consult date: 12/14/18 Requesting Physician: Eddie Morris MD - Consult Narrative Reason for consult: Elevated LFTs History of present illness: Ms. Nixon is a 87 year old female with PMHx of DM, HTN, thyroid disease presented as a transfer from [facility] due to cardiac arrest at [facility]. Status post-surgery for hip fracture and while in rehabilitation patient was talking to family members and became unresponsive, CPR was initiated and V. fib arrest was shocked. We were consulted due to elevated LFTs. On admission TB 0.8, AST 548, ALT 278, AP 84. RUQ US showed sludge and/or small nonshadowing stones within distended gallbladder, no gallbladder wall thickening or pericholecystic fluid. TB peaked at 1.2 on 12/09, AST peaked at 548 on admission, ALT peaked at 428 on 12/10, AP peaked at 134 on 12/10. Procedures: EGD 12/09/2017 Dr. Hayes: Multiple gastric polyps, oozing gastric ulcer with visible vessel treated with APC. NSAIDs: ASA 325 mg, Mobic Anticoagulation: None Past Med Surg Social Fam HX - Past Medical History Medical history: arthritis, diabetes, hypertension, thyroid disease Psychiatric history: no psych history - Past Surgical History Surgical History: orthopedic, other (Left hip pinning) - Social History Smoking Status: Never smoker Smokeless Tobacco Status: No Alcohol use: none Drug use: none - Family History Son Adopted: No Family Member Ethnicity: Non- Living Status: Still Living Hx Family Cardiac Disorders: No Hx Family Respiratory Disorders: No Hx Family Cancer: No Hx Family GI Disorders: No Hx Family Endocrine Disorder: No Hx Family Neuromuscular Disorders: No Hx Family Neurologic Disorders: No Hx Family HEENT Disorders: No Hx Family Autoimmune Disorders: No - Gastrointestinal Gastrointestinal: Present: as per HPI - Constitutional Constitutional: as per HPI - EENT Eyes: as per HPI Ears: Present: as per HPI Nose, mouth and throat: Present: as per HPI - Cardiovascular Cardiovascular ROS: Present: as per HPI - Respiratory Respiratory IM: Present: as per HPI - Genitourinary Genitourinary: Absent: change in color, Urinary frequency - Neurological ROS Neurological GI: Present: as per HPI - Hematologic/Lymphatic Hematologic/Lymphatic pediatric: Present: as per HPI - Musculoskeletal Musculoskeletal ROS GI: Present: as per HPI - Integumentary Integumentary GI: Present: as per HPI - Psychiatric ROS Psychiatric GI: Present: as per HPI - Endocrine Endocrine IM: Present: as per HPI - Constitutional Vitals: Temp Pulse Resp BP Pulse Ox 98.3 F 78 18 172/67 95 12/14/18 07:22 12/14/18 07:22 12/14/18 07:22 12/14/18 07:22 12/14/18 07:22 General appearance: Present: cooperative, A&O X 3, no acute distress, answers questions appropriately - Head Head exam: Present: atraumatic, normocephalic - Eye Eye exam: Present: normal appearance, sclera anicteric - ENT ENT exam: Present: mucous membranes moist - Neck Neck exam general surgery: Present: normal inspection, trachea midline - Respiratory Respiratory exam: Present: CTAB. Absent: rales, rhonchi - Cardiovascular Cardiovascular exam: Present: RRR, +S1, +S2 - GI/Abdominal GI/Abdominal exam: Present: soft, no peritoneal signs. Absent: distended, firm, guarding, tenderness - Rectal Rectal exam: Present: deferred - Extremities Exam Extremities exam: Present: warm - Neurological Exam Neurological exam: Present: no focal deficits - Psychiatric Psychiatric exam: Present: normal affect, normal mood - Skin Skin exam: Present: dry, intact, normal color, warm Results - Labs CBC & Chem 7: 12/14/18 02:19 12/14/18 02:19 Labs: Last Result 12/14/18 02:19 Calcium 7.9 L Entire Visit 12/14/18 12/14/18 02:19 02:19 Hgb 9.0 L Hct 27.5 L Total Bilirubin 1.0 AST 23 ALT 106 H - ABG ABG results: ABG ABG pH 7.34 pH Units (7.32-7.45) 12/10/18 04:38 ABG pCO2 32 mmHg (35-45) L 12/10/18 04:38 ABG pO2 92 mmHg (85-104) 12/10/18 04:38 ABG O2 Saturation 97 % (95-98) 12/10/18 04:38 PT/INR, D-dimer PT 12.3 Seconds (9.4-12.1) H 12/13/18 01:24 Consult Discharge Plan - Plan Referrals: Julio Castillo, [employer] [Primary Care Provider] - Prescriptions: Furosemide [Lasix] 20 mg PO DAILY 30 Days #30 tablet Pantoprazole Sodium 40 mg PO DAILY 30 Days #30 tablet.dr Transmission Status: Received by [facility] Potassium Chloride 8 meq PO DAILY 30 Days #30 capsule.er <Jeremiah Woods - Last Filed: 01/03/19 04:47> Date of Encounter: 12/14/18 - Time Spent With Patient Total time spent is greater than 50% in coordination of care (as documented) at patient's floor/unit and/or counseling patient: GI History of Present Illness - Data of Consult Requesting Physician: Eddie Morris MD - Consult Narrative History of present illness: Ms. Nixon is a 88 year old female - Constitutional Vitals: Temp Pulse Resp BP Pulse Ox 98.3 F 72 16 170/76 94 12/14/18 07:22 12/14/18 11:46 12/14/18 11:46 12/14/18 11:46 12/14/18 11:46 Results - Labs CBC & Chem 7: 12/14/18 02:19 12/14/18 02:19 - ABG ABG results: ABG ABG pH 7.34 pH Units (7.32-7.45) 12/10/18 04:38 ABG pCO2 32 mmHg (35-45) L 12/10/18 04:38 ABG pO2 92 mmHg (85-104) 12/10/18 04:38 ABG O2 Saturation 97 % (95-98) 12/10/18 04:38 PT/INR, D-dimer PT 12.3 Seconds (9.4-12.1) H 12/13/18 01:24 - Attending Attestation Agree with assessment. Patient has shock liver and the liver associated enzymes should trend downward daily. She has a history of bleeding gastric ulcer discovered on a previous EGD. Will need endoscopy at some point in the near future. Timing to be decided as we go along. I have personally performed a face to face evaluation on this patient. I have reviewed and agree with the care plan. History and Exam by me shows:
[2018-12-14 11:50] VITALS: BP 170/76
[2018-12-14] MEDS ORDERED: amLODIPine 5 MG TABLET PO SCH (12:48)
--- NOTE | 2018-12-14 12:50 | Discharge Summary ---
- NOTES TO OUTPATIENT PROVIDER Notes to Outpatient Provider: Patient discharged to [facility] for further rehabilitation. We will need close monitoring of her hemoglobin given she is on blood thinner for DVT and recently had a gastric ulcer secondary to NSAID use. Discharged with PPI and Carafate. Orders not resulted at time of discharge: Pending orders 12/09/18 09:31 Fecal Hemoccult [Occult Blood,Stool] [BF] Stat Date of Encounter: 12/14/18 Time of Encounter: 12:47 - Discharge Diagnosis (1) Acute respiratory failure with hypoxia Priority: Primary Status: Acute (2) Cardiac arrest Priority: Primary Status: Acute (3) Closed left hip fracture Priority: Secondary Status: Acute Qualifiers: Encounter type: initial encounter Qualified Code(s): S72.002A - Fracture of unspecified part of neck of left femur, initial encounter for closed fracture (4) HTN (hypertension) Priority: Secondary Status: Chronic Qualifiers: Hypertension type: essential hypertension Qualified Code(s): I10 - Essential (primary) hypertension (5) DM2 (diabetes mellitus, type 2) Priority: Secondary Status: Chronic Qualifiers: Diabetes mellitus termite treater helper insulin use: without termite treater helper use Diabetes mellitus complication status: without complication Qualified Code(s): E11.9 - Type 2 diabetes mellitus without complications (6) Hypothyroidism Priority: Secondary Status: Chronic Qualifiers: Hypothyroidism type: acquired Qualified Code(s): E03.9 - Hypothyroidism, unspecified (7) Hyponatremia Priority: Secondary Status: Acute (8) Aspiration pneumonia due to inhalation of vomitus Priority: Secondary Status: Acute (9) Anemia Priority: Secondary Status: Acute Qualifiers: Anemia type: iron deficiency Iron deficiency anemia type: chronic blood loss Qualified Code(s): D50.0 - Iron deficiency anemia secondary to blood loss (chronic) (10) Elevated liver enzymes Priority: Secondary Status: Acute (11) Abnormal urinalysis Priority: Secondary Status: Acute (12) DVT prophylaxis Priority: Secondary Status: Acute (13) DVT (deep venous thrombosis) Priority: Secondary Status: Acute Qualifiers: DVT location: upper extremity Affected thrombotic vein of extremity: brachial Chronicity: acute Laterality: right Qualified Code(s): I82.621 - Acute embolism and thrombosis of deep veins of right upper extremity Hospital course: Ms. Nixon is a 87 year old female with past medical history of diabetes, hypertension, hyperlipidemia, chronic anemia, came in from [facility] due to cardiac arrest. Patient was at the rehabilitation facility after recent hip surgery. Patient was found unresponsive and had management of V. fib arrest with ROSC and was transferred here for further management to ICU. Patient was intubated and transferred. Patient was admitted with cardiology. EKG was without any signs of ischemia except some ST changes related to epinephrine use. Echocardiogram showed ejection fraction of 60-65% without any wall motion abnormalities. Patient's amiodarone drip was stopped after 2 days. Unclear per cardiology as the underlying cause of V. fib arrest. Patient was not put on heparin drip given anemia. Patient received 2 units of PRBC due to her anemia. Surgical consultation was obtained for endoscopic evaluation of anemia and she was found to have small gastric ulcer about 6 mm which was cauterized. His most PPI. Since Her Arrest She Was Also Noted to Have Elevated Liver Enzymes. It gradually trended down. Liver ultrasound showed some biliary sludge. GI evaluation was obtained who did not recommend any further evaluation however recommended adding Carafate for gastric ulcer. Patient was found to have right brachial DVT and was started on heparin after surgery okay to start. Patient did not have any signs of GI bleeding however she had minimal stool output. Patient is very debilitated and was recommended inpatient rehabilitation. Voiding trial after removal of Ace did not succeed and had to put back her catheter. Had KYLER that was present on admission resolved. She also had been started on treatment for aspiration pneumonia since ICU and speech evaluation was obtained. She finished her course of Zosyn. No blood cultures were positive. Her white count improved. We will resume Lasix on discharge given her renal function normalizes and has trace pedal edema. We will switch her home Dyazide to amlodipine and stop her NSAIDs. Decrease aspirin to 81 mg. Case was discussed with Dr. Ortiz with peer to peer. Patient's heparin drip started for her DVT that would be transitioned to Lovenox. Patient was accepted to be discharged to [facility] for further inpatient rehabilitation as she has significant deconditioning. Discharge discussed with: patient, nurse, social work, case management, economic consultant - Time Spent with Patient Total time spent providing and/or coordinating discharge services: Time spent: Greater than 30 minutes (40) - Discharge Medications Prescriptions: New Enoxaparin [Lovenox] 90 mg SQ BID syringe Aspirin 81 mg PO DAILY tab.chew Sucralfate [Carafate] 1 gm PO QIDAC tablet amLODIPine [Norvasc] 10 mg PO DAILY tablet Pantoprazole Sodium 40 mg PO DAILY 30 Days #30 tablet. Furosemide [Lasix] 20 mg PO DAILY 30 Days #30 tablet Potassium Chloride 8 meq PO DAILY 30 Days #30 capsule.er Continued Metoprolol Succinate [Toprol Xl] 50 mg PO DAILY Glimepiride [Amaryl] 4 mg PO DAILY Ramipril [Altace] 10 mg PO DAILY Atorvastatin [Lipitor] 40 mg PO HS Levothyroxine [Synthroid] 25 mcg PO 0630 HYDROcodone/Acet 5/325 mg [[place] 5-325 mg] 1 tab PO Q4H PRN PRN Reason: Moderate Pain Discontinued Loratadine [Claritin] 1 tab PO DAILY Potassium Chloride [K-Tab ER] 8 meq PO DAILY Omeprazole [PriLOSEC] 20 mg PO DAILY Meloxicam [Mobic] 7.5 mg PO DAILY Triamterene/HCTZ 37.5/25mg [Dyazide] 1 tab PO DAILY Aspirin [Ecotrin] 325 mg PO DAILY Furosemide [Lasix] 20 mg PO DAILY Home Medications: Atorvastatin [Lipitor] 40 mg PO HS 12/03/18 [History] Glimepiride [Amaryl] 4 mg PO DAILY 12/03/18 [History] Levothyroxine [Synthroid] 25 mcg PO 0630 12/03/18 [History] Metoprolol Succinate [Toprol Xl] 50 mg PO DAILY 12/03/18 [History] Ramipril [Altace] 10 mg PO DAILY 12/03/18 [History] HYDROcodone/Acet 5/325 mg [[place] 5-325 mg] 1 tab PO Q4H PRN 12/06/18 [History] Aspirin 81 mg PO DAILY tab.chew 12/14/18 [Rx] Enoxaparin [Lovenox] 90 mg SQ BID syringe 12/14/18 [Rx] Furosemide [Lasix] 20 mg PO DAILY 30 Days #30 tablet 12/14/18 [Rx] Pantoprazole Sodium 40 mg PO DAILY 30 Days #30 tablet. 12/14/18 [Rx] Potassium Chloride 8 meq PO DAILY 30 Days #30 capsule.er 12/14/18 [Rx] Sucralfate [Carafate] 1 gm PO QIDAC tablet 12/14/18 [Rx] amLODIPine [Norvasc] 10 mg PO DAILY tablet 12/14/18 [Rx] Allergies/Adverse Reactions: Allergy/AdvReac Type Severity Reaction Status Date / Time celecoxib [From Celebrex] Allergy Hives Verified 12/04/18 10:49 codeine Allergy Hives Verified 12/04/18 10:49 Date of admission: 12/08/18 20:18 Primary care physician: Julio Castillo CNP Consults: 12/08/18 23:02 Consult to Cardiology [CONS] Routine Comment: Consulting Provider: Cardiology Adela Reason for Consult: Cardiac arrest Call Completed: No Consult to Pulmonology [CONS] Routine Consulting Provider: [facility] Reason for Consult: vent management Call Completed: No 12/09/18 10:58 Consult to Surgery [CONS] Stat Consulting Provider: Logan Hayes Reason for Consult: GI bleed Time Notified: 10:59 Call Completed: Yes 12/11/18 11:19 Consult to Cardiac Rehabilitation-Phase1 [CONS] Routine Comment: Reason for Consult: NSTEMI- poor candidate Call Completed: No 12/11/18 14:06 Consult to Invasive Line Access Team [CONS] Routine Reason for Consult: needs access so nurse can remove cvc, thanks Line Type: EPIV 12/12/18 09:18 Consult to Occupational Therapy [CONS] Routine Comment: Evaluate, develop and implement POC Reason for Consult: improve mobility, discharge planning Does patient have active BEDREST order?: No Is patient medically & hemodynamically stable?: Yes Consult to Physical Therapy [CONS] Routine Comment: Evaluate, develop and implement POC Reason for Consult: improve mobility, discharge planning Does patient have active BEDREST order?: No Is patient medically & hemodynamically stable?: Yes 12/13/18 13:34 Consult to Gastroenterology [CONS] Routine Consulting Provider: Gastroenterology Adela Reason for Consult: elevated lft, alk phos, biliary sludge Call Completed: No 12/14/18 07:44 Consult to Speech Therapy [CONS] Routine Comment: Evaluate, develop and implement POC Reason for Consult: swallow evaluation, Call Completed: No Discharging clinician: Eddie Jeffery Morris - Constitutional Vitals: Temp Pulse Resp BP Pulse Ox 98.3 F 72 16 170/76 94 12/14/18 07:22 12/14/18 11:46 12/14/18 11:46 12/14/18 11:46 12/14/18 11:46 Exam: General: In no acute distress. appears tired. Respiratory exam: CTAB. no accessory muscle use. Occasional crackles. Cardiovascular exam: RRR, +S1, +S2. no murmur, gallop, rubs. tenderness on chest wall GI/Abdominal exam: Non-tender, Non-distended, normal bowel sounds, soft, no peritoneal signs. ace in place Extremities exam: trace pedal edema, no calf tenderness, Rt IJ TLC removed with dressing, Lt arm sling, dressing on Lt hip. b/l UE swelling Neurological exam: CN II-XII intact, AO X3, no focal deficits within limited exam Skin exam: No skin rash - Patient Status Disposition: Transfer Hospital Swing Bed Condition: Fair - Discharge Instructions Follow Up With: Julio Castillo, [employer] [Primary Care Provider] - - Diet and Activity Activity: as per physical therapy
[2018-12-14] MEDS ORDERED: FLU Vac QV 19-20 (18YR+)/PF 0.5 ML SYRINGE IM ONE (15:46)
[2018-12-14] MEDS ORDERED: FLU Vac QV 19-20 (6Month+)/PF 0.5 ML SYRINGE IM ONE (16:04)
[2018-12-14] MEDS ORDERED: Sucralfate 1 GM TABLET PO SCH (16:30)
--- NOTE | 2018-12-14 16:55 | Physician Discharge Referral ---
ExtendedCare Referral Info Institutional Level of Care: Skilled - Diagnosis (1) Acute respiratory failure with hypoxia Status: Acute (2) Cardiac arrest Status: Acute (3) Closed left hip fracture Status: Acute (4) HTN (hypertension) Status: Chronic (5) DM2 (diabetes mellitus, type 2) Status: Chronic (6) Hypothyroidism Status: Chronic (7) Hyponatremia Status: Acute (8) Aspiration pneumonia due to inhalation of vomitus Status: Acute (9) Anemia Status: Acute (10) Elevated liver enzymes Status: Acute (11) Abnormal urinalysis Status: Acute (12) DVT prophylaxis Status: Acute (13) DVT (deep venous thrombosis) Status: Acute - Transfer Medications Prescriptions: Furosemide [Lasix] 20 mg PO DAILY 30 Days #30 tablet Pantoprazole Sodium 40 mg PO DAILY 30 Days #30 tablet. Potassium Chloride 8 meq PO DAILY 30 Days #30 capsule.er Home Medications: Atorvastatin [Lipitor] 40 mg PO HS 12/03/18 [History] Glimepiride [Amaryl] 4 mg PO DAILY 12/03/18 [History] Levothyroxine [Synthroid] 25 mcg PO 0630 12/03/18 [History] Metoprolol Succinate [Toprol Xl] 50 mg PO DAILY 12/03/18 [History] Ramipril [Altace] 10 mg PO DAILY 12/03/18 [History] HYDROcodone/Acet 5/325 mg [[place] 5-325 mg] 1 tab PO Q4H PRN 12/06/18 [History] Aspirin 81 mg PO DAILY tab.chew 12/14/18 [Rx] Enoxaparin [Lovenox] 90 mg SQ BID syringe 12/14/18 [Rx] Furosemide [Lasix] 20 mg PO DAILY 30 Days #30 tablet 12/14/18 [Rx] Pantoprazole Sodium 40 mg PO DAILY 30 Days #30 tablet. 12/14/18 [Rx] Potassium Chloride 8 meq PO DAILY 30 Days #30 capsule.er 12/14/18 [Rx] Sucralfate [Carafate] 1 gm PO QIDAC tablet 12/14/18 [Rx] amLODIPine [Norvasc] 10 mg PO DAILY tablet 12/14/18 [Rx] Allergies/Adverse Reactions: Allergy/AdvReac Type Severity Reaction Status Date / Time celecoxib [From Celebrex] Allergy Hives Verified 12/04/18 10:49 codeine Allergy Hives Verified 12/04/18 10:49 - Respiratory Orders Smoking Cessation: Smoking cessation has been advised. For more information, call the [place] Tobacco Quit Line at 2-337-AAFN-NOW. CERTIFICATION: I certify that the transfer of the above named patient to an Extended Care Facility is necessary for the continuing treatment of the diagnosis listed. The above information is true and accurate reflection of patient's current condition. Confidential - Redisclosure prohibited without a patient's written consent.
[2018-12-14] MEDS ORDERED: Lactulose Oral Soln 20 GM/30 ML UDC PO ONE (17:00)
== END 2018-12-14 17:50 | disposition other institution (70) | DRG 208 ==
LOC: ICNU 20:18 → SUATTDRO 20:18 → 2NENU 12-11 18:54
PROVIDERS: ADMIT Internal Medicine; ATTEND Internal Medicine

== ENCOUNTER 2018-12-25 10:20 | Inpatient (IN) ==
[2018-12-25] MEDS ORDERED: Naloxone 0.4 MG/ML INJ IVP PRN (12:51)
[2018-12-25] MEDS ORDERED: Ondansetron 4 MG/2 ML VIAL IVP PRN (12:51)
[2018-12-25] MEDS ORDERED: Dextrose Gel 15 GM/37.5 ML TUBE PO PRN ×2 (12:53)
[2018-12-25] MEDS ORDERED: D5% in Water 1,000 ML IVC PRN (12:53)
[2018-12-25] MEDS ORDERED: *HR* Dextrose 50 % in Water (Syg) 50 ML SYRINGE IVP PRN (12:53)
[2018-12-25] MEDS ORDERED: D5% in 0.9% NACL 1,000 ML IVC SCH (13:00)
[2018-12-25] MEDS ORDERED: Isovue-370 500 ML BOTTLE IVP ONE (13:05)
[2018-12-25 13:55] LABS: Basophils % 0.4 %; Eosinophils # 0.1 K/mcL (0.0-0.6); Eosinophils % 1.3 %; Hematocrit 22.1 % (35.3-44.9); Hemoglobin 7.1 g/dL (11.5-15.4); Immature Granulocytes % 0.4 % (0-4); Lymphocytes # 1.2 K/mcL (0.6-4.6); Lymphocytes % 26.9 %; Mean Corpuscular HGB Conc 32.1 g/dL (31.6-35.5); Mean Corpuscular Hemoglobin 28.6 pg (28.0-33.3); Mean Corpuscular Volume 89.1 fL (83.0-100.0); Mean Platelet Volume 10.6 fL (9.4-12.4); Monocytes # 0.6 K/mcL (0.0-1.3); Monocytes % 12.4 %; Neutrophils # 2.7 K/mcL (1.6-8.9); Platelet Count 358 K/mcL (140-400); Red Blood Count 2.48 M/mcL (3.82-4.97); Segmented Neutrophils % 58.6 %; White Blood Count 4.5 K/mcL (4.3-11.1)
--- NOTE | 2018-12-25 14:05 | Internal Med History&Physical ---
Date of Encounter: 12/25/18 Time of Encounter: 14:00 Internal Medicine - H&P: HPI Chief complaint: bloody stool Plans for Post Hospital Care: Transfer Inp Rehab Fac History of present illness: Ms. Nixon is a 87 year old female PMH of CAD with recent NSTEMI but patient refused any intervention, bleeding PUD s/p cauterization on 12/10/18, left femoral fracture, right upper extr dvt on full dose anticoagulation, left humeral fracture and cardiac arrest. Patient was transferred to [facility] due to bloody stool. Patient poor historian. Patient reported for the past couple of day she has been feeling very weak and had very poor oral intake. Stated today she was told she was having dark stool and needed to be sent to the hospital for evaluation. Patient denies chest pain, abdominal pain, nausea or vomiting. Reported very poor oral intake for the past couple of weeks because everything she eats makes her stomach sick. Past Med Surg Social Fam HX - Past Medical History Medical history: arthritis, coronary artery disease, DVT, diabetes, GI bleed, hypertension, thyroid disease Psychiatric history: no psych history - Past Surgical History Surgical History: orthopedic, other - Social History Smoking Status: Never smoker Smokeless Tobacco Status: No Alcohol use: none Drug use: none - Family History Son Adopted: No Family Member Ethnicity: Non- Living Status: Still Living Hx Family Cardiac Disorders: No Hx Family Respiratory Disorders: No Hx Family Cancer: No Hx Family GI Disorders: No Hx Family Endocrine Disorder: No Hx Family Neuromuscular Disorders: No Hx Family Neurologic Disorders: No Hx Family HEENT Disorders: No Hx Family Autoimmune Disorders: No Internal Medicine - H&P: Meds Atorvastatin [Lipitor] 40 mg PO HS 12/03/18 [History] Glimepiride [Amaryl] 4 mg PO DAILY 12/03/18 [History] Levothyroxine [Synthroid] 25 mcg PO 0630 12/03/18 [History] Metoprolol Succinate [Toprol Xl] 50 mg PO DAILY 12/03/18 [History] Ramipril [Altace] 10 mg PO DAILY 12/03/18 [History] Aspirin 81 mg PO DAILY tab.chew 12/14/18 [Rx] Enoxaparin [Lovenox] 90 mg SQ BID syringe 12/14/18 [Rx] Furosemide [Lasix] 20 mg PO DAILY 30 Days #30 tablet 12/14/18 [Rx] HYDROcodone/Acet 5/325 mg [[place] 5-325 mg] 1 tab PO Q4H PRN 3 Days #12 tablet 12/14/18 [Rx] Pantoprazole Sodium 40 mg PO DAILY 30 Days #30 tablet. 12/14/18 [Rx] Potassium Chloride 8 meq PO DAILY 30 Days #30 capsule.er 12/14/18 [Rx] Sucralfate [Carafate] 1 gm PO QIDAC tablet 12/14/18 [Rx] amLODIPine [Norvasc] 10 mg PO DAILY tablet 12/14/18 [Rx] Allergy/AdvReac Type Severity Reaction Status Date / Time celecoxib [From Celebrex] Allergy Hives Verified 12/04/18 10:49 codeine Allergy Hives Verified 12/04/18 10:49 All Systems PM: A 10-system review of systems was performed and is negative for pertinent findings except as documented above in the HPI. - Constitutional Constitutional: weakness, no chills, no fever(s), no lethargy, no malaise - Cardiovascular Cardiovascular ROS IM: no claudication, no dyspnea on exertion, no edema - Respiratory Respiratory: no cough, no wheezing, no chest congestion - Gastrointestinal Gastrointestinal: loose stools, melena, no abdominal pain, no nausea, no vomiting - Genitourinary Genitourinary: no dysuria - Musculoskeletal Musculoskeletal ROS IM: no atrophy - Integumentary Integumentary IM: no erythema - Neurological Neurological ROS: no focal weakness, no frequent falls, no headache(s) - Psychiatric Psychiatric: no anxiety, no irritability - Endocrine Endocrine IM: no cold intolerance, no excessive sweating - Hematologic/Lymphatic Hematologic/Lymphatic: no lymphadenopathy - Allergic/Immunologic Allergic/Immunologic: no GI upset with certain foods - Constitutional Vitals: Temp Pulse Resp BP Pulse Ox 97.9 F 70 17 148/68 96 12/25/18 12:52 12/25/18 12:52 12/25/18 12:52 12/25/18 12:52 12/25/18 12:52 Exam: Vitals: Reviewed General: Alert and oriented x4. In mild distress due to generalized weakness Skin: Normal color, no rash, no lesions. HEENT: Dry mucus membrane, EOM, pupils equal, round and reactive. Cardiovascular: RRR, normal S1 & S2, no rubs, murmurs or gallops. Lungs: CTA b/l, no wheezes or crackles. Abdomen: Obese, soft, non-tender, no rigidity. Extremities: 2+ edema in the lower extr b/l. Neurological: No focal neurological abnormalities. Rest of the physical exam is non contributory Internal Med - H&P Results - Labs CBC & Chem 7: 12/25/18 13:10 12/25/18 13:10 - Assessment and Plan (1) GI bleed Current Visit: Yes Status: Acute Assessment and plan: Possible secondary to PUD. patient with a Hx of gastric ulcer s/p cauterization 12/09/18. Plan started on PPIs/IV BID and anti-emetics type and screen will transfuse 1 unit of PRBCs re-check H&H one hour post transfusion GI consulted NPO accu-checks Q6HRs plus lispro low dose sliding scale. CTA abdomen and pelvis ordered Qualifiers: GI bleed type/associated pathology: gastric ulcer Qualified Code(s): K25.4 - Chronic or unspecified gastric ulcer with hemorrhage (2) PUD (peptic ulcer disease) Current Visit: Yes Status: Acute Assessment and plan: plan of care as above. (3) Acute blood loss anemia Current Visit: No Status: Acute Assessment and plan: Plan of care as per problem #1 (4) Closed left hip fracture Current Visit: No Status: Chronic Qualifiers: Encounter type: subsequent encounter Fracture healing: with delayed healing Qualified Code(s): S72.002G - Fracture of unspecified part of neck of left femur, subsequent encounter for closed fracture with delayed healing (5) DVT (deep venous thrombosis) Current Visit: No Status: Acute Assessment and plan: venous dupplex: Impressions Acute deep venous thrombosis is present in the right brachial vein. Acute superficial venous thrombosis is present in the right cephalic and basilic veins. Normal contralateral subclavian vein. Plan: Patient on full dose anticoagulation. will hold anticoagulation due to GI bleeding. family explained about the risk and benefits of stopping medication. Qualifiers: DVT location: upper extremity Affected thrombotic vein of extremity: brachial Chronicity: acute Laterality: right Qualified Code(s): I82.621 - Acute embolism and thrombosis of deep veins of right upper extremity (6) DVT prophylaxis Current Visit: No Status: Chronic Assessment and plan: intermittent pneumatic compression for dvt prophylaxis. (7) Urinary retention Current Visit: No Status: Chronic Assessment and plan: continue with Francis catheter. (8) DM2 (diabetes mellitus, type 2) Current Visit: No Status: Chronic Assessment and plan: patient NPO. started on lispro low dose sliding scale. accu-checks Q6HRs. Qualifiers: Diabetes mellitus halfway insulin use: without halfway use Diabetes mellitus complication status: without complication Qualified Code(s): E11.9 - Type 2 diabetes mellitus without complications (9) HTN (hypertension) Current Visit: No Status: Chronic Assessment and plan: will resume metoprolol and hold furosemide, amlodine. Qualifiers: Hypertension type: essential hypertension Qualified Code(s): I10 - Essential (primary) hypertension (10) Hypothyroidism Current Visit: No Status: Chronic Assessment and plan: will resume home dose of levofloxacin. Qualifiers: Hypothyroidism type: acquired Qualified Code(s): E03.9 - Hypothyroidism, unspecified (11) Dehydration Current Visit: Yes Status: Acute Assessment and plan: due to poor oral intake and frequent loose stool. started on IV hydration. (12) Hyponatremia Current Visit: Yes Status: Acute Assessment and plan: patient with chronic hyponatremia. with no neurological abnormalities. started on 0.9NS@75ml/hr (13) Hypokalemia Current Visit: Yes Status: Acute Assessment and plan: possible due to GI lost. electrolyte replaced. - Time Spent With Patient Total time spent is greater than 50% in coordination of care (as documented) at patient's floor/unit and/or counseling patient: Greater than 35 minutes (45)
[2018-12-25] MEDS ORDERED: 0.9 % Sodium Chloride 1,000 ML ONE (14:07)
[2018-12-25 14:09] LABS: BUN/Creatinine Ratio 30 (6-26); Blood Urea Nitrogen 24 mg/dL (8-23); Calcium 7.7 mg/dL (8.6-10.3); Carbon Dioxide 21 mEq/L (23-29); Chloride 97 mEq/L (98-107); Glucose 202 mg/dL (70-105); Osmolality,Calculated 276 (280-300); Potassium 3.2 mEq/L (3.5-5.1); Sodium 128 mEq/L (136-145); eGFR For African Americans > 60 (> 60); eGFR For Non-African Americans > 60 (> 60)
[2018-12-25] MEDS: Pantoprazole 40 MG VIAL IVP SCH ×2 (14:11→18:52)
[2018-12-25] MEDS ORDERED: 0.9 % Sodium Chloride 250 ML IVC SCH (14:15)
[2018-12-25 14:21] LABS: Magnesium 1.5 mg/dL (1.6-2.6); Phosphorous 2.4 mg/dL (2.7-4.5)
[2018-12-25] MEDS: 0.9 % Sodium Chloride 1,000 ML IVC SCH (14:25)
[2018-12-25 15:16] LABS: Albumin 2.5 g/dL (3.5-5.7); Albumin/Globulin Ratio 0.8 (1.1-2.2); Bilirubin,Direct 0.3 mg/dL (0.0-0.2); Bilirubin,Indirect 0.6 mg/dL (0.0-1.2); Bilirubin,Total 0.9 mg/dL (0.3-1.0); Globulin 3.3 g/dL (2.4-3.5); Total Protein 5.8 g/dL (6.4-8.9)
[2018-12-25] MEDS: *HR* HYDROcodone/Acet 5/325 mg TABLET PO PRN (16:10)
[2018-12-25] MEDS: Sucralfate 1 GM TABLET PO SCH ×2 (16:10→21:26)
[2018-12-25] MEDS: Insulin LISPRO 300 UNITS/3 ML VIAL SQ SCH ×2 (18:58→23:56)
[2018-12-26] MEDS: Insulin LISPRO 300 UNITS/3 ML VIAL SQ SCH ×3 (06:00→17:39)
[2018-12-26] MEDS: Pantoprazole 40 MG VIAL IVP SCH ×2 (06:10→17:39)
[2018-12-26] MEDS: Levothyroxine 25 MCG TABLET PO SCH (06:11)
[2018-12-26 08:21] LABS: BUN/Creatinine Ratio 26 (6-26); Blood Urea Nitrogen 17 mg/dL (8-23); Calcium 7.9 mg/dL (8.6-10.3); Carbon Dioxide 25 mEq/L (23-29); Chloride 97 mEq/L (98-107); Glucose 114 mg/dL (70-105); Magnesium 1.4 mg/dL (1.6-2.6); Osmolality,Calculated 274 (280-300); Potassium 3.3 mEq/L (3.5-5.1); Sodium 131 mEq/L (136-145); eGFR For African Americans > 60 (> 60); eGFR For Non-African Americans > 60 (> 60)
[2018-12-26 08:23] LABS: Hematocrit 26.5 % (35.3-44.9); Mean Corpuscular Hemoglobin 28.8 pg (28.0-33.3); Mean Corpuscular Volume 84.9 fL (83.0-100.0); Mean Platelet Volume 10.1 fL (9.4-12.4); Platelet Count 389 K/mcL (140-400); Red Blood Count 3.12 M/mcL (3.82-4.97); White Blood Count 4.9 K/mcL (4.3-11.1)
[2018-12-26] MEDS: Sucralfate 1 GM TABLET PO SCH ×4 (08:24→21:11)
[2018-12-26] MEDS: Metoprolol XL (24 HR) Succ 25 MG TAB.ER.24H PO SCH (08:24)
[2018-12-26 09:03] LABS: % Iron Saturation 14 % (15-50); Iron 29 mcg/dL (50-170); Transferrin 151 mg/dL (203-362)
[2018-12-26 09:21] LABS: Ferritin 175 ng/mL (10-120)
--- NOTE | 2018-12-26 09:37 | Gastroenterology Consult Note ---
<Willian Alvarado - Last Filed: 12/26/18 15:12> Date of Encounter: 12/26/18 Time of Encounter: 10:22 - Assessment and plan (1) GI bleed Current Visit: Yes Status: Acute Assessment and plan: -patient was transferred from [place] to [facility] for GI bleed. -she is s/p intrmedullary nailing of left hip/femur on 12/04/18 and was in the rehab. -had an episode of NSTEMI and was in ICU about 3 weeks ago, wash discharged back to the rehab on bb, and ASA -Patient's CT of the abdomen/pelvis dod not show nay evidence of active GI hemorrhage -She has a Hx of gastric ulcer andis s/p cauterization on on 12/09 -currently on day 1 of PPI - no prior Hx of any EGD or colonscopy. - will hold aspirin and LMWH - current NPO for endoscopy . - Time Spent With Patient Total time spent is greater than 50% in coordination of care (as documented) at patient's floor/unit and/or counseling patient: GI History of Present Illness - Data of Consult Requesting Physician: Eddie Morris MD - Consult Narrative History of present illness: Ms. Nixon is a 87 year old female past medical history of diabetes, HTN, hypothyrdism, CAD with recent NSTEMI (12/09/18) , peptic ulcer disease is stat us post cauterization on , the femoral fracture, right upper extremity DVT on full dose anti-coagulation, left humeral fracture who was transferred to [facility] due to bloody stool. Gastrentorology was counseled for GI bleeding. Initial workup showed patient's hemoglobin was 7.1, K : 3.2, Na: 128 . She was seen by gastroenterology not too long ago here at the [facility] 12/14/18 for elevated liver enzymes likely secondary to shock liver due to cardiac arrest, gastric ulcer and anemia with hemoglobin of 7 on admission. Ever since the admission patient has been transfused to 1 unit of packed red blood cells and no her most recent hemoglobin has bumped up from 7.[address] Abdomen showed no evidence of any active GI hemorrhage. Patient denies any prior hx of Crohn's, UC , or AVMs, never had a colonoscopy or endoscopy before. Past Med Surg Social Fam HX - Past Medical History Medical history: arthritis, coronary artery disease, DVT, diabetes, GI bleed, hypertension, thyroid disease Psychiatric history: no psych history - Past Surgical History Surgical History: orthopedic, other - Social History Smoking Status: Never smoker Smokeless Tobacco Status: No Alcohol use: none Drug use: none - Family History Son Adopted: No Family Member Ethnicity: Non- Living Status: Still Living Hx Family Cardiac Disorders: No Hx Family Respiratory Disorders: No Hx Family Cancer: No Hx Family GI Disorders: No Hx Family Endocrine Disorder: No Hx Family Neuromuscular Disorders: No Hx Family Neurologic Disorders: No Hx Family HEENT Disorders: No Hx Family Autoimmune Disorders: No Review of Systems: 10 point review of systems is otherwise negative except as mentioned above - Constitutional Vitals: Temp Pulse Resp BP Pulse Ox 98.7 F 83 18 142/72 94 12/26/18 06:58 12/26/18 06:58 12/26/18 06:58 12/26/18 06:58 12/26/18 06:58 Exam: Gen.: Vitals noted. No acute distress. Alert, awake and oriented * [address], place, and time, well developed, well-nourished resting comfortably in bed. Pleasant. HEENT: oropharynx clear, Normocephalic, atraumatic, MMM Neck: supple, no JVD, no lymphadenopathy, no carotid bruit. Cardiac: RRR, no murmur, +S1/S2, No BLE edema, PMI non-displaced Pulmonary: CTA bilaterally, no wheezes, rales or rhonchi, equal chest expansion, unlabored breathing Abdomen: soft, nontender, BS noted, no guarding, undistended. No organomegaly, no pulsatile masses, Skin: warm and dry, no visible lesions. Feels warm, clammy, no rashes, no lesions, no erythema MSK: ROM not assessed. no joint swelling noted, gait not assessed while in bed. Non tender calf or clubbing, no cyanosis/clubbing/ or edema Neuro: A&O, moves all extremities, no focal deficits, sensation intact Psych: Appropriate mood and behavior, normal speech. - Respiratory Respiratory exam: Present: CTAB - GI/Abdominal GI/Abdominal exam: Present: soft, no peritoneal signs Results - Labs CBC & Chem 7: 12/26/18 07:41 12/26/18 07:41 Labs: Last Result 12/25/18 12/26/18 13:10 07:41 Calcium 7.7 L 7.9 L Iron 29 L % Saturation 14 L Transferrin 151 L Ferritin 175 H Entire Visit 12/25/18 12/26/18 13:10 07:41 Hgb 9.0 L D Hct 26.5 L Ferritin 175 H - Impressions Impressions Chest X-Ray 12/25/18 14:55 IMPRESSION: Left lower lobe retrocardiac atelectasis versus pneumonia. No portable chest x-ray evidence of acute cardiopulmonary process elsewhere. D/ / Dudley Stephen MD / Dudley Stephen MD Interpreting Provider: Dudley Stephen MD Abdomen/Pelvis CTA 12/25/18 21:43 IMPRESSION: CTA of the abdomen and pelvis demonstrates no active GI hemorrhage. 4 x 8 cm hematoma, left iliacus muscle appears acute but without active bleeding or current contrast extravasation. Diverticulosis greatest in the sigmoid colon. 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 Moderate edema or infiltration throughout the deep and superficial subcutaneous fat greater in the lower lateral abdominal wall and pelvis and greater to the left and right. Mild gallbladder distention but without stones or significant inflammatory change. The findings were sent to the Radiology Results Communication [facility] at 10:01 pm on 12/25/2018to be communicated to a licensed caregiver. D/ / Dannie Patton MD / Dannie Patton MD Interpreting Provider: Dannie Patton MD Consult Discharge Plan - Plan Referrals: NONE,PCP [Primary Care Provider] - <Florence Holder - Last Filed: 12/26/18 17:41> Date of Encounter: 12/26/18 Time of Encounter: 13:00 - Time Spent With Patient Total time spent is greater than 50% in coordination of care (as documented) at patient's floor/unit and/or counseling patient: GI History of Present Illness - Data of Consult Requesting Physician: Eddie Morris MD - Consult Narrative History of present illness: Ms. Nixon is a 87 year old female - Constitutional Vitals: Temp Pulse Resp BP Pulse Ox 98.9 F 78 18 129/71 94 12/26/18 15:39 12/26/18 15:39 12/26/18 15:39 12/26/18 15:39 12/26/18 15:39 Results - Labs CBC & Chem 7: 12/26/18 07:41 12/26/18 07:41 Labs: Last Result 12/25/18 12/26/18 12/26/18 13:10 07:41 08:51 Calcium 7.7 L 7.9 L Iron 29 L % Saturation 14 L Transferrin 151 L Ferritin 175 H Vitamin B12 > 1500 H Folate 8.5 Entire Visit 12/25/18 12/26/18 12/26/18 13:10 07:41 08:51 Hgb 9.0 L D Hct 26.5 L Ferritin 175 H Folate 8.5 - Impressions Impressions Abdomen/Pelvis CTA 12/25/18 21:43 IMPRESSION: CTA of the abdomen and pelvis demonstrates no active GI hemorrhage. 4 x 8 cm hematoma, left iliacus muscle appears acute but without active bleeding or current contrast extravasation. Diverticulosis greatest in the sigmoid colon. 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 Moderate edema or infiltration throughout the deep and superficial subcutaneous fat greater in the lower lateral abdominal wall and pelvis and greater to the left and right. Mild gallbladder distention but without stones or significant inflammatory change. The findings were sent to the Radiology Results Communication Center at 10:01 pm on 12/25/2018to be communicated to a licensed caregiver. D/ / Dannie Patton MD / Dannie Patton MD Interpreting Provider: Dannie Patton MD - Attending Attestation I examined this patient and my medical decision-making was reviewed with the Resident Physician. I agree with the documented findings, disposition and treatment plan as described except to the extent set forth below. Pt seen. No abd pain. o/e Abd soft A; pt with LGI bleed/anemia. Hx of gastric ulcer Rec: EGD if negative then colon
[2018-12-26 09:52] LABS: Folate 8.5 ng/mL (3.0-16.0)
[2018-12-26 09:56] LABS: Vitamin B12 > 1500 pg/mL (250-1100)
[2018-12-26] MEDS: *HR* HYDROcodone/Acet 5/325 mg TABLET PO PRN ×3 (10:58→21:11)
[2018-12-26] MEDS: 0.9 % Sodium Chloride 1,000 ML IVC SCH (10:59)
[2018-12-26] MEDS ORDERED: *HR* Propofol 200 MG/20 ML VIAL IVP ONE (12:31)
[2018-12-26] MEDS ORDERED: Lidocaine -MPF 2% 2 ML VIAL ONE (12:31)
--- NOTE | 2018-12-26 13:38 | Anesthesia Evaluation PreOp ---
Date of Encounter: 12/26/18 Time of Encounter: 13:36 - Past History Planned Operation: EGD Cardiac History: [place] (recent NSTEMI), HTN, Hyperlipidemia, Other (CAD, DVT on anticoag) Pulmonary History: Denies Any Significant HX [facility] History: Denies Any Significant HX Other Medical History: Diabetes Type II, Thyroid, Other (PUD) Anesthesia History: No Prior Anesthetic Complications, Past Anesthesia (IM nail left hip 12-20) Alcohol Use: none Drug use: none Medications and Allergies Atorvastatin [Lipitor] 40 mg PO HS 12/03/18 [History] Glimepiride [Amaryl] 4 mg PO DAILY 12/03/18 [History] Levothyroxine [Synthroid] 25 mcg PO 0630 12/03/18 [History] Metoprolol Succinate [Toprol Xl] 50 mg PO DAILY 12/03/18 [History] Ramipril [Altace] 10 mg PO DAILY 12/03/18 [History] Aspirin 81 mg PO DAILY tab.chew 12/14/18 [Rx] Enoxaparin [Lovenox] 90 mg SQ BID syringe 12/14/18 [Rx] Furosemide [Lasix] 20 mg PO DAILY 30 Days #30 tablet 12/14/18 [Rx] HYDROcodone/Acet 5/325 mg [[place] 5-325 mg] 1 tab PO Q4H PRN 3 Days #12 tablet 12/14/18 [Rx] Pantoprazole Sodium 40 mg PO DAILY 30 Days #30 tablet. 12/14/18 [Rx] Potassium Chloride 8 meq PO DAILY 30 Days #30 capsule.er 12/14/18 [Rx] Sucralfate [Carafate] 1 gm PO QIDAC tablet 12/14/18 [Rx] amLODIPine [Norvasc] 10 mg PO DAILY tablet 12/14/18 [Rx] Allergy/AdvReac Type Severity Reaction Status Date / Time celecoxib [From Celebrex] Allergy Hives Verified 12/04/18 10:49 codeine Allergy Hives Verified 12/04/18 10:49 - Meds/Allergy Pre-op Review Medications Reviewed: Yes Allergies Reviewed: Yes Beta Blockers on Current Med List: Yes If Beta Blockers taken, Date/Time (Last Dose taken): today 823 Anesthesia Results - Labs 12/26/18 07:41 12/26/18 07:41 Anesthesia Exam Selected Entries 12/26/18 13:35 Temperature 98.3 F Pulse Rate 87 Respiratory Rate 18 Blood Pressure 127/56 O2 Sat by Pulse Oximetry 95 Weight: 89kg - HEENT Pupil (Motor): EOMI Mallampati: II Teeth: Edentulous Oral Opening: Greater than 3 - [facility] LOC: Oriented [facility] Motor: Normal RUE, Normal LUE, Normal RLE, Normal LLE, Normal Face [facility] Sensory: Normal: RUE, LUE, RLE, LLE, Face - Cardiac Rhythm: Regular Murmur: None - Pulmonary Breath Sounds: bilateral Clear Respiratory Effort: Symmetrical Anesthesia Assess/Plan ASA Score: 4 Level of consciousness: Cooperative Anesthetic Plan: MAC Monitoring Plan: Standard Monitors Recovery Plan: Other
--- NOTE | 2018-12-26 14:53 | Internal Med Progress Note ---
Hospitalist Progress Note - Encounter Date of Encounter: 12/26/18 Time of Encounter: 14:49 - Subjective Interval History: Patient discussed with family at bedside. Hemoglobin stable. Going for EGD today. - Exam Vitals: Temp Pulse Resp BP Pulse Ox 98.3 F 87 18 127/56 95 12/26/18 13:35 12/26/18 13:35 12/26/18 13:35 12/26/18 13:35 12/26/18 13:35 Exam: General: Ill-appearing and in no acute distress HEENT: No erythema of posterior pharynx. No exudates. Lymphatics: No mandibular or cervical lymphadenopathy Cardiovascular: RRR. No murmurs. No chest wall tenderness. Lungs: Clear to auscelltation bilaterally. Regular chest rise. Abdomen: Non-tender. No rebound or gaurding. Nl bowel sounds. Extremities: No edema. 2+ pulses radial and pedal pulses Skin: No rahses, abrasions, or contusions. Nl cap refill. Psych: Nl attention. A&Ox3 Neuro: returns clerk II-XII intact. 5/5 strength. Sensation to light touch and pinprick intact. - Assessment and Plan (1) GI bleed Current Visit: Yes Status: Acute Assessment and Plan: Patient with recent complex hospital stay in which she was started on aspirin for cardiac event and LMWH for acute right upper extremity DVT presents with GI bleeding. -Recent hospital stays for L hip fracture and cardiac arrest: During stay, had NSTEMI but not thought to be demand related Given this, we will discuss with family risks and benefits of discontinuing aspirin use indefinitely Had GI bleed secondary to a gastric ulcer status post cauterization 12/09/18. Has been on PPI Had right upper extremity DVT and on LMWH for this. Also on LMWH after recent hip fx. UE DVTs have lower risk of PE than LEs -Hemoglobin stable overnight -GI has seen patient and will bring her for EGD today -Plan for future: Likely DC aspirin indefinitely. May discharge on prophy dose of LMWH and increase this to full dose in 1 month after giving ulcer time to heal PLAN: - EGD today - PPI IV bid and sucralfate - HOLD ASA and LMWH - Trend H/H (2) PUD (peptic ulcer disease) Current Visit: Yes Status: Acute Assessment and Plan: Had GI bleed secondary to a gastric ulcer status post cauterization 12/09/18. Has been on PPI (3) Acute blood loss anemia Current Visit: No Status: Acute Assessment and Plan: Secondary to gastric bleeding. (4) Cardiac arrest Current Visit: No Status: Acute Assessment and Plan: Etiology unclear. Occurred a few days following acute fracture events. Cardiology consulted during previous hospital admission and not thought to be related to coronary artery disease. (5) DVT (deep venous thrombosis) Current Visit: No Status: Acute Assessment and Plan: Discovered in right upper extremity and has been on Lovenox since last hospital stay. - Hold Lovenox in setting of GI bleed - We will need to weigh risks and benefits of discharging patient on Lovenox (6) Closed left hip fracture Current Visit: No Status: Chronic Assessment and Plan: Had a fall resulting in Displaced, comminuted peritrochanteric fracture left proximal femur s/p Intramedullary nailing left hip/femur by Dr. Baldwin 12/04/18. Has an appointment to follow-up this week but will likely missed appointment given she is in the hospital. - We will connect with Dr. Baldwin to see if he would like to see patient in the hospital or has any further recommendations (7) Left humeral fracture Current Visit: No Status: Acute DVT Prophylaxis: SCDs Internal Medicine: Result - Labs CBC & Chem 7: 12/26/18 07:41 12/26/18 07:41 Labs: Short CBC 12/26/18 Range/Units 07:41 WBC 4.9 (4.3-11.1) K/mcL Hgb 9.0 L D (11.5-15.4) g/dL Hct 26.5 L (35.3-44.9) % Plt Count 389 (140-400) K/mcL BMP 12/25/18 12/26/18 13:10 07:41 Sodium 128 L 131 L Potassium 3.2 L 3.3 L Chloride 97 L 97 L Carbon Dioxide 21 L 25 BUN 24 H 17 Creatinine 0.79 0.65 Glucose 202 H 114 H Calcium 7.7 L 7.9 L Liver Function 12/25/18 Range/Units 14:29 Total Bilirubin 0.9 (0.3-1.0) mg/dL Direct Bilirubin 0.3 H (0.0-0.2) mg/dL AST 18 (13-39) Units/L ALT 20 (7-52) Units/L Alkaline Phosphatase 117 H (34-104) Units/L Albumin 2.5 L (3.5-5.7) g/dL - Impressions Impressions Chest X-Ray 12/25/18 14:55 IMPRESSION: Left lower lobe retrocardiac atelectasis versus pneumonia. No portable chest x-ray evidence of acute cardiopulmonary process elsewhere. D/ / Dudley Stephen MD / Dudley Stephen MD Interpreting Provider: Dudley Stephen MD Abdomen/Pelvis CTA 12/25/18 21:43 IMPRESSION: CTA of the abdomen and pelvis demonstrates no active GI hemorrhage. 4 x 8 cm hematoma, left iliacus muscle appears acute but without active bleeding or current contrast extravasation. Diverticulosis greatest in the sigmoid colon. 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 Moderate edema or infiltration throughout the deep and superficial subcutaneous fat greater in the lower lateral abdominal wall and pelvis and greater to the left and right. Mild gallbladder distention but without stones or significant inflammatory change. The findings were sent to the [facility] at 10:01 pm on 12/25/2018to be communicated to a licensed caregiver. D/ / Dannie Patton MD / Dannie Patton MD Interpreting Provider: Dannie Patton MD Consult Discharge Plan - Plan Referrals: NONE,PCP [Primary Care Provider] - _ (1) GI bleed Qualifiers: GI bleed type/associated pathology: gastric ulcer Qualified Code(s): K25.4 - Chronic or unspecified gastric ulcer with hemorrhage (5) DVT (deep venous thrombosis) Qualifiers: DVT location: upper extremity Affected thrombotic vein of extremity: brachial Chronicity: acute Laterality: right Qualified Code(s): I82.621 - Acute embolism and thrombosis of deep veins of right upper extremity (6) Closed left hip fracture Qualifiers: Encounter type: subsequent encounter Fracture healing: with delayed healing Qualified Code(s): S72.002G - Fracture of unspecified part of neck of left femur, subsequent encounter for closed fracture with delayed healing (7) Left humeral fracture Qualifiers: Encounter type: subsequent encounter Humerus Location: greater tuberosity Fracture type: closed Fracture alignment: nondisplaced Fracture healing: with delayed healing Qualified Code(s): S42.255G - Nondisplaced fracture of greater tuberosity of left humerus, subsequent encounter for fracture with delayed healing
[2018-12-26] MEDS ORDERED: SODIUM CHLORIDE/NAHCO3/KCL/PEG 4,000 ML SOLN.RECON PO ONE (17:00)
--- NOTE | 2018-12-26 20:53 | Orthopedics Progress Note ---
Date of Encounter: 12/26/18 Time of Encounter: 20:51 Subjective Principal diagnosis: Peritrochanteric fracture left femur, status post intramedullary nailing Interval history: Patient underwent intramedullary nailing of a complex peritrochanteric fracture of the left proximal femur on 12/04/18. The patient was scheduled for office follow-up this Monday but not anticipated being able to maintain that follow-up appointment. Patient also was noted to have a nondisplaced fracture of the left greater tuberosity of the humerus. Would recommend recheck x-rays of the left shoulder and the left femur. Further recommendations will be made pending the results of those studies. Objective Vital signs: Vital Signs Temp Pulse Resp BP Pulse Ox 12/26/18 20:04 98.1 F 76 17 127/77 95 12/26/18 15:39 98.9 F 78 18 129/71 94 12/26/18 13:35 98.3 F 87 18 127/56 95 12/26/18 11:10 98.6 F 84 17 144/73 94 12/26/18 06:58 98.7 F 83 18 142/72 94 12/26/18 03:46 98 F 71 17 145/65 96 12/25/18 23:21 97.9 F 75 18 150/70 97 12/25/18 20:59 97.5 F L 85 17 147/73 96 Intake and Output 12/26/18 12/26/18 12/26/18 07:59 15:59 23:59 Intake Total 1100 / 1340 0 / 1340 240 / 1340 Output Total 1400 / 2600 1200 / 2600 Balance -300 / -1260 -1200 / -1260 240 / -1260 Intake: IV Fluids 1100 / 1100 0.9 % Sodium Chloride 1,000 ML 1000 / 1000 @ 75 mls/hr IVC .[id number] [facility] Rx #:[id number] Potassium Chloride 10 mEq/100mL 100 / 100 10 meq In 100 ml @ 100 mls/hr IVPB Q1H [facility] Rx#:[id number] Oral 0 / 240 240 / 240 Output: Catheter 1400 / 2600 1200 / 2600 Other: Meal NPO Dinner Percent of Meal Consumed 0% 50% Stool Size Moderate Small Small Stool Consistency soft loose loose liquid soft Stool Color Brown Brown Brown # Bowel Movement Diapers 1 1 Blood Glucose* 114 129 186 - Labs CBC & BMP: 12/26/18 07:41 12/26/18 07:41 Labs: Abnormal lab results RBC 3.12 M/mcL (3.82-4.97) L 12/26/18 07:41 Hgb 9.0 g/dL (11.5-15.4) L D 12/26/18 07:41 Hct 26.5 % (35.3-44.9) L 12/26/18 07:41 RDW 17.0 % (11.5-14.5) H 12/26/18 07:41 Sodium 131 mEq/L (136-145) L 12/26/18 07:41 Potassium 3.3 mEq/L (3.5-5.1) L 12/26/18 07:41 Chloride 97 mEq/L (98-107) L 12/26/18 07:41 Carbon Dioxide 21 mEq/L (23-29) L 12/25/18 13:10 BUN 24 mg/dL (8-23) H 12/25/18 13:10 BUN/Creatinine Ratio 30 (6-26) H 12/25/18 13:10 Glucose 114 mg/dL (70-105) H 12/26/18 07:41 POC Glucose 141 mg/dL (70-99) H 12/25/18 23:19 Calculated Osmolality 274 (280-300) L 12/26/18 07:41 Calcium 7.9 mg/dL (8.6-10.3) L 12/26/18 07:41 Phosphorus 2.4 mg/dL (2.7-4.5) L 12/25/18 13:10 Magnesium 1.4 mg/dL (1.6-2.6) L 12/26/18 07:41 Iron 29 mcg/dL (50-170) L 12/25/18 13:10 % Saturation 14 % (15-50) L 12/25/18 13:10 Transferrin 151 mg/dL (203-362) L 12/25/18 13:10 Ferritin 175 ng/mL (10-120) H 12/25/18 13:10 Direct Bilirubin 0.3 mg/dL (0.0-0.2) H 12/25/18 14:29 Alkaline Phosphatase 117 Units/L (34-104) H 12/25/18 14:29 Serum Total Protein 5.8 g/dL (6.4-8.9) L 12/25/18 14:29 Albumin 2.5 g/dL (3.5-5.7) L 12/25/18 14:29 Albumin/Globulin Ratio 0.8 (1.1-2.2) L 12/25/18 14:29 Vitamin B12 > 1500 pg/mL (250-1100) H 12/26/18 08:51 Crossmatch See Detail 12/25/18 14:29 Consult Discharge Plan - Plan Referrals: NONE,PCP [Primary Care Provider] -
[2018-12-27] MEDS: Insulin LISPRO 300 UNITS/3 ML VIAL SQ SCH ×4 (00:41→19:13)
[2018-12-27 04:02] LABS: Hematocrit 31.3 % (35.3-44.9); Hemoglobin 9.9 g/dL (11.5-15.4); Mean Corpuscular HGB Conc 31.6 g/dL (31.6-35.5); Mean Corpuscular Hemoglobin 28.4 pg (28.0-33.3); Mean Corpuscular Volume 89.9 fL (83.0-100.0); Platelet Count 289 K/mcL (140-400); Red Blood Count 3.48 M/mcL (3.82-4.97); Red Cell Distribution Width 17.4 % (11.5-14.5); White Blood Count 5.6 K/mcL (4.3-11.1)
[2018-12-27 04:23] LABS: BUN/Creatinine Ratio 20 (6-26); Blood Urea Nitrogen 13 mg/dL (8-23); Carbon Dioxide 23 mEq/L (23-29); Chloride 99 mEq/L (98-107); Glucose 121 mg/dL (70-105); Osmolality,Calculated 273 (280-300); Potassium 3.4 mEq/L (3.5-5.1); Sodium 131 mEq/L (136-145); eGFR For African Americans > 60 (> 60); eGFR For Non-African Americans > 60 (> 60)
[2018-12-27] MEDS: Levothyroxine 25 MCG TABLET PO SCH (05:58)
[2018-12-27] MEDS: Pantoprazole 40 MG VIAL IVP SCH (05:58)
[2018-12-27] MEDS: Sucralfate 1 GM TABLET PO SCH ×2 (09:22→11:18)
[2018-12-27] MEDS: Metoprolol XL (24 HR) Succ 25 MG TAB.ER.24H PO SCH (09:22)
--- NOTE | 2018-12-27 12:13 | Internal Med Progress Note ---
Hospitalist Progress Note - Encounter Date of Encounter: 12/27/18 Time of Encounter: 12:10 - Subjective Interval History: Family voices frustrations the patient was left on the bedpan to long this morning and she sees got onto dressings from orthopedic procedure. Discussed this with nursing who will change the dressings after patient is back from procedure. No episodes of bleeding overnight. - Exam Vitals: Temp Pulse Resp BP Pulse Ox 99.0 F 85 18 150/74 94 12/27/18 11:15 12/27/18 11:15 12/27/18 11:15 12/27/18 11:15 12/27/18 11:15 Exam: General: Ill-appearing and in no acute distress HEENT: No erythema of posterior pharynx. No exudates. Lymphatics: No mandibular or cervical lymphadenopathy Cardiovascular: RRR. No murmurs. No chest wall tenderness. Lungs: Clear to auscelltation bilaterally. Regular chest rise. Abdomen: Non-tender. No rebound or gaurding. Nl bowel sounds. Extremities: No edema. 2+ pulses radial and pedal pulses Skin: No rahses, abrasions, or contusions. Nl cap refill. Psych: Nl attention. A&Ox3 Neuro: aircraft delivery checker II-XII intact. 5/5 strength. Sensation to light touch and pinprick intact. - Assessment and Plan (1) GI bleed Current Visit: Yes Status: Acute Assessment and Plan: Patient with recent complex hospital stay in which she was started on aspirin for cardiac event and LMWH for acute right upper extremity DVT presents with GI bleeding. -Recent hospital stays for L hip fracture and cardiac arrest: During stay, had NSTEMI but not thought to be demand related Given this, we will discuss with family risks and benefits of discontinuing aspirin use indefinitely Had GI bleed secondary to a gastric ulcer status post cauterization 12/09/18. Has been on PPI EGD yesterday without any signs of bleeding and appears that ulcers have healed Had right upper extremity DVT and on LMWH for this. Also on LMWH after recent hip fx. UE DVTs have lower risk of PE than LEs -Hemoglobin stable overnight. Going for colonoscopy today -Plan for future: Likely DC aspirin indefinitely. May discharge on prophy dose of LMWH and increase this to full dose in 1 month after giving ulcer time to heal PLAN: - Colonoscopy today - PPI IV bid --> oral and sucralfate - HOLD ASA and LMWH - Trend H/H (2) PUD (peptic ulcer disease) Current Visit: Yes Status: Acute Assessment and Plan: Had GI bleed secondary to a gastric ulcer status post cauterization 12/09/18. Has been on PPI (3) Acute blood loss anemia Current Visit: No Status: Acute Assessment and Plan: Secondary to gastric bleeding. (4) Cardiac arrest Current Visit: No Status: Acute Assessment and Plan: Etiology unclear. Occurred a few days following acute fracture events. Cardiology consulted during previous hospital admission and not thought to be related to coronary artery disease. (5) DVT (deep venous thrombosis) Current Visit: No Status: Acute Assessment and Plan: Discovered in right upper extremity and has been on Lovenox since last hospital stay. - Hold Lovenox in setting of GI bleed - We will need to weigh risks and benefits of discharging patient on Lovenox (6) Closed left hip fracture Current Visit: No Status: Chronic Assessment and Plan: Had a fall resulting in Displaced, comminuted peritrochanteric fracture left proximal femur s/p Intramedullary nailing left hip/femur by Dr. Baldwin 12/04/18. Has an appointment to follow-up this week but will likely missed appointment given she is in the hospital. - Contacted Dr. Baldwin - recommends x-ray of hip and left upper extremity and will see patient (7) Left humeral fracture Current Visit: No Status: Acute DVT Prophylaxis: SCDs Internal Medicine: Result - Labs CBC & Chem 7: 12/27/18 03:32 12/27/18 03:32 Labs: Short CBC 12/27/18 Range/Units 03:32 WBC 5.6 (4.3-11.1) K/mcL Hgb 9.9 L (11.5-15.4) g/dL Hct 31.3 L (35.3-44.9) % Plt Count 289 (140-400) K/mcL BMP 12/27/18 03:32 Sodium 131 L Potassium 3.4 L Chloride 99 Carbon Dioxide 23 BUN 13 Creatinine 0.64 Glucose 121 H Calcium 8.0 L Consult Discharge Plan - Plan Referrals: NONE,PCP [Primary Care Provider] - (1) GI bleed Qualifiers: GI bleed type/associated pathology: gastric ulcer Qualified Code(s): K25.4 - Chronic or unspecified gastric ulcer with hemorrhage (5) DVT (deep venous thrombosis) Qualifiers: DVT location: upper extremity Affected thrombotic vein of extremity: brachial Chronicity: acute Laterality: right Qualified Code(s): I82.621 - Acute embolism and thrombosis of deep veins of right upper extremity (6) Closed left hip fracture Qualifiers: Encounter type: subsequent encounter Fracture healing: with delayed healing Qualified Code(s): S72.002G - Fracture of unspecified part of neck of left femur, subsequent encounter for closed fracture with delayed healing (7) Left humeral fracture Qualifiers: Encounter type: subsequent encounter Humerus Location: greater tuberosity Fracture type: closed Fracture alignment: nondisplaced Fracture healing: with delayed healing Qualified Code(s): S42.255G - Nondisplaced fracture of greater tuberosity of left humerus, subsequent encounter for fracture with delayed healing
[2018-12-27] MEDS ORDERED: Lidocaine -MPF 2% 2 ML VIAL ONE (12:40)
[2018-12-27] MEDS ORDERED: Propofol 500 MG/50 ML INFUS..BTL ONE (12:40)
[2018-12-27] MEDS: *HR* HYDROcodone/Acet 5/325 mg TABLET PO PRN (18:08)
[2018-12-27] MEDS: [UNRECOGNIZED DRUG - OTHER] RC SCH ×2 (18:09→22:15)
[2018-12-27] MEDS: SUCRALFATE RC SCH ×2 (18:09→22:15)
--- NOTE | 2018-12-27 19:29 | Orthopedics Progress Note ---
Date of Encounter: 12/27/18 Time of Encounter: 19:25 Subjective Principal diagnosis: Peritrochanteric fracture left femur, status post intramedullary nailing Interval history: Patient underwent intramedullary nailing of a complex peritrochanteric fracture of the left proximal femur on 12/04/18. The patient was scheduled for office follow-up this Monday but not anticipated being able to maintain that follow-up appointment. Patient also was noted to have a nondisplaced fracture of the left greater tuberosity of the humerus. Would recommend recheck x-rays of the left shoulder and the left femur. Further recommendations will be made pending the results of those studies. 12/27/2018. Patient is feeling fairly well. Little hip and leg pain. Shoulder still sore. Leg dressings clean dry and intact. Dressings recently changed. X-rays of the left femur are reviewed. These reveal stable and well aligned peritrochanteric fracture of the left proximal femur with a long, locked femoral nail. X-rays of left shoulder revealed that the fracture fragment off the g reater tuberosity has retracted somewhat medial, suspect this is related to rotator cuff pole. Impression: 1. Status post IM nailing left proximal femur fracture 2. Left greater tuberosity fracture Recommendation: Patient can be weightbearing as tolerated on the left lower extremity. Left shoulder can begin range of motion as tolerated with the sling being used for comfort only. The left leg incisions can being maintained with a Bioclusive dressing. If there is no drainage for 2-3 days secondary removed entirely. Patient will need follow-up with me in about 6 weeks' time unless some concerns arise. Objective Vital signs: Vital Signs Temp Pulse Resp BP Pulse Ox 12/27/18 18:31 98.6 F 92 16 140/75 94 12/27/18 16:24 98.8 F 88 18 148/70 93 12/27/18 13:04 98.2 F 93 18 193/64 94 12/27/18 11:15 99.0 F 85 18 150/74 94 12/27/18 07:29 98.5 F 96 18 152/73 94 12/27/18 04:08 98 F 76 17 130/66 94 12/26/18 23:59 97.8 F 79 17 125/61 93 12/26/18 20:04 98.1 F 76 17 127/77 95 Intake and Output 12/27/18 12/27/18 12/27/18 07:59 15:59 23:59 Intake Total 0 / 240 240 / 240 Output Total 700 / 1300 600 / 1300 Balance -700 / -1060 -600 / -1060 240 / -1060 Intake: Oral 0 / 240 240 / 240 Output: Catheter 700 / 1300 600 / 1300 Other: Meal NPO Dinner Percent of Meal Consumed 0% 90% Stool Size Moderate Small Stool Consistency liquid liquid Stool Color Brown Brown # Voids 1 # Bowel Movements 1 # Bowel Movement Diapers 1 Blood Glucose* 121 138 141 - Labs CBC & BMP: 12/27/18 03:32 12/27/18 03:32 Labs: Abnormal lab results RBC 3.48 M/mcL (3.82-4.97) L 12/27/18 03:32 Hgb 9.9 g/dL (11.5-15.4) L 12/27/18 03:32 Hct 31.3 % (35.3-44.9) L 12/27/18 03:32 RDW 17.4 % (11.5-14.5) H 12/27/18 03:32 Sodium 131 mEq/L (136-145) L 12/27/18 03:32 Potassium 3.4 mEq/L (3.5-5.1) L 12/27/18 03:32 Chloride 97 mEq/L (98-107) L 12/26/18 07:41 Carbon Dioxide 21 mEq/L (23-29) L 12/25/18 13:10 BUN 24 mg/dL (8-23) H 12/25/18 13:10 BUN/Creatinine Ratio 30 (6-26) H 12/25/18 13:10 Glucose 121 mg/dL (70-105) H 12/27/18 03:32 POC Glucose 141 mg/dL (70-99) H 12/27/18 17:13 Calculated Osmolality 273 (280-300) L 12/27/18 03:32 Calcium 8.0 mg/dL (8.6-10.3) L 12/27/18 03:32 Phosphorus 2.4 mg/dL (2.7-4.5) L 12/25/18 13:10 Magnesium 1.4 mg/dL (1.6-2.6) L 12/26/18 07:41 Iron 29 mcg/dL (50-170) L 12/25/18 13:10 % Saturation 14 % (15-50) L 12/25/18 13:10 Transferrin 151 mg/dL (203-362) L 12/25/18 13:10 Ferritin 175 ng/mL (10-120) H 12/25/18 13:10 Direct Bilirubin 0.3 mg/dL (0.0-0.2) H 12/25/18 14:29 Alkaline Phosphatase 117 Units/L (34-104) H 12/25/18 14:29 Serum Total Protein 5.8 g/dL (6.4-8.9) L 12/25/18 14:29 Albumin 2.5 g/dL (3.5-5.7) L 12/25/18 14:29 Albumin/Globulin Ratio 0.8 (1.1-2.2) L 12/25/18 14:29 Vitamin B12 > 1500 pg/mL (250-1100) H 12/26/18 08:51 Crossmatch See Detail 12/25/18 14:29 Consult Discharge Plan - Plan Referrals: NONE,PCP [Primary Care Provider] -
[2018-12-27] MEDS ORDERED: Insulin LISPRO 300 UNITS/3 ML VIAL SQ SCH (21:00)
[2018-12-27] MEDS ORDERED: *HR* OxyCODONE Immed Rel 5 MG TABLET PO ONE (21:35)
[2018-12-28 04:15] LABS: Hematocrit 25.9 % (35.3-44.9); Hemoglobin 8.4 g/dL (11.5-15.4); Mean Corpuscular HGB Conc 32.4 g/dL (31.6-35.5); Mean Corpuscular Hemoglobin 29.3 pg (28.0-33.3); Mean Corpuscular Volume 90.2 fL (83.0-100.0); Mean Platelet Volume 10.1 fL (9.4-12.4); Platelet Count 332 K/mcL (140-400); Red Blood Count 2.87 M/mcL (3.82-4.97); Red Cell Distribution Width 17.3 % (11.5-14.5); White Blood Count 5.4 K/mcL (4.3-11.1)
[2018-12-28] MEDS: Levothyroxine 25 MCG TABLET PO SCH (05:51)
[2018-12-28] MEDS: Metoprolol XL (24 HR) Succ 25 MG TAB.ER.24H PO SCH (08:29)
[2018-12-28] MEDS: [UNRECOGNIZED DRUG - OTHER] RC SCH (08:30)
[2018-12-28] MEDS: SUCRALFATE RC SCH (08:30)
[2018-12-28] MEDS: Insulin LISPRO 300 UNITS/3 ML VIAL SQ SCH ×3 (08:33→17:13)
--- NOTE | 2018-12-28 14:13 | Discharge Summary ---
Orders not resulted at time of discharge: Pending orders 12/27/18 14:34 Surgical Pathology [PTH] Routine Date of Encounter: 12/28/18 Time of Encounter: 14:07 - Discharge Diagnosis (1) GI bleed Priority: Primary Status: Acute Qualifiers: GI bleed type/associated pathology: gastric ulcer Qualified Code(s): K25.4 - Chronic or unspecified gastric ulcer with hemorrhage (2) PUD (peptic ulcer disease) Priority: Secondary Status: Acute (3) Acute blood loss anemia Priority: Secondary Status: Acute (4) Cardiac arrest Priority: Secondary Status: Acute (5) DVT (deep venous thrombosis) Priority: Secondary Status: Acute Qualifiers: DVT location: upper extremity Affected thrombotic vein of extremity: brachial Chronicity: acute Laterality: right Qualified Code(s): I82.621 - Acute embolism and thrombosis of deep veins of right upper extremity (6) Closed left hip fracture Priority: Secondary Status: Chronic Qualifiers: Encounter type: subsequent encounter Fracture healing: with delayed healing Qualified Code(s): S72.002G - Fracture of unspecified part of neck of left femur, subsequent encounter for closed fracture with delayed healing (7) Left humeral fracture Priority: Secondary Status: Acute Qualifiers: Encounter type: subsequent encounter Humerus Location: greater tuberosity Fracture type: closed Fracture alignment: nondisplaced Fracture healing: with delayed healing Qualified Code(s): S42.255G - Nondisplaced fracture of greater tuberosity of left humerus, subsequent encounter for fracture with delayed healing Hospital course: Ms. Nixon is a 88 year old female recent complex hospital stays presented with GI bleeding. -Initially admitted 12/03 for RUQ and RLE fractures after a fall. Surgically repaired by ortho and sent to SNF -Readmitted 12/08 after cardiac arrest at SNF. After prolonged ICU stay, no cause of cardiac arrest identified and again discharged to SNF During hospital stay NSTEMI but thought to be demand - a result of cardiac arrest rather than cause of it. On ASA 81mg. Also discovered to have a LUE DVT at site of previous IV and started on LMWH therapeutic 90mg bid -THIS ADMISSION: Readmitted 12/25 with melena. EGD largely wnl (although previous hx duodenal ulcers). Colonoscopy with non-bleeding stercoral ulcers, may be 2/2 fecal impaction For discharge: -Will need to take Miralax daily to prevent further fecal impaction -Will d/c ASA indefinitely given no documented hx of CAD or CVA and more risk than benefit -Will start LMWH at prophylactic dose (40mg qd) given recent hip fx Upper extremity DVTs low risk for PE If after a month stable on this, PCP can consider going back to therapeutic dose to tx DVT -Will follow-up with PCP, GI, and Ortho -Will need CBC completed by PCP at f/u appointment Discharge discussed with: patient, family - Time Spent with Patient Total time spent providing and/or coordinating discharge services: 110 minutes Time spent: Greater than 30 minutes - Discharge Medications Prescriptions: New Polyethylene Glycol 3350 [MiraLAX] 17 gm PO DAILY PRN #30 powd.pack PRN Reason: Constipation Enoxaparin [Lovenox] 40 mg SQ DAILY #30 syr Continued amLODIPine [Norvasc] 10 mg PO DAILY tablet Pantoprazole Sodium 40 mg PO DAILY 30 Days #30 tablet.dr Furosemide [Lasix] 20 mg PO DAILY 30 Days #30 tablet Potassium Chloride 8 meq PO DAILY 30 Days #30 capsule.er HYDROcodone/Acet 5/325 mg [[place] 5-325 mg] 1 tab PO Q4H PRN 3 Days #12 tablet PRN Reason: Moderate Pain Metoprolol Succinate [Toprol Xl] 50 mg PO DAILY Glimepiride [Amaryl] 4 mg PO DAILY Ramipril [Altace] 10 mg PO DAILY Atorvastatin [Lipitor] 40 mg PO HS Levothyroxine [Synthroid] 25 mcg PO 0630 Discontinued Enoxaparin [Lovenox] 90 mg SQ BID syringe Aspirin 81 mg PO DAILY tab.chew Sucralfate [Carafate] 1 gm PO QIDAC tablet Home Medications: Atorvastatin [Lipitor] 40 mg PO HS 12/03/18 [History] Glimepiride [Amaryl] 4 mg PO DAILY 12/03/18 [History] Levothyroxine [Synthroid] 25 mcg PO 0630 12/03/18 [History] Metoprolol Succinate [Toprol Xl] 50 mg PO DAILY 12/03/18 [History] Ramipril [Altace] 10 mg PO DAILY 12/03/18 [History] Furosemide [Lasix] 20 mg PO DAILY 30 Days #30 tablet 12/14/18 [Rx] HYDROcodone/Acet 5/325 mg [[place] 5-325 mg] 1 tab PO Q4H PRN 3 Days #12 tablet 12/14/18 [Rx] Pantoprazole Sodium 40 mg PO DAILY 30 Days #30 tablet. 12/14/18 [Rx] Potassium Chloride 8 meq PO DAILY 30 Days #30 capsule.er 12/14/18 [Rx] amLODIPine [Norvasc] 10 mg PO DAILY tablet 12/14/18 [Rx] Enoxaparin [Lovenox] 40 mg SQ DAILY #30 syr 12/28/18 [Rx] Polyethylene Glycol 3350 [MiraLAX] 17 gm PO DAILY PRN #30 powd.pack 12/28/18 [Rx] Allergies/Adverse Reactions: Allergy/AdvReac Type Severity Reaction Status Date / Time celecoxib [From Celebrex] Allergy Hives Verified 12/04/18 10:49 codeine Allergy Hives Verified 12/04/18 10:49 Date of admission: 12/27/18 15:28 Primary care physician: PCP NONE Consults: 12/25/18 13:02 Consult to Gastroenterology [CONS] Routine Consulting Provider: [facility] Reason for Consult: GI bleeding. Call Completed: Yes 12/25/18 13:30 Consult to Staffing Rn [CONS] Routine Reason for SW Consult: Patient is from [facility] - Constitutional Vitals: Temp Pulse Resp BP Pulse Ox 98.8 F 71 17 109/67 93 12/28/18 10:50 12/28/18 10:50 12/28/18 10:50 12/28/18 10:50 12/28/18 10:50 Exam: General: Ill-appearing and in no acute distress HEENT: No erythema of posterior pharynx. No exudates. Lymphatics: No mandibular or cervical lymphadenopathy Cardiovascular: RRR. No murmurs. No chest wall tenderness. Lungs: Clear to auscelltation bilaterally. Regular chest rise. Abdomen: Non-tender. No rebound or gaurding. Nl bowel sounds. Extremities: No edema. 2+ pulses radial and pedal pulses Skin: No rahses, abrasions, or contusions. Nl cap refill. Psych: Nl attention. A&Ox3 Neuro: road crossing guard II-XII intact. 5/5 strength. Sensation to light touch and pinprick intact. - Patient Status Disposition: Home Health Service Functional capacity at discharge: uses cane/walker - Discharge Instructions Follow Up With: Jose Baldwin DO [Non-Partnered Physician] - 02/08/19 9:00 am NONE,PCP [Primary Care Provider] - Florence Holder MD [Partnered Physician] - - Diet and Activity Activity: as per physical therapy Diet: advance to your usual diet, diabetic diet
[2018-12-28] MEDS: *HR* HYDROcodone/Acet 5/325 mg TABLET PO PRN (15:40)
--- NOTE | 2018-12-28 16:02 | Physician Discharge Referral ---
Home Health/Hosp Referral Info Transfer to: Home Health Attending Provider: Murphy Edgar MD Provider in Charge Post Discharge: PCP - Diagnosis (1) GI bleed Priority: Primary Status: Acute (2) PUD (peptic ulcer disease) Priority: Secondary Status: Acute (3) Acute blood loss anemia Priority: Secondary Status: Acute (4) Cardiac arrest Priority: Secondary Status: Acute (5) DVT (deep venous thrombosis) Priority: Secondary Status: Acute (6) Closed left hip fracture Priority: Secondary Status: Chronic (7) Left humeral fracture Priority: Secondary Status: Acute - Respiratory Orders Smoking Cessation: Smoking cessation has been advised. For more information, call the [place] Tobacco Quit Line at 7-771-EDMG-NOW. - Diet/Nutrition Diet/Nutrition Orders: No Concentrated Sweets - Activity Activity Orders: Up ad nino, Ambulate, Chair - Services Needed Following services are medically necessary services: Nursing, Home Health Aide, Physical Therapy, Occupational Therapy Other Treatments: PATIENT WILL ALSO NEED HOSPITAL BED. PATIENT REQUIRES POSITING OF THE BODY IN WAYS NOT FEASIBLE WITH AN ORDINARY BED IN ORDER TO ALLEVIATE PAIN. - Transfer Medications Prescriptions: Enoxaparin [Lovenox] 40 mg SQ DAILY #30 syr Transmission Status: Pending to [facility] Polyethylene Glycol 3350 [MiraLAX] 17 gm PO DAILY PRN #30 powd.pack PRN Reason: Constipation Transmission Status: Received by [facility] Home Medications: Atorvastatin [Lipitor] 40 mg PO HS 12/03/18 [History] Glimepiride [Amaryl] 4 mg PO DAILY 12/03/18 [History] Levothyroxine [Synthroid] 25 mcg PO 0630 12/03/18 [History] Metoprolol Succinate [Toprol Xl] 50 mg PO DAILY 12/03/18 [History] Ramipril [Altace] 10 mg PO DAILY 12/03/18 [History] Furosemide [Lasix] 20 mg PO DAILY 30 Days #30 tablet 12/14/18 [Rx] HYDROcodone/Acet 5/325 mg [[place] 5-325 mg] 1 tab PO Q4H PRN 3 Days #12 tablet 12/14/18 [Rx] Pantoprazole Sodium 40 mg PO DAILY 30 Days #30 tablet.dr 12/14/18 [Rx] Potassium Chloride 8 meq PO DAILY 30 Days #30 capsule.er 12/14/18 [Rx] amLODIPine [Norvasc] 10 mg PO DAILY tablet 12/14/18 [Rx] Enoxaparin [Lovenox] 40 mg SQ DAILY #30 syr 12/28/18 [Rx] Polyethylene Glycol 3350 [MiraLAX] 17 gm PO DAILY PRN #30 powd.pack 12/28/18 [Rx] Allergies/Adverse Reactions: Allergy/AdvReac Type Severity Reaction Status Date / Time celecoxib [From Celebrex] Allergy Hives Verified 12/04/18 10:49 codeine Allergy Hives Verified 12/04/18 10:49 Certification: Further, I certify that my clinical findings support that this patient is homebound (i.e. absences from home require considerable and taxing effort and are for medical reasons or muslim services or infrequently or short duration when for other reasons) because: Multiple recent hospital stays and multiple fractures limiting mobility Homebound Reason: Patient requires assistance of a person or device to safely leave home Attestation: My signature below is to certify that this patient is under my care and that I, or nurse practitioner, or a physician's anesthetic assistant working with me, has a [id number] encounter with this patient. Monroe Edgar MD
[2018-12-28 18:56] VITALS: BP 134/78
== END 2018-12-28 20:50 | disposition home health service (06) | DRG 378 ==
LOC: 2ANU
PROVIDERS: ADMIT Internal Medicine; ATTEND Internal Medicine
PROC: ENDOCBX (2018-12-27 14:05)

== ENCOUNTER 2019-01-02 09:13 | Inpatient (IN) ==
[2019-01-02] MEDS ORDERED: Naloxone 0.4 MG/ML INJ IVP PRN (11:56)
[2019-01-02] MEDS ORDERED: Dextrose Gel 15 GM/37.5 ML TUBE PO PRN ×2 (12:00)
[2019-01-02] MEDS ORDERED: *HR* Dextrose 50 % in Water (Syg) 50 ML SYRINGE IVP PRN (12:00)
[2019-01-02] MEDS ORDERED: D5% in Water 1,000 ML IVC PRN (12:00)
[2019-01-02] MEDS: amLODIPine 5 MG TABLET PO SCH (16:05)
[2019-01-02] MEDS: *HR* HYDROcodone/Acet 5/325 mg TABLET PO PRN ×2 (16:06→23:42)
[2019-01-02] MEDS: Metoprolol XL (24 HR) Succ 50 MG TAB.ER.24H PO SCH (16:06)
[2019-01-02] MEDS: Furosemide 20 MG TABLET PO SCH (16:07)
[2019-01-02] MEDS: *HR* Enoxaparin 40 MG/0.4 ML SYRINGE SQ SCH (16:11)
[2019-01-02] MEDS ORDERED: Insulin LISPRO 300 UNITS/3 ML VIAL SQ SCH (16:30)
[2019-01-02] MEDS: Insulin LISPRO 300 UNITS/3 ML VIAL SQ SCH (17:38)
[2019-01-02] MEDS ORDERED: Furosemide 40 MG/4 ML VIAL IVP ONE (20:00)
[2019-01-03 04:34] LABS: Basophils % 0.4 %; Eosinophils # 0.1 K/mcL (0.0-0.6); Eosinophils % 1.1 %; Hematocrit 28.8 % (35.3-44.9); Hemoglobin 9.3 g/dL (11.5-15.4); Immature Granulocytes % 0.7 % (0-4); Lymphocytes # 2.5 K/mcL (0.6-4.6); Lymphocytes % 34.3 %; Mean Corpuscular HGB Conc 32.3 g/dL (31.6-35.5); Mean Corpuscular Hemoglobin 28.8 pg (28.0-33.3); Mean Corpuscular Volume 89.2 fL (83.0-100.0); Mean Platelet Volume 9.8 fL (9.4-12.4); Monocytes # 0.6 K/mcL (0.0-1.3); Monocytes % 8.3 %; Platelet Count 267 K/mcL (140-400); Red Blood Count 3.23 M/mcL (3.82-4.97); Red Cell Distribution Width 16.9 % (11.5-14.5); Segmented Neutrophils % 55.2 %; White Blood Count 7.3 K/mcL (4.3-11.1)
[2019-01-03 04:54] LABS: BUN/Creatinine Ratio 22 (6-26); Blood Urea Nitrogen 13 mg/dL (8-23); Calcium 8.2 mg/dL (8.6-10.3); Carbon Dioxide 25 mEq/L (23-29); Chloride 100 mEq/L (98-107); Glucose 72 mg/dL (70-105); Osmolality,Calculated 271 (280-300); Potassium 3.6 mEq/L (3.5-5.1); Sodium 131 mEq/L (136-145); eGFR For African Americans > 60 (> 60); eGFR For Non-African Americans > 60 (> 60)
[2019-01-03] MEDS: *HR* Enoxaparin 40 MG/0.4 ML SYRINGE SQ SCH (05:13)
[2019-01-03] MEDS: Levothyroxine 25 MCG TABLET PO SCH (05:13)
[2019-01-03 05:15] LABS: Platelet Estimate Normal (Normal); Reactive Lymphocytes Present (Not Present)
[2019-01-03 05:16] LABS: Anisocytosis 1+ (Not Present); Poikilocytosis 1+ (Not Present)
[2019-01-03 05:20] LABS: Burr Cells 1+ (Not Present); Schistocytes 1+ (Not Present)
[2019-01-03] MEDS ORDERED: *HR* Enoxaparin 40 MG/0.4 ML SYRINGE SQ SCH (06:00)
[2019-01-03] MEDS: Metoprolol XL (24 HR) Succ 50 MG TAB.ER.24H PO SCH (08:39)
[2019-01-03] MEDS: Furosemide 20 MG TABLET PO SCH (08:39)
[2019-01-03] MEDS: Lisinopril 20 MG TABLET PO SCH (08:39)
[2019-01-03] MEDS: Insulin LISPRO 300 UNITS/3 ML VIAL SQ SCH (08:40)
[2019-01-03] MEDS: amLODIPine 5 MG TABLET PO SCH (08:40)
[2019-01-03] MEDS ORDERED: amLODIPine 5 MG TABLET PO SCH (09:00)
[2019-01-03] MEDS ORDERED: Furosemide 20 MG TABLET PO SCH (09:00)
[2019-01-03] MEDS ORDERED: Metoprolol XL (24 HR) Succ 50 MG TAB.ER.24H PO SCH (09:00)
[2019-01-03] MEDS ORDERED: POTASSIUM CHLORIDE 8 MEQ PO SCH (09:00)
[2019-01-03] MEDS: *HR* Metformin 500 MG TABLET PO SCH (11:42)
[2019-01-03 13:05] LABS: Estimated Average Glucose 131 mg/dl
[2019-01-03] MEDS: Silvasorb 44.4 ML TUBE TP SCH (15:44)
[2019-01-03] MEDS: Cefepime HCl 1,000 MG in 0.9 % Sodium Chloride Mini Bag 100 ML IVPB SCH (18:28)
[2019-01-04 04:09] LABS: Hematocrit 28.5 % (35.3-44.9); Mean Corpuscular HGB Conc 31.6 g/dL (31.6-35.5); Mean Corpuscular Hemoglobin 28.3 pg (28.0-33.3); Mean Corpuscular Volume 89.6 fL (83.0-100.0); Mean Platelet Volume 9.5 fL (9.4-12.4); Platelet Count 260 K/mcL (140-400); Red Blood Count 3.18 M/mcL (3.82-4.97); Red Cell Distribution Width 16.5 % (11.5-14.5); White Blood Count 6.6 K/mcL (4.3-11.1)
[2019-01-04 04:28] LABS: BUN/Creatinine Ratio 20 (6-26); Blood Urea Nitrogen 12 mg/dL (8-23); Calcium 8.3 mg/dL (8.6-10.3); Carbon Dioxide 25 mEq/L (23-29); Chloride 99 mEq/L (98-107); Glucose 103 mg/dL (70-105); Osmolality,Calculated 264 (280-300); Potassium 4.1 mEq/L (3.5-5.1); Sodium 127 mEq/L (136-145); eGFR For African Americans > 60 (> 60); eGFR For Non-African Americans > 60 (> 60)
[2019-01-04] MEDS: Cefepime HCl 1,000 MG in 0.9 % Sodium Chloride Mini Bag 100 ML IVPB SCH (06:55)
[2019-01-04] MEDS: *HR* Enoxaparin 40 MG/0.4 ML SYRINGE SQ SCH (06:56)
[2019-01-04] MEDS: Levothyroxine 25 MCG TABLET PO SCH (06:56)
[2019-01-04] MEDS ORDERED: 0.9 % Sodium Chloride 1,000 ML IVC SCH (08:00)
[2019-01-04] MEDS: Metoprolol XL (24 HR) Succ 50 MG TAB.ER.24H PO SCH (08:38)
[2019-01-04] MEDS: amLODIPine 5 MG TABLET PO SCH (08:38)
[2019-01-04] MEDS: Lisinopril 20 MG TABLET PO SCH (08:39)
[2019-01-04] MEDS: *HR* HYDROcodone/Acet 5/325 mg TABLET PO PRN ×3 (08:39→20:23)
[2019-01-04] MEDS: *HR* Metformin 500 MG TABLET PO SCH (08:39)
[2019-01-04 15:41] LABS: BUN/Creatinine Ratio 18 (6-26); Blood Urea Nitrogen 13 mg/dL (8-23); Calcium 8.2 mg/dL (8.6-10.3); Carbon Dioxide 26 mEq/L (23-29); Chloride 100 mEq/L (98-107); Glucose 170 mg/dL (70-105); Osmolality,Calculated 268 (280-300); Potassium 4.6 mEq/L (3.5-5.1); Sodium 127 mEq/L (136-145); eGFR For African Americans > 60 (> 60); eGFR For Non-African Americans > 60 (> 60)
[2019-01-04] MEDS: Silvasorb 44.4 ML TUBE TP SCH (16:31)
[2019-01-04] MEDS: 0.9 % Sodium Chloride 1,000 ML IVC SCH (18:18)
[2019-01-04 19:19] LABS: Sodium, Urine 117.8 mEq/L
[2019-01-05] MEDS: 0.9 % Sodium Chloride 1,000 ML IVC SCH (02:25)
[2019-01-05 05:28] LABS: BUN/Creatinine Ratio 20 (6-26); Blood Urea Nitrogen 11 mg/dL (8-23); Calcium 8.1 mg/dL (8.6-10.3); Carbon Dioxide 23 mEq/L (23-29); Chloride 101 mEq/L (98-107); Glucose 141 mg/dL (70-105); Osmolality,Calculated 270 (280-300); Potassium 4.1 mEq/L (3.5-5.1); Sodium 129 mEq/L (136-145); eGFR For African Americans > 60 (> 60); eGFR For Non-African Americans > 60 (> 60)
[2019-01-05] MEDS: Levothyroxine 25 MCG TABLET PO SCH (05:30)
[2019-01-05] MEDS: *HR* Enoxaparin 40 MG/0.4 ML SYRINGE SQ SCH (05:30)
[2019-01-05] MEDS: *HR* HYDROcodone/Acet 5/325 mg TABLET PO PRN (05:30)
[2019-01-05] MEDS: amLODIPine 5 MG TABLET PO SCH (08:15)
[2019-01-05] MEDS: Lisinopril 20 MG TABLET PO SCH (08:15)
[2019-01-05] MEDS: *HR* Metformin 500 MG TABLET PO SCH (08:16)
[2019-01-05] MEDS: Metoprolol XL (24 HR) Succ 50 MG TAB.ER.24H PO SCH (08:16)
[2019-01-05] MEDS: Silvasorb 44.4 ML TUBE TP SCH (11:04)
[2019-01-05 12:39] VITALS: BP 128/70
== END 2019-01-05 12:39 | disposition home health service (06) | DRG 638 ==
LOC: 2ANU → SUATTDRO 11:18
PROVIDERS: ADMIT Internal Medicine; ATTEND Internal Medicine